=== PATIENT | male | born 1955 | race Caucasian/White ===

== ENCOUNTER → 2023-12-02 11:39 | Outpatient (BNVA) | payer SELFPAY | PROVIDERS: PCP Internal Medicine ==

== ENCOUNTER 2024-06-18 05:01 | Inpatient (IN) | payer OTHER, SELFPAY ==
--- NOTE | ~2024-06-18 | CT_ITS ---
EXAMINATION: CT ABDOMEN AND PELVIS WITHOUT CONTRAST CLINICAL INFORMATION: Left lower quadrant/flank pain. Nausea and vomiting. COMPARISON: CT abdomen and pelvis 05/18/2008.. TECHNIQUE: Multidetector volumetric imaging was performed from the superior aspect of the liver through the pubic symphysis. Sagittal and coronal reformatted images were obtained on the technologist's workstation. This CT examination was performed using dose optimization techniques as appropriate, variously including the following: *Automated exposure control *Adjustment of mA and/or kV according to patient size (this includes techniques or standardized protocols for targeted exams where dose is matched to indication/reason for exam; i.e. extremities or head) *Use of iterative reconstruction technique FINDINGS: LUNG BASES: There is bibasilar platelike atelectasis. The heart size is normal. LIVER, GALLBLADDER, AND BILIARY TREE: The liver is normal in size, shape, and attenuation. There is diffuse attenuation of liver without focal lesion. No intrahepatic ductal dilatation. The gallbladder is unremarkable with no evidence of radiopaque gallstones, gallbladder wall thickening, or obvious pericholecystic inflammatory changes. PANCREAS: Unremarkable. SPLEEN: Unremarkable. A small axis is 1.6 cm splenule is seen along the inferior tip of spleen. ADRENAL GLANDS: Unremarkable. KIDNEYS AND URETERS: The kidneys are normal in size, shape, and attenuation. The left kidney is slightly enlarged with perinephric stranding and mild hydroureteronephrosis secondary to an obstructive 4 mm radiopaque calculi right mid/distal ureter. There are nonobstructive 2 mm and 1 mm radiopaque calculi lower pole left kidney. There are no radiopaque calculus in right kidney. There are bilateral exophytic isodense lesions to kidney probable cyst. Largest mid pole right kidney is 1 cm BLADDER: Unremarkable. GASTROINTESTINAL TRACT: Diffuse scattered colonic diverticuli seen with mild constipation. The small bowel loops are normal caliber. Appendix is not visualized. ABDOMINAL WALL: Mild left inguinal hernia containing fat. LYMPH NODES: Normal. VASCULAR: Unremarkable. PELVIC VISCERA: Unremarkable. OSSEOUS STRUCTURES: No aggressive lytic or sclerotic process seen. CT/CT abdomen pelvis wo IV con IMPRESSION: Nonobstructive radiopaque calculi left mid/distal ureter with mild hydroureteronephrosis. Small radiopaque nonobstructing calculi in left kidney lower pole. Bilateral exophytic renal lesions most on the right probable cyst. Colonic diverticulosis most prominent in the sigmoid region. No diverticulitis. Hepatic steatosis. Bibasilar platelike atelectasis. Prominent left inguinal canal containing fat. Fleischner guidelines were followed. Electronically signed by: Gregory Villegas MD 06/18/2024 09:09 AM [facility]
--- NOTE | ~2024-06-18 | US_ITS ---
CLINICAL HISTORY: left ureteral stone [address] US Renal (limited). Comparison: CT of the abdomen from 06/18/2024. Findings: Right kidney is not evaluated. Left kidney measures 11.7 cm long axis. Mild left-sided hydroureteronephrosis persists without significant change from comparison. Cystic lesions measure 1.5 cm in 1 cm in the midportion and lower pole of the imaged left kidney. Neither ureteral jet is visualized by the technologist in the urinary bladder. No ultrasound correlate for the known stone in the distal portion of the left ureter noted on the comparison CT. Mild wall thickening of the imaged urinary bladder is likely due to underdistention at the time of the imaging. IMPRESSION: 1. No significant change in mild left-sided hydroureteronephrosis compared to 06/18/2024. 2. The right kidney is not imaged. This document has been electronically signed by: Franklin Obando MD on 06/20/2024 19:26:56
--- NOTE | ~2024-06-18 | FL_ITS ---
EXAMINATION: XR FLUOROSCOPY WITH IMAGES CLINICAL INFORMATION: Cystoscopy with left laser lithotripsy and stent placement. COMPARISON: CT abdomen and pelvis 06/18/2024. TECHNIQUE: Fluoroscopy provided to: Dr. Parish Fluoroscopy time: 0.3 minutes Dose: 12.26 mGy Images: 4 FINDINGS: 4 images during retrograde cystoscopy and left ureteroscopy, laser lithotripsy, and subsequent left ureteral stent placement. Please refer to the full operative report for details. FL/FL guidance in OR IMPRESSION: Fluoroscopic guidance. Electronically signed by: Jeffery Dasilva MD 06/23/2024 12:15 PM [facility]
[2024-06-18 05:04] VITALS: BP 166/67; PULSE 120; RESP 18; TEMP 36.7; O2SAT 95; BMI 39.9
[2024-06-18 05:20] LABS: MANUAL DIFF FLAG NO
[2024-06-18 05:21] LABS: Basophils Absolute Auto 0.1 X10*3/uL (0.0-0.2); Basophils Percent Auto 0.4 % (0-2); Eosinophils Percent Auto 0.2 % (0-4); Hematocrit 44.2 % (42.0-52.0); Hemoglobin 15.2 g/dl (14.0-18.0); Imm Gran Abs Auto 0.03 X10*3/uL (0.00-0.03); Imm Gran Pct Auto 0.2 % (0.0-0.4); Lymphocytes Absolute Auto 1.4 X10*3/uL (1.2-4.9); Lymphocytes Percent Auto 10.6 % (20-40); Mean Corpuscular HGB Conc 34.4 g/dl (31.0-36.0); Mean Corpuscular Hemoglobin 28.6 pg (27.0-33.0); Mean Corpuscular Volume 83.1 fL (80.0-98.0); Mean Platelet Volume 9.6 fL (9.4-12.4); Monocytes Absolute Auto 1.2 X10*3/uL (0.1-1.2); Monocytes Percent Auto 9.6 % (2-11); Neutrophils Absolute Auto 10.1 x10*3/uL (2.0-8.3); Platelet Count 233 X10*3/uL (160-400); Red Blood Count 5.32 X10*6/uL (4.60-5.80); Red Cell Distribution Width 13.2 % (11.0-16.0); White Blood Count 12.7 X10*3/uL (4.8-10.8)
[2024-06-18 05:31] VITALS: BP 156/103; PULSE 110; RESP 18; TEMP 37.3; O2SAT 94
[2024-06-18 05:40] LABS: Alanine Aminotransferase 28 U/L (0-40); Albumin Level 4.1 g/dL (3.5-5.0); Alkaline Phosphatase 78 U/L (39-117); Anion Gap 13 (12-20); Aspartate Amino Transferase 32 U/L (5-37); Bilirubin Total 1.5 mg/dL (0.0-1.0); Blood Urea Nitrogen 25 mg/dL (9-16); Calcium 9.2 mg/dL (8.4-10.2); Carbon Dioxide 22 mmol/L (22-29); Chloride 107 mmol/L (96-108); Creatinine Clr Calc Pharmacy 37.4; Estimated Glomerular Filt Rate 33; Glucose Random 167 mg/dL (60-115); Lipase 23 U/L (8-78); Sodium 138 mmol/L (135-145); Total Protein 7.7 g/dL (6.5-8.0)
[2024-06-18 05:49] LABS: Appearance Urine Clear; Color Urine Dark Yellow; Glucose Urine UA Negative (Negative); Leukocyte Esterase Urine Negative (Negative); Nitrite Urine Negative (Negative); PH 5.5 (5.0-9.0); Specific Gravity - Urine >= 1.030 (1.005-1.025); UMIC TRIGGER UACC YES; Urine Blood Small (1+) (Negative); Urine Ketones Negative (Negative); Urine Protein 100 (2+) mg/dL (Neg-Trace)
[2024-06-18 06:19] LABS: Bacteria Urine None Seen (None Seen); Hyaline Casts Urine 0-2 /LPF (0-2); RBC Urine 0-2 /HPF (0-2); Squamous Epithelial Cell Urine 0-2 /HPF (0-2); WBC Urine 0-5 /HPF (0-5)
--- NOTE | 2024-06-18 07:02 | ED_ITS ---
HPI - Back Pain/Injury General Chief Complaint: Back Pain/Injury Stated Complaint: lower back pain Time Seen by Provider: 06/18/24 06:35 Source: patient, RN notes reviewed and old records reviewed Mode of arrival: ambulatory History of Present Illness ED Provider: Alice Reed PA-C HPI Narrative: 68-year-old male with no significant past medical history presenting to the ED complaining of intermittent left lower quadrant abdominal pain x4 days with radiation to back. Reports associated nausea and vomiting. States urine noted to be dark. Denies fever, chills, diarrhea, dysuria, marya hematuria, history of stones, prior abdominal surgeries Related Data Allergies Allergy/AdvReac Type Severity Reaction Status Date / Time No Known Allergies Allergy Verified 06/18/24 05:08 Review of Systems 2 Review of Systems: Yes all other systems are reviewed and are negative Constitutional: Constitutional: Reports as per [facility] Past Medical History Attestation statement: The following information was validated with the patient. Source: old records reviewed Social History Social History Smoked in Last 30 Days: No Advance Directives: No Do you have a plan to hurt others: No Plan Physical Exam 2 Vital Signs: Vital Signs: Last Vital Signs Temp 99.9 F 06/18/24 08:31 Pulse 96 06/18/24 08:31 Resp 16 06/18/24 08:31 BP 160/84 H 06/18/24 08:31 Pulse Ox 94 06/18/24 08:31 O2 Del Method Room Air 06/18/24 08:31 BMI result Body Mass Index 39.9 Const: General: cooperative, healthy appearing and no acute distress O rientation/consciousness: patient oriented x3 Limitations: no limitations HEENT: Head: Yes normal to inspection and Yes atraumatic Ears: hearing grossly normal bilaterally General nose exam: Normal external nose present Face and sinus: Yes normal facial exam Eyes: General: appearance normal, both eyes and all related structures EOM: EOMs intact bilaterally Neck: Neck: Yes normal visual inspection and Yes no meningeal signs Resp: Effort & Inspection: normal respiratory effort and no respiratory distress Auscultation: clear to auscultation bilaterally Cardio: Rate: regular rate and tachycardic Heart sounds: S1 normal heart sound present and S2 normal heart sound present GI: Inspection: Yes normal to inspection Palpation (GI): Soft to palpation, Tenderness to palpation present (GI) in the LLQ; with no rebound tenderness, no guarding and not rigid : General: Yes CVA tenderness on the left Back/Spine/Pelvis: Back: CVA tenderness Skin: Rashes: no rashes Wounds: no wounds Neuro: General: patient oriented x3, tone normal and no meningeal signs C ranial nerves: Yes CN's II-XII intact bilaterally Gait exam (Neuro): Normal gait present Extrem: General: Yes normal to inspection Course Course Course Narrative: -711--leukocytosis of 12.7. BRIGIDA with BUN 25, creatinine 2.0. T bili 1.5 -UA not infected. Small blood > still low suspicion for severe sepsis. No evidence of infection. Vital sign abnormalities likely from pain. BRIGIDA suspected from obstructive pathology 929--patient is still in significant amount of pain CT abdomen pelvis wo IV con IMPRESSION: Nonobstructive radiopaque calculi left mid/distal ureter with mild hydroureteronephrosis. Small radiopaque nonobstructing calculi in left kidney lower pole. Bilateral exophytic renal lesions most on the right probable cyst. Colonic diverticulosis most prominent in the sigmoid region. No diverticulitis. Hepatic steatosis. Bibasilar platelike atelectasis. Prominent left inguinal canal containing fat. Fleischner guidelines were followed. ADDENDUM #1 The impression should correctly read as follows, Obstructive 4 mm radiopaque calculi left mid/distal ureter with mild hydronephrosis. > will consult Urology, Dr. Decker >> recommended medicine admission due to age and he will consult. Case discussed with hospitalist, MANUELA De La Cruz Medications Administered Discontinued Medications Generic Name Dose Route Start Last Admin Trade Name Freq PRN Reason Stop Dose Admin Sodium Chloride 1,000 mls @ 999 mls/hr 06/18/24 07:00 06/18/24 09:01 Ns IV 06/18/24 08:00 Infused .Q1H1M RERE Infusion Sodium Chloride 1,000 mls @ 999 mls/hr 06/18/24 07:15 06/18/24 10:03 Ns IV 06/18/24 08:15 Infused .Q1H1M RERE Infusion Ketorolac Tromethamine 15 mg 06/18/24 09:07 06/18/24 09:25 Ketorolac Tromethamine 15 Mg/Ml Vial IVPUSH 06/18/24 09:08 15 mg ONCE ONE Administration Morphine Sulfate 4 mg 06/18/24 06:57 06/18/24 07:10 Morphine Sulfate 4 Mg/Ml Cartridge IVPUSH 06/18/24 06:58 4 mg ONCE ONE Administration Protocol Morphine Sulfate 4 mg 06/18/24 09:07 06/18/24 09:25 Morphine Sulfate 4 Mg/Ml Cartridge IVPUSH 06/18/24 09:08 4 mg ONCE ONE Administration Protocol Ondansetron HCl 4 mg 06/18/24 06:57 06/18/24 07:10 Ondansetron Hcl 4 Mg/2 Ml Vial IVPUSH 06/18/24 06:58 4 mg ONCE ONE Administration Tamsulosin HCl 0.4 mg 06/18/24 09:33 06/18/24 10:30 Tamsulosin Hcl 0.4 Mg Capsule PO 06/18/24 09:34 0.4 mg ONCE ONE Administration Medical Decision Making Medical Decision Making MDM Narrative: 68-year-old male with no significant past medical history presenting to the ED complaining of intermittent left lower quadrant abdominal pain x4 days with radiation to back. On exam hypertensive, tachycardic likely from pain, appears uncomfortable, abdomen soft with LLQ & L CVAT. Concern for renal stone vs pyelo vs UTI. Rule out diverticulitis. Lower suspicion for appendicitis, cholecystitis/lithiasis, pancreatitis or testicular torsion at this time Low suspicion for severe sepsis at this time Plan: Labs, UA, CT AP, IVF, pain control Please refer to course for remaining clinical decision making, interpretation of labs/imaging results, and discussions with consultants and/or family members. Differential Diagnosis Differential Diagnoses: The differential diagnosis associated with the presentation includes As above Admission/Observation Consideration of admission/observation: Escalation of care including admission/observation considered Consult Healthcare Provider Management of the patient was discussed with: Hospitalist and [employer] Lab Data MDM Lab Attestation statement: I reviewed the patient's lab results. 06/18/24 05:11 06/18/24 05:11 Labs: Lab Results 06/18/24 06/18/24 Range/Units 05:11 05:42 WBC 12.7 H (4.8-10.8) X10*3/uL RBC 5.32 (4.60-5.80) X10*6/uL Hgb 15.2 (14.0-18.0) g/dl Hct 44.2 (42.0-52.0) % MCV 83.1 (80.0-98.0) fL MCH 28.6 (27.0-33.0) pg MCHC 34.4 (31.0-36.0) g/dl RDW 13.2 (11.0-16.0) % Plt Count 233 (160-400) X10*3/uL MPV 9.6 (9.4-12.4) fL Immature Gran % (Auto) 0.2 (0.0-0.4) % Neut % (Auto) 79.0 H (45-73) % Lymph % (Auto) 10.6 L (20-40) % [place] % (Auto) 9.6 (2-11) % Eos % (Auto) 0.2 (0-4) % Baso % (Auto) 0.4 (0-2) % Lymph # (Auto) 1.4 (1.2-4.9) X10*3/uL [place] # (Auto) 1.2 (0.1-1.2) X10*3/uL Eos # (Auto) 0.0 (0.0-0.4) X10*3/uL Baso # (Auto) 0.1 (0.0-0.2) X10*3/uL Abs Immat Gran (auto) 0.03 (0.00-0.03) X10*3/uL Absolute Neuts (auto) 10.1 H (2.0-8.3) x10*3/uL Absolute Nucleated RBC 0.000 (0.0-0.012) X10*3/uL Nucleated RBC % (auto) 0.0 (0.0-0.2) /100WBC Sodium 138 (135-145) mmol/L Potassium 4.0 (3.3-5.1) mmol/L Chloride 107 (96-108) mmol/L Carbon Dioxide 22 (22-29) mmol/L Anion Gap 13 (12-20) BUN 25 H (9-16) mg/dL Creatinine 2.00 H (0.5-1.4) mg/dL Estim Creat Clear Calc 37.4 Estimated GFR 33 Random Glucose 167 H (60-115) mg/dL Calcium 9.2 (8.4-10.2) mg/dL Magnesium 1.9 (1.6-2.6) mg/dL Total Bilirubin 1.5 H (0.0-1.0) mg/dL AST 32 (5-37) U/L ALT 28 (0-40) U/L Alkaline Phosphatase 78 (39-117) U/L Total Protein 7.7 (6.5-8.0) g/dL Albumin 4.1 (3.5-5.0) g/dL Lipase 23 (8-78) U/L Urine Color Dark Yellow Urine Appearance Clear Urine pH 5.5 (5.0-9.0) Ur Specific [place] >= 1.030 H (1.005-1.025) Urine Protein 100 (2+) H (Neg-Trace) mg/dL Urine Glucose (UA) Negative (Negative) mg/dL Urine Ketones Negative (Negative) mg/dL Urine Blood Small (1+) H (Negative) Urine Nitrite Negative (Negative) Ur Leukocyte Esterase Negative (Negative) Urine RBC 0-2 (0-2) /HPF Urine WBC 0-5 (0-5) /HPF Ur Squamous Epith Cells 0-2 (0-2) /HPF Urine Bacteria None Seen (None Seen) Hyaline Casts 0-2 (0-2) /LPF Independent Interpretation I performed an independent interpretation of an: CT Scan Radiology Impression Discussion of test interpretation with radiology: I have reviewed the radiologist's reading. External Record Review External record reviewed: Inpatient record, Office record, Outpatient record, Prior outpatient labs, Prior outpatient radiology, Primary care record and Outside ED record Tests considered The following testing was considered but not selected: As above Prescription Management I considered prescription management with: Pain Medication and Antibiotic Chronic Conditions Patient?s care impacted by: Other Social Determinants Patient?s care significantly limited by Social Determinants of Health including: Other Social Determinant of Health Critical Care Time Critical Care Time Critical Care Time: Yes Total Critical Care Time: 45 Attestation: I have personally provided critical care time exclusive of time spent on separately billable procedures. Time includes review of lab data, radiology results, discussion with consultants, and monitoring for potential decompensation. Intervention performed as documented. Discharge Plan Discharge Clinical Impression: Ureteral obstruction, left, Hydronephrosis Patient Disposition: Admitted As Inpatient Print Language: Malay
--- NOTE | 2024-06-18 07:02 | PC.NURSE ---
Pt medicated per mar.
[2024-06-18] MEDS: ondansetron HCL 4 MG/2 ML VIAL IVPUSH (07:10)
[2024-06-18] MEDS: Morphine Sulfate 4 MG/ML CARTRIDGE IVPUSH ×2 (07:10→09:25)
[2024-06-18] MEDS: 0.9 % Sodium Chloride 1,000 ML 999 ML IV ×2 (07:10→09:01)
[2024-06-18 07:12] LABS: Magnesium 1.9 mg/dL (1.6-2.6)
[2024-06-18 08:31] VITALS: BP 160/84; PULSE 96; RESP 16; TEMP 37.7; O2SAT 94
[2024-06-18] MEDS: Ketorolac Tromethamine 15 MG/ML VIAL IVPUSH (09:25)
[2024-06-18] MEDS: Tamsulosin HCL 0.4 MG CAPSULE PO (10:30)
--- NOTE | 2024-06-18 11:00 | PHA.MEDREC ---
Addendum entered by Laura Mehta RPh 06/18/24 11:02: Reviewed by [facility]. Original Note: Pharmacy Consult ? Medication Reconciliation Pharmacy has completed the medication reconciliation.
--- NOTE | 2024-06-18 11:36 | PM.IMHP ---
History of Present Illness Date of Service: 06/18/24 Attending physician on admission: Grisel Wheeler Chief Complaint: Abdominal pain Pt is a 68-year-old male without any significant PMH not on home medications who has not seen a PCP for 15+ years who presents to the ED for evaluation of LLQ abdominal pain radiating to back and associated N/V x4 days. Pt reports has also experienced reduced urine output in the does urine and also turned dark colored. Has not been eating or drinking much during this time due to pain and N/V. Has never experienced similar symptoms in the past. No fever, chills. Denies chest pain/pressure, palpitations. No shortness a breath or difficulty breathing. Pt has a remote smoking history though quit 40 years ago. Denies alcohol or illicit substance use. In the ED pt was tachycardic up to 120 and hypertensive to 166/67. Labs were significant for leukocytosis 12.7, BUN 25, creatinine 2.00 (baseline unknown), and T bili 1.5. Stable H&H. No significant electrolyte abnormalities. UA negative for UTI. CT?of abdomen and pelvis found nonobstructive 4 mm calculi in left ureter with mild hydroureteronephrosis. Pt was treated with IVF, ondansetron, morphine, ketorolac, and tamsulosin. Pt will be admitted to the hospital for BRIGIDA and intractable abd pain in the setting of nonobstructing ureterolithiasis with hydroureteronephrosis. Review of Systems Review of Systems: Negative except for that which is stated in the [facility] Social History Smoked in Last 30 Days: No Advance Directives: No Do you have a plan to hurt others: No Plan Meds Allergies Allergy/AdvReac Type Severity Reaction Status Date / Time No Known Allergies Allergy Verified 06/18/24 05:08 Home Medications ?Medication ?Instructions ?Recorded ?Confirmed ?Last Taken ?Type No Known Home Meds 06/18/24 06/18/24 Unknown History Physical Exam Vital Signs and Narrative: Vital Signs: Last Vital Signs Temp 99.9 F 06/18/24 08:31 Pulse 96 06/18/24 08:31 Resp 16 06/18/24 08:31 BP 160/84 H 06/18/24 08:31 Pulse Ox 94 06/18/24 08:31 O2 Del Method Room Air 06/18/24 08:31 BMI result Body Mass Index 39.9 General: AOx3, no acute distress Resp: CTA bilaterally CVS: S1, S2, RRR GI: +BS, no distention, LLQ tenderness Back: Left CVA tenderness Skin: Warm, dry Neuro: Cranial nerves II-XII grossly intact bilaterally. Motor grossly intact bilaterally Extremities: No edema Psych: Appropriate affect Results Labs 06/18/24 05:11 06/18/24 05:11 Labs: Laboratory Results - last 24 hr 06/18/24 06/18/24 05:11 05:42 MCV 83.1 MCH 28.6 MCHC 34.4 RDW 13.2 Plt Count 233 MPV 9.6 Immature Gran % (Auto) 0.2 Neut % (Auto) 79.0 H Lymph % (Auto) 10.6 L [place] % (Auto) 9.6 Eos % (Auto) 0.2 Baso % (Auto) 0.4 Lymph # (Auto) 1.4 [place] # (Auto) 1.2 Eos # (Auto) 0.0 Baso # (Auto) 0.1 Abs Immat Gran (auto) 0.03 Absolute Neuts (auto) 10.1 H Absolute Nucleated RBC 0.000 Nucleated RBC % (auto) 0.0 Anion Gap 13 Estim Creat Clear Calc 37.4 Estimated GFR 33 Random Glucose 167 H Calcium 9.2 Magnesium 1.9 Total Bilirubin 1.5 H AST 32 ALT 28 Alkaline Phosphatase 78 Total Protein 7.7 Albumin 4.1 Lipase 23 Urine Color Dark Yellow Urine Appearance Clear Urine pH 5.5 Ur Specific [place] >= 1.030 H Urine Protein 100 (2+) H Urine Glucose (UA) Negative Urine Ketones Negative Urine Blood Small (1+) H Urine Nitrite Negative Ur Leukocyte Esterase Negative Urine RBC 0-2 Urine WBC 0-5 Ur Squamous Epith Cells 0-2 Urine Bacteria None Seen Hyaline Casts 0-2 Imaging Radiologist's Impressions: Impressions Abdomen/Pelvis CT 06/18/24 08:22 IMPRESSION: Nonobstructive radiopaque calculi left mid/distal ureter with mild hydroureteronephrosis. Small radiopaque nonobstructing calculi in left kidney lower pole. Bilateral exophytic renal lesions most on the right probable cyst. Colonic diverticulosis most prominent in the sigmoid region. No diverticulitis. Hepatic steatosis. Bibasilar platelike atelectasis. Prominent left inguinal canal containing fat. Fleischner guidelines were followed. Electronically signed by: Gregory Villegas MD 06/18/2024 09:09 AM [facility] [place] and Plan (1) Hydronephrosis: Status: Acute (2) BRIGIDA (acute kidney injury): Status: Acute Plan Pt is a 68-year-old male without any significant PMH not on home medications who has not seen a PCP for 15+ years who presents to the ED for evaluation of LLQ abdominal pain radiating to back and associated N/V x4 days. Pt will be admitted to the hospital for BRIGIDA and intractable abd pain in the setting of nonobstructing ureterolithiasis with hydroureteronephrosis. BRIGIDA in the setting of ureterolithiasis with hydroureter nephrosis Patient's creatinine 2.00 at time of presentation CT of abdomen/pelvis found nonobstructive ureteral calculi with mild hydroureteronephrosis Pt with decreased urine output, reduced p.o. intake Will treat with IVF, tamsulosin, analgesics for pain management Screen urine x24 hours to see if passes on its own Urology consult Follow creatinine Leukocytosis Reactionary, not due to sepsis UA negative No indication for antibiotics at this time Elevated BP Pt denies any previous history of hypertension Has health checkups every other year for his job though does not follow with PCP Possibly secondary to pain Will monitor BP Full Code Attending:?Dr. Wheeler DVT Prophylaxis: Pneumatic compression due to possible urologic procedure. Pt will require a hospitalization of at least two nights for treatment of?BRIGIDA intractable abdominal pain in the setting of nonobstructing ureterolithiasis with hydroureteronephrosis. Pt will require hospital level care administration of IVF, IV analgesics, and specialist consultation with Urology with possible cystoscopy and stenting. Quality Stroke Does the patient have a stroke diagnosis?: No VTE Prior VTE?: No VTE Risk Level:: Medical - moderate - high VTE Device Contraindication: N/A - Device Ordered VTE Drug Contraindication: Treatment Not Indicated
[2024-06-18 13:43] VITALS: BP 139/70; PULSE 95; RESP 16; TEMP 37.2; O2SAT 95
[2024-06-18] MEDS: Lactated Ringers 1,000 ML 100 ML IVCONT ×2 (13:48→23:26)
[2024-06-18] MEDS: 0.9 % Sodium Chloride Flush 3 ML SYRINGE IVFLUSH (13:48)
--- NOTE | 2024-06-18 14:05 | PC.NURSE ---
complaining of left flank pain at this time but states that it is improved. no nausea/vomiting. skin pwd. moist mm. aware of plan for proceedure in am, NPO at midnight and to strain urine.
[2024-06-18 16:15] VITALS: BP 147/86; PULSE 93; RESP 20; TEMP 36.6; O2SAT 95
[2024-06-18 17:02] VITALS: BMI 40.5
[2024-06-18 19:03] VITALS: BP 145/93; PULSE 99; RESP 20; TEMP 37.2; O2SAT 96
[2024-06-18] MEDS: oxyCODONE HCl Immed Release 5 MG TABLET PO (23:36)
[2024-06-19] VITALS (8 sets, daily range): BP systolic 142–198; BP diastolic 82–110; PULSE 92–120; RESP 16–20; TEMP 36.3–36.9; O2SAT 92–97
[2024-06-19] MEDS: Morphine Sulfate 4 MG/ML CARTRIDGE IVPUSH (00:03)
--- NOTE | 2024-06-19 04:37 | PC.NURSE ---
Patient with elevated bp manual 178/90, hr 101, rechecked about 30 min later 165/88. Patient reporting 8/10 left flank pain but does not want to take any pain meds at this time, reporting pain comes and goes. Patient continues to strain urine. Dr. Frye notified of elevated bp.
[2024-06-19 06:16] LABS: Hematocrit 39.1 % (42.0-52.0); Hemoglobin 12.9 g/dl (14.0-18.0); Mean Corpuscular Hemoglobin 28.2 pg (27.0-33.0); Mean Corpuscular Volume 85.6 fL (80.0-98.0); Mean Platelet Volume 10.2 fL (9.4-12.4); Platelet Count 157 X10*3/uL (160-400); Red Blood Count 4.57 X10*6/uL (4.60-5.80); Red Cell Distribution Width 13.3 % (11.0-16.0); White Blood Count 8.1 X10*3/uL (4.8-10.8)
[2024-06-19 06:29] LABS: Anion Gap 9 (12-20); Blood Urea Nitrogen 27 mg/dL (9-16); Calcium 8.5 mg/dL (8.4-10.2); Carbon Dioxide 23 mmol/L (22-29); Chloride 110 mmol/L (96-108); Creatinine Clr Calc Pharmacy 38.6; Estimated Glomerular Filt Rate 34; Glucose Random 122 mg/dL (60-115); Potassium 4.2 mmol/L (3.3-5.1); Sodium 138 mmol/L (135-145)
--- NOTE | 2024-06-19 08:41 | PM.UROCN ---
History of Present Illness Consult details Consult date: 06/19/24 Narrative: Ermias is a 68 year old male admitted with left flank pain x several days, CTAP left renal calculi, non obstructive, and 4 mm left mid ureteral stone, minimal hydronephrosis, labs BRIGIDA. Plan to monitor with supportive management IV fluid hydration, pain management to see if he passes stone. Review of Systems Review of Systems: Yes all other systems are reviewed and are negative Constitutional: Constitutional: Reports no additional constitutional complaints Eyes: Eyes: Reports no additional eye complaints ENT: Reports system reviewed and no additional complaints, except as documented Cardiovascular: Cardiovascular: Reports no additional cardiovascular complaints Respiratory: Respiratory: Reports no additional respiratory complaints Gastrointestinal: Gastrointestinal: Reports no additional gastrointestinal complaints Genitourinary: Genitourinary: Reports as per HPI Musculoskeletal: Musculoskeletal: Reports no additional musculoskeletal complaints Integumentary/Breasts: Skin/Breast: Reports system reviewed and no additional complaints, except as docu Neurologic: Reports system reviewed and no additional complaints, except as documented Psychiatric: Psychiatric: Reports no additional psychiatric complaints Endocrine: Endocrine: Reports no additional endocrine complaints Hematologic/Lymphatic: Hematologic/Lymphatic: Reports no additional hematologic/lymphatic complaints Allergic/Immunologic: Allergic/Immunologic: Reports no additional allergic/immunologic complaints PMFSH Social History Social History Household Members: Family and Children Housing: House Do you presently have visiting nurse or other home services: No Patient Tobacco Use Status: Never used Tobacco Meds Allergies Allergy/AdvReac Type Severity Reaction Status Date / Time No Known Allergies Allergy Verified 06/18/24 05:08 Active Medications: Current Medications Acetaminophen (Acetaminophen 325 Mg Tablet) 650 mg PO Q6H PRN PRN Reason: Pain, Mild 1-3,fever,headache Calcium Carbonate (Calcium Carbonate 750 Mg Tab.Chew) 750 mg PO Q4H PRN PRN Reason: Heartburn Lactated Ringer's (Lr) 1,000 mls @ 100 mls/hr IVCONT .Q10H [facility] Last Admin: 06/18/24 23:26 Dose: 100 mls/hr Magnesium Hydroxide (Milk Of Magnesia 30 Ml Oral.Susp) 30 ml PO DAILY PRN PRN Reason: Constipation Melatonin (Melatonin 3 Mg Tablet) 6 mg PO BEDTIME PRN PRN Reason: Insomnia Morphine Sulfate (Morphine Sulfate 4 Mg/Ml Cartridge) 4 mg IVPUSH Q4H PRN; Protocol PRN Reason: Pain, Severe (Pain Scale 7-10) Last Admin: 06/19/24 00:03 Dose: 4 mg Ondansetron HCl (Ondansetron Hcl 4 Mg/2 Ml Vial) 4 mg IVPUSH Q8H PRN PRN Reason: Nausea and Vomiting Oxycodone HCl (Oxycodone Hcl Immed Release 5 Mg Tablet) 5 mg PO Q6H PRN PRN Reason: Pain, Moderate(Pain Scale 4-6) Last Admin: 06/18/24 23:36 Dose: 5 mg Sodium Chloride (0.9 % Sodium Chloride Flush 3 Ml Syringe) 3 ml IVFLUSH QSHIFT [facility] Last Admin: 06/19/24 08:40 Dose: Not Given Tamsulosin HCl (Tamsulosin Hcl 0.4 Mg Capsule) 0.4 mg PO DAILY [facility] Home Medications ?Medication ?Instructions ?Recorded ?Confirmed ?Last Taken ?Type No Known Home Meds 06/18/24 06/18/24 Unknown History Physical Exam Vital Signs: Vital Signs: Last Vital Signs Temp 97.8 F 06/19/24 07:38 Pulse 92 06/19/24 07:38 Resp 16 06/19/24 07:38 BP 150/90 H 06/19/24 07:38 Pulse Ox 95 06/19/24 07:38 O2 Del Method Room Air 06/19/24 07:38 BMI result Body Mass Index 40.5 Results Labs 06/19/24 05:24 06/19/24 05:24 Labs: Abnormal lab results 06/19/24 Range/Units 05:24 RBC 4.57 L (4.60-5.80) X10*6/uL Hgb 12.9 L (14.0-18.0) g/dl Hct 39.1 L (42.0-52.0) % Plt Count 157 L D (160-400) X10*3/uL Chloride 110 H (96-108) mmol/L Anion Gap 9 L (12-20) BUN 27 H (9-16) mg/dL Creatinine 1.96 H (0.5-1.4) mg/dL Random Glucose 122 H (60-115) mg/dL Short CBC 06/19/24 Range/Units 05:24 WBC 8.1 (4.8-10.8) X10*3/uL Hgb 12.9 L (14.0-18.0) g/dl Hct 39.1 L (42.0-52.0) % Plt Count 157 L D (160-400) X10*3/uL BMP 06/19/24 05:24 Sodium 138 Potassium 4.2 Chloride 110 H Carbon Dioxide 23 BUN 27 H Creatinine 1.96 H Calcium 8.5 D Urine 06/18/24 Range/Units 05:42 Urine Color Dark Yellow Urine Appearance Clear Urine pH 5.5 (5.0-9.0) Ur Specific [place] >= 1.030 H (1.005-1.025) Urine Protein 100 (2+) H (Neg-Trace) mg/dL Urine Glucose (UA) Negative (Negative) mg/dL Imaging Abdomen CT scan report/results: report reviewed and image reviewed CT scan - pelvis: report reviewed and image reviewed Additional studies: TD/TT: 06/18/24 EXAMINATION: CT ABDOMEN AND PELVIS WITHOUT CONTRAST CLINICAL INFORMATION: Left lower quadrant/flank pain. Nausea and vomiting. COMPARISON: CT abdomen and pelvis 05/18/2008.. TECHNIQUE: Multidetector volumetric imaging was performed from the superior aspect of the liver through the pubic symphysis. Sagittal and coronal reformatted images were obtained on the technologist's workstation. This CT examination was performed using dose optimization techniques as appropriate, variously including the following: *Automated exposure control *Adjustment of mA and/or kV according to patient size (this includes techniques or standardized protocols for targeted exams where dose is matched to indication/reason for exam; i.e. extremities or head) *Use of iterative reconstruction technique FINDINGS: LUNG BASES: There is bibasilar platelike atelectasis. The heart size is normal. LIVER, GALLBLADDER, AND BILIARY TREE: The liver is normal in size, shape, and attenuation. There is diffuse attenuation of liver without focal lesion. No intrahepatic ductal dilatation. The gallbladder is unremarkable with no evidence of radiopaque gallstones, gallbladder wall thickening, or obvious pericholecystic inflammatory changes. PANCREAS: Unremarkable. SPLEEN: Unremarkable. A small axis is 1.6 cm splenule is seen along the inferior tip of spleen. ADRENAL GLANDS: Unremarkable. KIDNEYS AND URETERS: The kidneys are normal in size, shape, and attenuation. The left kidney is slightly enlarged with perinephric stranding and mild hydroureteronephrosis secondary to an obstructive 4 mm radiopaque calculi right mid/distal ureter. There are nonobstructive 2 mm and 1 mm radiopaque calculi lower pole left kidney. There are no radiopaque calculus in right kidney. There are bilateral exophytic isodense lesions to kidney probable cyst. Largest mid pole right kidney is 1 cm BLADDER: Unremarkable. GASTROINTESTINAL TRACT: Diffuse scattered colonic diverticuli seen with mild constipation. The small bowel loops are normal caliber. Appendix is not visualized. ABDOMINAL WALL: Mild left inguinal hernia containing fat. LYMPH NODES: Normal. VASCULAR: Unremarkable. PELVIC VISCERA: Unremarkable. OSSEOUS STRUCTURES: No aggressive lytic or sclerotic process seen. IMPRESSION: Nonobstructive radiopaque calculi left mid/distal ureter with mild hydroureteronephrosis. Small radiopaque nonobstructing calculi in left kidney lower pole. Bilateral exophytic renal lesions most on the right probable cyst. Other findings as above. Assessment and Plan (1) BRIGIDA (acute kidney injury): Status: Acute (2) Left ureteral stone: Status: Acute Plan left mid ureteral stone, 4 mm, minimal hydronephrosis, labs BRIGIDA. Plan to monitor with supportive management IV fluid hydration, pain management to see if he passes stone. Procedures Date of Service Date of Service: 06/19/24
[2024-06-19] MEDS: Lactated Ringers 1,000 ML 125 ML IVCONT ×2 (08:54→17:03)
[2024-06-19] MEDS: ondansetron HCL 4 MG/2 ML VIAL IVPUSH (08:54)
[2024-06-19] MEDS: HYDROmorphone HCl 0.5 MG/0.5 ML SYRINGE IVPUSH (08:54)
[2024-06-19] MEDS: Tamsulosin HCL 0.4 MG CAPSULE PO ×2 (08:54→13:26)
[2024-06-19] MEDS: Milk of Magnesia 30 ML ORAL.SUSP PO (09:00)
--- NOTE | 2024-06-19 12:30 | P.PNIM_ITS ---
Subjective Subjective Date of Service: 06/19/24 Interval History: BRIGIDA in the setting of ureterolithiasis Review of Systems pain seems similar no nausea or vomiting or fevers Physical Exam 2 Vital Signs: Vital Signs: Last Vital Signs Temp 97.8 F 06/19/24 07:38 Pulse 92 06/19/24 07:38 Resp 16 06/19/24 07:38 BP 150/90 H 06/19/24 07:38 Pulse Ox 95 06/19/24 07:38 O2 Del Method Room Air 06/19/24 07:38 BMI result Body Mass Index 40.5 Appearance: Alert.? Oriented X3. cvs: [id number], [id number]. res: clear to auscultation ,no rhonchii or wheezing abd: no rebound or guarding ,nt, bs present. ext pulses present , no cyanosis . Gu -intermittent flank pain neuro: axo3 , nonfocal. Objective Data Active Medications Acetaminophen (Acetaminophen 325 Mg Tablet) 650 mg PO Q6H PRN PRN Reason: Pain, Mild 1-3,fever,headache Calcium Carbonate (Calcium Carbonate 750 Mg Tab.Chew) 750 mg PO Q4H PRN PRN Reason: Heartburn Hydromorphone HCl (Hydromorphone Hcl 0.5 Mg/0.5 Ml Syringe) 0.5 mg IVPUSH Q3H PRN; Protocol PRN Reason: Pain, Severe (Pain Scale 7-10) Last Admin: 06/19/24 08:54 Dose: 0.5 mg Documented By: CARLOS Lactated Ringer's (Lr) 1,000 mls @ 100 mls/hr IVCONT .Q10H [facility] Last Admin: 06/19/24 08:54 Dose: 100 mls/hr Documented By: CARLOS Magnesium Hydroxide (Milk Of Magnesia 30 Ml Oral.Susp) 30 ml PO DAILY PRN PRN Reason: Constipation Last Admin: 06/19/24 09:00 Dose: 30 ml Documented By: CARLOS Melatonin (Melatonin 3 Mg Tablet) 6 mg PO BEDTIME PRN PRN Reason: Insomnia Ondansetron HCl (Ondansetron Hcl 4 Mg/2 Ml Vial) 4 mg IVPUSH Q8H PRN PRN Reason: Nausea and Vomiting Last Admin: 06/19/24 08:54 Dose: 4 mg Documented By: CARLOS Oxycodone HCl (Oxycodone Hcl Immed Release 5 Mg Tablet) 5 mg PO Q6H PRN PRN Reason: Pain, Moderate(Pain Scale 4-6) Last Admin: 06/18/24 23:36 Dose: 5 mg Documented By: RICARDO Sodium Chloride (0.9 % Sodium Chloride Flush 3 Ml Syringe) 3 ml IVFLUSH QSHIFT [facility] Last Admin: 06/19/24 08:40 Dose: Not Given Documented By: CARLOS Non-Admin Reason: IV Running Tamsulosin HCl (Tamsulosin Hcl 0.4 Mg Capsule) 0.4 mg PO DAILY [facility] Last Admin: 06/19/24 08:54 Dose: 0.4 mg Documented By: CARLOS Labs 06/19/24 05:24 06/19/24 05:24 Labs: Laboratory Results - last 24 hr 06/19/24 05:24 MCV 85.6 MCH 28.2 MCHC 33.0 RDW 13.3 Plt Count 157 L D MPV 10.2 Absolute Nucleated RBC 0.000 Nucleated RBC % (auto) 0.0 Anion Gap 9 L Estim Creat Clear Calc 38.6 Estimated GFR 34 Random Glucose 122 H Calcium 8.5 D Assessment and Plan (1) Left ureteral stone: Status: Acute (2) BRIGIDA (acute kidney injury): Status: Acute Plan 68-year-old male without any significant PMH not on home medications who has not seen a PCP for 15+ years who presents to the ED for evaluation of LLQ abdominal pain radiating to back and associated N/V x4 days. Pt will be admitted to the hospital for BRIGIDA and intractable abd pain in the setting of nonobstructing ureterolithiasis with hydroureteronephrosis. BRIGIDA in the setting of ureterolithiasis with mild hydroureteronephrosis. cr simialr to yesterday CT of abdomen/pelvis found nonobstructive ureteral calculi with mild hydroureteronephrosis Pt with decreased urine output, reduced p.o. intake continue IVF, tamsulosin, analgesics for pain management Screen urine x24 hours to see if passes on its own Urology consult-continue above ,moniter renal function electrolytes. moniter bmp. Leukocytosis-resolved. Reactionary, not due to sepsis UA negative No indication for antibiotics at this time Elevated BP Pt denies any previous history of hypertension Has health checkups every other year for his job though does not follow with PCP Possibly secondary to pain adjusted pain meds. continue monitor BP Full Code DVT Prophylaxis: Pneumatic compression due to possible urologic procedure. onoging hospitalization for treatment of?BRIGIDA, intractable abdominal pain in the setting of nonobstructing ureterolithiasis with hydroureteronephrosis- IVF, IV analgesics, and specialist consultation with Urology with possible cystoscopy and stenting. Quality Stroke Does the patient have a stroke diagnosis?: No VTE Prior VTE?: No VTE Risk Level:: Medical - moderate - high VTE Device Contraindication: N/A - Device Ordered VTE Drug Contraindication: Treatment Not Indicated
--- NOTE | 2024-06-19 13:29 | MHC.CM.PN ---
pt lives with is working and independent he will drive hinself home as his car is in the parking lot
[2024-06-19 15:21] LABS: Creatinine Urine 86.51 mg/dL; Microalbum/Creatinine Ratio Ur 43.9 ug/mg cr (<30); Protein/Creatinine Ratio, Ur 0.16 (<0.2); Total Protein Urine Random 14 mg/dL (<12)
[2024-06-19] MEDS: bisacodyL 5 MG TABLET.DR 10 MG PO (17:22)
[2024-06-19] MEDS: Metoprolol Tartrate 50 MG TABLET PO (19:53)
[2024-06-19] MEDS: Docusate Sodium 100 MG CAPSULE PO (19:53)
--- NOTE | 2024-06-19 21:17 | PC.NURSE ---
Pt's BP at 1930 was 198/110 manually and HR was 120. [place] text to Dr. Frye and she ordered 50 mg of PO metoprolol given at 1952. Pt's BP at 2115 was 176/82 and HR was 101.
[2024-06-20] VITALS (9 sets, daily range): BP systolic 140–172; BP diastolic 70–92; PULSE 80–90; RESP 16–85; TEMP 36.7–37.2; O2SAT 92–96
[2024-06-20] MEDS: HYDROmorphone HCl 0.5 MG/0.5 ML SYRINGE IVPUSH (01:27)
[2024-06-20] MEDS: Lactated Ringers 1,000 ML 125 ML IVCONT ×4 (01:30→23:23)
[2024-06-20 07:10] LABS: Anion Gap 13 (12-20); Blood Urea Nitrogen 22 mg/dL (9-16); Calcium 8.8 mg/dL (8.4-10.2); Carbon Dioxide 23 mmol/L (22-29); Chloride 107 mmol/L (96-108); Creatinine Clr Calc Pharmacy 41.8; Estimated Glomerular Filt Rate 37; Glucose Random 108 mg/dL (60-115); Potassium 4.5 mmol/L (3.3-5.1); Sodium 138 mmol/L (135-145)
[2024-06-20] MEDS: Milk of Magnesia 30 ML ORAL.SUSP PO (08:08)
[2024-06-20] MEDS: Tamsulosin HCL 0.4 MG CAPSULE 0.8 MG PO (08:08)
[2024-06-20] MEDS: Docusate Sodium 100 MG CAPSULE PO ×2 (08:09→19:53)
[2024-06-20] MEDS: Metoprolol Tartrate 50 MG TABLET PO ×2 (08:09→19:53)
--- NOTE | 2024-06-20 10:53 | HO.PM.IMPN ---
Subjective Subjective Date of Service: 06/20/24 Interval History: renal colic ,brigida Review of Systems seems pain somewhat improving no fevers Physical Exam Vital Signs: Vital Signs: Last Vital Signs Temp 98.0 F 06/20/24 07:23 Pulse 86 06/20/24 07:23 Resp 18 06/20/24 07:23 BP 140/70 H 06/20/24 08:09 Pulse Ox 94 06/20/24 07:23 O2 Del Method Room Air 06/20/24 07:23 BMI result Body Mass Index 40.5 Appearance: Alert.? Oriented X3. cvs: rrr, [id number]. res: clear to auscultation ,no rhonchii or wheezing abd: no rebound or guarding ,nt, bs present. ext pulses present , no cyanosis . Gu -intermittent flank pain neuro: axo3 , nonfocal. Objective Data Active Medications Acetaminophen (Acetaminophen 325 Mg Tablet) 650 mg PO Q6H PRN PRN Reason: Pain, Mild 1-3,fever,headache Calcium Carbonate (Calcium Carbonate 750 Mg Tab.Chew) 750 mg PO Q4H PRN PRN Reason: Heartburn Docusate Sodium (Docusate Sodium 100 Mg Capsule) 100 mg PO BID [facility] Last Admin: 06/20/24 08:09 Dose: 100 mg Documented By: CARLOS Hydromorphone HCl (Hydromorphone Hcl 0.5 Mg/0.5 Ml Syringe) 0.5 mg IVPUSH Q3H PRN; Protocol PRN Reason: Pain, Severe (Pain Scale 7-10) Last Admin: 06/20/24 01:27 Dose: 0.5 mg Documented By: BONNIE Lactated Ringer's (Lr) 1,000 mls @ 125 mls/hr IVCONT .Q8H [facility] Last Admin: 06/20/24 09:43 Dose: 125 mls/hr Documented By: CARLOS Magnesium Hydroxide (Milk Of Magnesia 30 Ml Oral.Susp) 30 ml PO DAILY PRN PRN Reason: Constipation Last Admin: 06/20/24 08:08 Dose: 30 ml Documented By: CARLOS Melatonin (Melatonin 3 Mg Tablet) 6 mg PO BEDTIME PRN PRN Reason: Insomnia Metoprolol Tartrate (Metoprolol Tartrate 50 Mg Tablet) 50 mg PO BID [facility]; Protocol Last Admin: 06/20/24 08:09 Dose: 50 mg Documented By: CARLOS Ondansetron HCl (Ondansetron Hcl 4 Mg/2 Ml Vial) 4 mg IVPUSH Q8H PRN PRN Reason: Nausea and Vomiting Last Admin: 06/19/24 08:54 Dose: 4 mg Documented By: CARLOS Oxycodone HCl (Oxycodone Hcl Immed Release 5 Mg Tablet) 5 mg PO Q6H PRN PRN Reason: Pain, Moderate(Pain Scale 4-6) Last Admin: 06/18/24 23:36 Dose: 5 mg Documented By: RICARDO Sodium Biphosphate/Sodium Phosphate (Sodium Phosphate,[place]-Dibasic 133 Ml Enema) 133 ml [place] ONCE PRN PRN Reason: Constipation Sodium Chloride (0.9 % Sodium Chloride Flush 3 Ml Syringe) 3 ml IVFLUSH QSHIFT [facility] Last Admin: 06/20/24 07:22 Dose: Not Given Documented By: CARLOS Non-Admin Reason: IV Running Tamsulosin HCl (Tamsulosin Hcl 0.4 Mg Capsule) 0.8 mg PO DAILY [facility] Last Admin: 06/20/24 08:08 Dose: 0.8 mg Documented By: CARLOS Labs 06/19/24 05:24 06/20/24 05:23 Labs: Laboratory Results - last 24 hr 06/19/24 06/20/24 14:30 05:23 Hold Purple Top SEE NOTE Anion Gap 13 Estim Creat Clear Calc 41.8 Estimated GFR 37 Random Glucose 108 Calcium 8.8 U Random Total Protein 14 H Urine Creatinine 86.51 Urine Microalbumin 38.0 Microalb/Creat Ratio 43.9 H Protein/Creatinin Ratio 0.16 Assessment and Plan (1) Left ureteral stone: Status: Acute (2) BRIGIDA (acute kidney injury): Status: Acute Plan 68-year-old male without any significant PMH not on home medications who has not seen a PCP for 15+ years who presents to the ED for evaluation of LLQ abdominal pain radiating to back and associated N/V x4 days. Pt will be admitted to the hospital for BRIGIDA and intractable abd pain in the setting of nonobstructing ureterolithiasis with hydroureteronephrosis. BRIGIDA in the setting of ureterolithiasis with mild hydroureteronephrosis. cr simialr to yesterday CT of abdomen/pelvis found nonobstructive ureteral calculi with mild hydroureteronephrosis Pt with decreased urine output, reduced p.o. intake continue IVF, tamsulosin, analgesics for pain management Screen urine x24 hours to see if passes on its own Urology consult-continue above ,moniter renal function electrolytes. moniter bmp. Leukocytosis-resolved. Reactionary, not due to sepsis UA negative No indication for antibiotics at this time Elevated BP Pt denies any previous history of hypertension Has health checkups every other year for his job though does not follow with PCP Possibly secondary to pain adjusted pain meds. continue monitor BP Full Code DVT Prophylaxis: Pneumatic compression due to possible urologic procedure. onoging hospitalization for treatment of?BRIGIDA, intractable abdominal pain in the setting of nonobstructing ureterolithiasis with hydroureteronephrosis- IVF, IV analgesics, and specialist consultation with Urology with possible cystoscopy and stenting. Quality Stroke Does the patient have a stroke diagnosis?: No VTE Prior VTE?: No VTE Risk Level:: Medical - moderate - high VTE Device Contraindication: N/A - Device Ordered VTE Drug Contraindication: Treatment Not Indicated
--- NOTE | 2024-06-20 17:38 | P.PNUR_ITS ---
Subjective Subjective Date of Service: 06/20/24 Patient reports: pain is less and blood in stool Interval history: Ermias being evaluated BRIGIDA and left flank pain, with left ureteral stone 4 mm. Has been treated with IVF hydration, and pain management. Unclear if he may have passed stone. per Nursing has not asked for pain meds today, creat improving 1.81 Will evaluate with renal/bladder US Physical Exam 2 Vital Signs: Vital Signs: Last Vital Signs Temp 98.3 F 06/20/24 15:09 Pulse 85 06/20/24 15:09 Resp 85 H 06/20/24 15:09 BP 164/82 H 06/20/24 15:09 Pulse Ox 93 06/20/24 15:09 O2 Del Method Room Air 06/20/24 15:09 BMI result Body Mass Index 40.5 Urology Results Labs 06/19/24 05:24 06/20/24 05:23 Labs: Laboratory Results - last 24 hr 06/20/24 05:23 Hold Purple Top SEE NOTE Sodium 138 Potassium 4.5 Chloride 107 Carbon Dioxide 23 Anion Gap 13 BUN 22 H Creatinine 1.81 H Estim Creat Clear Calc 41.8 Estimated GFR 37 Random Glucose 108 Calcium 8.8 Progress Note: A&P Assessment and plan (1) Left ureteral stone: Status: Acute (2) BRIGIDA (acute kidney injury): Status: Acute (3) Hydronephrosis: Status: Acute Plan Has been treated with IVF hydration, and pain management. Unclear if he may have passed stone. per Nursing has not asked for pain meds today, creat improving 1.81 Will evaluate with renal/bladder US Time Spent With Patient Time: Total time managing care of this patient today ____ minutes. Progress Note: Quality Stroke Does the patient have a stroke diagnosis?: No
[2024-06-21] VITALS (10 sets, daily range): BP systolic 115–193; BP diastolic 62–105; PULSE 74–90; RESP 16–18; TEMP 36.1–37; O2SAT 91–96
[2024-06-21 06:26] LABS: Anion Gap 12 (12-20); Blood Urea Nitrogen 25 mg/dL (9-16); Calcium 8.7 mg/dL (8.4-10.2); Carbon Dioxide 20 mmol/L (22-29); Chloride 108 mmol/L (96-108); Estimated Glomerular Filt Rate 36; Glucose Random 110 mg/dL (60-115); Potassium 4.2 mmol/L (3.3-5.1); Sodium 136 mmol/L (135-145)
[2024-06-21] MEDS: Metoprolol Tartrate 50 MG TABLET PO ×2 (08:07→20:09)
[2024-06-21] MEDS: Tamsulosin HCL 0.4 MG CAPSULE 0.8 MG PO (08:08)
[2024-06-21] MEDS: amLODIPine Besylate 2.5 MG TABLET PO (09:42)
--- NOTE | 2024-06-21 09:42 | PM.CNNEP ---
History of Present Illness Reason for Consult Consult date: 06/21/24 Reason for consult: BRIGIDA Chief Complaint Chief complaint: Left ureternephrosis w/intractable pain History of Present Illness Narrative: 68-year-old male without any significant PMH not on home medications who has not seen a PCP for 15+ years who presents to the ED for evaluation of LLQ abdominal pain radiating to back and associated N/V x4 days. Pt reports has also experienced reduced urine output in the does urine and also turned dark colored. Has not been eating or drinking much during this time due to pain and N/V. Has never experienced similar symptoms in the past. No fever, chills. Denies chest pain/pressure, palpitations. No shortness a breath or difficulty breathing. Pt has a remote smoking history though quit 40 years ago. Denies alcohol or illicit substance use. Creatinine was 2.0 on admission currently at 1.8 PMFSH Past Medical History Medical History (Updated 06/21/24 @ 17:38 by Cal López MD) Hypertension Surgical History Surgical History (Updated 06/21/24 @ 17:08 by Annita Arteaga RN) No pertinent past surgical history Social History Social History Household Members: Family and Children Housing: House Are you a primary direct care counselor to a significant other at home: No Do you presently have visiting nurse or other home services: No Patient Tobacco Use Status: Never used Tobacco service: No Meds Allergies Allergy/AdvReac Type Severity Reaction Status Date / Time No Known Allergies Allergy Verified 06/21/24 17:08 Active Medications: Current Medications Acetaminophen (Acetaminophen 325 Mg Tablet) 650 mg PO Q6H PRN PRN Reason: Pain, Mild 1-3,fever,headache Amlodipine Besylate (Amlodipine Besylate 2.5 Mg Tablet) 2.5 mg PO DAILY [facility]; Protocol Calcium Carbonate (Calcium Carbonate 750 Mg Tab.Chew) 750 mg PO Q4H PRN PRN Reason: Heartburn Docusate Sodium (Docusate Sodium 100 Mg Capsule) 100 mg PO BID [facility] Last Admin: 06/21/24 08:10 Dose: Not Given Hydromorphone HCl (Hydromorphone Hcl 0.5 Mg/0.5 Ml Syringe) 0.5 mg IVPUSH Q3H PRN; Protocol PRN Reason: Pain, Severe (Pain Scale 7-10) Last Admin: 06/20/24 01:27 Dose: 0.5 mg Lactated Ringer's (Lr) 1,000 mls @ 125 mls/hr IVCONT .Q8H [facility] Last Infusion: 06/21/24 08:11 Dose: Infused Magnesium Hydroxide (Milk Of Magnesia 30 Ml Oral.Susp) 30 ml PO DAILY PRN PRN Reason: Constipation Last Admin: 06/20/24 08:08 Dose: 30 ml Melatonin (Melatonin 3 Mg Tablet) 6 mg PO BEDTIME PRN PRN Reason: Insomnia Metoprolol Tartrate (Metoprolol Tartrate 50 Mg Tablet) 50 mg PO BID [facility]; Protocol Last Admin: 06/21/24 08:07 Dose: 50 mg Ondansetron HCl (Ondansetron Hcl 4 Mg/2 Ml Vial) 4 mg IVPUSH Q8H PRN PRN Reason: Nausea and Vomiting Last Admin: 06/19/24 08:54 Dose: 4 mg Oxycodone HCl (Oxycodone Hcl Immed Release 5 Mg Tablet) 5 mg PO Q6H PRN PRN Reason: Pain, Moderate(Pain Scale 4-6) Last Admin: 06/18/24 23:36 Dose: 5 mg Sodium Biphosphate/Sodium Phosphate (Sodium Phosphate,[place]-Dibasic 133 Ml Enema) 133 ml [place] ONCE PRN PRN Reason: Constipation Sodium Chloride (0.9 % Sodium Chloride Flush 3 Ml Syringe) 3 ml IVFLUSH QSHIFT [facility] Last Admin: 06/21/24 07:11 Dose: Not Given Tamsulosin HCl (Tamsulosin Hcl 0.4 Mg Capsule) 0.8 mg PO DAILY [facility] Last Admin: 06/21/24 08:08 Dose: 0.8 mg Home Medications ?Medication ?Instructions ?Recorded ?Confirmed ?Last Taken ?Type No Known Home Meds 06/18/24 06/21/24 Unknown History Physical Exam Vital Signs: Last Vital Signs Temp 97.6 F 06/21/24 08:32 Pulse 90 06/21/24 08:32 Resp 18 06/21/24 08:32 BP 193/99 H 06/21/24 08:32 Pulse Ox 96 06/21/24 08:32 O2 Del Method Room Air 06/21/24 08:32 BMI result Body Mass Index 40.5 Comfortable Neck supple no JVD. Lungs entry equal no rales. Heart S1-S2 heard no gallop or rub. Abdomen soft nontender. Neuro alert awake oriented. No asterixis. Extremities no edema. Results Lab Results 06/19/24 05:24 06/22/24 09:13 Lab results: Chemistry 06/19/24 06/20/24 06/21/24 05:24 05:23 05:50 Sodium 138 138 136 Potassium 4.2 4.5 4.2 Carbon Dioxide 23 23 20 L BUN 27 H 22 H 25 H Creatinine 1.96 H 1.81 H 1.89 H Calcium 8.5 D 8.8 8.7 Hematology 06/19/24 05:24 WBC 8.1 Hgb 12.9 L Plt Count 157 L D Urine Studies 06/19/24 14:30 Urine Creatinine 86.51 Assessment and Plan (1) BRIGIDA (acute kidney injury): Status: Acute Plan 68-year-old man with acute kidney injury in a setting of obstructive uropathy. He also also had hypertension. He is not on any medications for hypertension. Do unclear if he has underlying chronic kidney disease. Further clinical course we will determine this. For now I have initiated a workup including urine studies. Optimize blood pressure Avoid hypotension. Agree with IV hydration Urological intervention for hydronephrosis. Further workup will be based on the outcome of the above baseline investigations Procedures Date of Service Date of Service: 06/22/24
--- NOTE | 2024-06-21 09:49 | P.PNUR_ITS ---
Subjective Subjective Date of Service: 06/21/24 Interval history: No pain Ultrasound with mild hydro Will DC home and follow-up in office in 6-8 weeks Is on new blood pressure medication Physical Exam 2 Vital Signs: Vital Signs: Last Vital Signs Temp 97.6 F 06/21/24 08:32 Pulse 90 06/21/24 08:32 Resp 18 06/21/24 08:32 BP 193/99 H 06/21/24 08:32 Pulse Ox 96 06/21/24 08:32 O2 Del Method Room Air 06/21/24 08:32 BMI result Body Mass Index 40.5 Const: General: cooperative, healthy appearing, comfortable and no acute distress Orientation/consciousness: patient oriented x3 HEENT: Face and sinus: Yes normal facial exam Mouth: moist mucous membranes Neck: Neck: Yes normal visual inspection, Yes full ROM and Yes trachea midline Chest: Chest palpation & inspection: normal inspection of the chest Resp: Effort & Inspection: normal respiratory effort, able to speak in complete sentences and no respiratory distress GI: Inspection: Yes normal to inspection Back/Spine/Pelvis: Cervical Spine: normal cervical lordosis Thoracic/Lumbar Spine: thoracic and lumbar spine normal to inspection Skin: General skin exam: no rashes or lesions noted Neuro: General: patient oriented x3, tone normal and moves all extremities Extrem: General: Yes normal to inspection and Yes capillary refill normal Urology Results Labs 06/19/24 05:24 06/21/24 05:50 Labs: Laboratory Results - last 24 hr 06/21/24 05:50 Sodium 136 Potassium 4.2 Chloride 108 Carbon Dioxide 20 L Anion Gap 12 BUN 25 H Creatinine 1.89 H Estim Creat Clear Calc 40.0 Estimated GFR 36 Random Glucose 110 Calcium 8.7 Progress Note: A&P Assessment and plan (1) Ureteral obstruction, left: Status: Acute (2) Hydronephrosis: Status: Acute Plan outpatient followup Time Spent With Patient Time: Total time managing care of this patient today ____ minutes. Progress Note: Quality Stroke Does the patient have a stroke diagnosis?: No
[2024-06-21] MEDS: Lactated Ringers 1,000 ML 125 ML IVCONT ×2 (11:34→22:15)
--- NOTE | 2024-06-21 12:16 | HO.PM.IMPN ---
Subjective Subjective Date of Service: 06/21/24 Interval History: brigida , renal colic elevated bp Review of Systems pain seems improving significantly brigida similar elevated bp Physical Exam Vital Signs: Vital Signs: Last Vital Signs Temp 97.6 F 06/21/24 08:32 Pulse 90 06/21/24 08:32 Resp 18 06/21/24 08:32 BP 193/99 H 06/21/24 08:32 Pulse Ox 96 06/21/24 08:32 O2 Del Method Room Air 06/21/24 08:32 BMI result Body Mass Index 40.5 Appearance: Alert.? Oriented X3. cvs: rrr, [id number]. res: clear to auscultation ,no rhonchii or wheezing abd: no rebound or guarding ,nt, bs present. ext pulses present , no cyanosis . Gu -intermittent flank pain neuro: axo3 , nonfocal. Objective Data Active Medications Acetaminophen (Acetaminophen 325 Mg Tablet) 650 mg PO Q6H PRN PRN Reason: Pain, Mild 1-3,fever,headache Amlodipine Besylate (Amlodipine Besylate 2.5 Mg Tablet) 2.5 mg PO DAILY [facility]; Protocol Last Admin: 06/21/24 09:42 Dose: 2.5 mg Documented By: ALAN Calcium Carbonate (Calcium Carbonate 750 Mg Tab.Chew) 750 mg PO Q4H PRN PRN Reason: Heartburn Docusate Sodium (Docusate Sodium 100 Mg Capsule) 100 mg PO BID RERE Last Admin: 06/21/24 08:10 Dose: Not Given Documented By: ALAN Non-Admin Reason: pt refused, having BMs Hydromorphone HCl (Hydromorphone Hcl 0.5 Mg/0.5 Ml Syringe) 0.5 mg IVPUSH Q3H PRN; Protocol PRN Reason: Pain, Severe (Pain Scale 7-10) Last Admin: 06/20/24 01:27 Dose: 0.5 mg Documented By: BONNIE Lactated Ringer's (Lr) 1,000 mls @ 125 mls/hr IVCONT .Q8H RERE Last Admin: 06/21/24 11:34 Dose: 125 mls/hr Documented By: ALAN Magnesium Hydroxide (Milk Of Magnesia 30 Ml Oral.Susp) 30 ml PO DAILY PRN PRN Reason: Constipation Last Admin: 06/20/24 08:08 Dose: 30 ml Documented By: CARLOS Melatonin (Melatonin 3 Mg Tablet) 6 mg PO BEDTIME PRN PRN Reason: Insomnia Metoprolol Tartrate (Metoprolol Tartrate 50 Mg Tablet) 50 mg PO BID [facility]; Protocol Last Admin: 06/21/24 08:07 Dose: 50 mg Documented By: ALAN Ondansetron HCl (Ondansetron Hcl 4 Mg/2 Ml Vial) 4 mg IVPUSH Q8H PRN PRN Reason: Nausea and Vomiting Last Admin: 06/19/24 08:54 Dose: 4 mg Documented By: CARLOS Oxycodone HCl (Oxycodone Hcl Immed Release 5 Mg Tablet) 5 mg PO Q6H PRN PRN Reason: Pain, Moderate(Pain Scale 4-6) Last Admin: 06/18/24 23:36 Dose: 5 mg Documented By: RICARDO Sodium Biphosphate/Sodium Phosphate (Sodium Phosphate,[place]-Dibasic 133 Ml Enema) 133 ml CA ONCE PRN PRN Reason: Constipation Sodium Chloride (0.9 % Sodium Chloride Flush 3 Ml Syringe) 3 ml IVFLUSH QSHIFT [facility] Last Admin: 06/21/24 07:11 Dose: Not Given Documented By: ALAN Non-Admin Reason: IV Running Tamsulosin HCl (Tamsulosin Hcl 0.4 Mg Capsule) 0.8 mg PO DAILY [facility] Last Admin: 06/21/24 08:08 Dose: 0.8 mg Documented By: ALAN Labs 06/19/24 05:24 06/21/24 05:50 Labs: Laboratory Results - last 24 hr 06/21/24 05:50 Anion Gap 12 Estim Creat Clear Calc 40.0 Estimated GFR 36 Random Glucose 110 Calcium 8.7 Assessment and Plan (1) Left ureteral stone: Status: Acute (2) BRIGIDA (acute kidney injury): Status: Acute Plan 68-year-old male without any significant PMH not on home medications who has not seen a PCP for 15+ years who presents to the ED for evaluation of LLQ abdominal pain radiating to back and associated N/V x4 days. Pt will be admitted to the hospital for BRIGIDA and intractable abd pain in the setting of nonobstructing ureterolithiasis with hydroureteronephrosis. BRIGIDA in the setting of ureterolithiasis with mild hydroureteronephrosis. cr simialr to yesterday CT of abdomen/pelvis found nonobstructive ureteral calculi with mild hydroureteronephrosis Pt with decreased urine output, reduced p.o. intake continue IVF, tamsulosin, analgesics for pain management Screen urine to see if passes on its own Urology consult-continue above ,moniter renal function electrolytes.npo ,urology will decide for procedure moniter bmp. Leukocytosis-resolved. Reactionary, not due to sepsis UA negative No indication for antibiotics at this time Elevated BP Pt denies any previous history of hypertension Has health checkups every other year for his job though does not follow with PCP pain improving still has elevated bp encouraged for lifestyle modifcations, if needed will add htn med. nephrology eval for brigida /persistently evalated bp. morbid obesity-encouraged to lose weight Full Code DVT Prophylaxis: Pneumatic compression due to possible urologic procedure. onoging hospitalization for treatment of?BRIGIDA, intractable abdominal pain in the setting of nonobstructing ureterolithiasis with hydroureteronephrosis- IVF, IV analgesics, and specialist consultation with Urology with possible cystoscopy and stenting. Quality Stroke Does the patient have a stroke diagnosis?: No VTE Prior VTE?: No VTE Risk Level:: Medical - moderate - high VTE Device Contraindication: N/A - Device Ordered VTE Drug Contraindication: Treatment Not Indicated
[2024-06-21 12:43] LABS: Creatinine Urine 73.64 mg/dL; Total Protein Urine Random 10 mg/dL (<12)
--- NOTE | 2024-06-21 13:28 | MHC.CM.PN ---
PER MD ROUNDS, PT NOT MEDICALLY CLEARED DCP REMAINS HOME NO SERVICES VIA PRIVATE TRANSPORT
--- NOTE | 2024-06-21 17:37 | HO.ANESPROP2 ---
HPI - Anesthesia Eval Consult details Narrative: Left ureter obstruction PMFSH Active Problems Active Problems: All Active Problems Left ureteral stone (Acute) BRIGIDA (acute kidney injury) (Acute) Hydronephrosis (Acute) Ureteral obstruction, left (Acute) Past Medical History Medical History (Updated 06/21/24 @ 17:38 by Cal López MD) Hypertension Family History Family history of problems with anesthesia: No Surgical History Surgical History (Updated 06/21/24 @ 17:08 by Annita Arteaga RN) No pertinent past surgical history History of Problems with Anesthesia: No Social History Social History Household Members: Family and Children Housing: House Are you a primary vision care associate to a significant other at home: No Do you presently have visiting nurse or other home services: No Patient Tobacco Use Status: Never used Tobacco service: No Meds Allergies Allergy/AdvReac Type Severity Reaction Status Date / Time No Known Allergies Allergy Verified 06/21/24 17:08 Active Medications: Current Medications Acetaminophen (Acetaminophen 325 Mg Tablet) 650 mg PO Q6H PRN PRN Reason: Pain, Mild 1-3,fever,headache Amlodipine Besylate (Amlodipine Besylate 2.5 Mg Tablet) 2.5 mg PO DAILY [facility]; Protocol Last Admin: 06/21/24 09:42 Dose: 2.5 mg Calcium Carbonate (Calcium Carbonate 750 Mg Tab.Chew) 750 mg PO Q4H PRN PRN Reason: Heartburn Docusate Sodium (Docusate Sodium 100 Mg Capsule) 100 mg PO BID [facility]ERE Last Admin: 06/21/24 08:10 Dose: Not Given Hydromorphone HCl (Hydromorphone Hcl 0.5 Mg/0.5 Ml Syringe) 0.5 mg IVPUSH Q3H PRN; Protocol PRN Reason: Pain, Severe (Pain Scale 7-10) Last Admin: 06/20/24 01:27 Dose: 0.5 mg Lactated Ringer's (Lr) 1,000 mls @ 125 mls/hr IVCONT .Q8H RERE Last Infusion: 06/21/24 16:51 Dose: 0 mls/hr Magnesium Hydroxide (Milk Of Magnesia 30 Ml Oral.Susp) 30 ml PO DAILY PRN PRN Reason: Constipation Last Admin: 06/20/24 08:08 Dose: 30 ml Melatonin (Melatonin 3 Mg Tablet) 6 mg PO BEDTIME PRN PRN Reason: Insomnia Metoprolol Tartrate (Metoprolol Tartrate 50 Mg Tablet) 50 mg PO BID [facility]; Protocol Last Admin: 06/21/24 08:07 Dose: 50 mg Ondansetron HCl (Ondansetron Hcl 4 Mg/2 Ml Vial) 4 mg IVPUSH Q8H PRN PRN Reason: Nausea and Vomiting Last Admin: 06/19/24 08:54 Dose: 4 mg Oxycodone HCl (Oxycodone Hcl Immed Release 5 Mg Tablet) 5 mg PO Q6H PRN PRN Reason: Pain, Moderate(Pain Scale 4-6) Last Admin: 06/18/24 23:36 Dose: 5 mg Sodium Biphosphate/Sodium Phosphate (Sodium Phosphate,[place]-Dibasic 133 Ml Enema) 133 ml SD ONCE PRN PRN Reason: Constipation Sodium Chloride (0.9 % Sodium Chloride Flush 3 Ml Syringe) 3 ml IVFLUSH QSHIFT [facility] Last Admin: 06/21/24 15:04 Dose: Not Given Tamsulosin HCl (Tamsulosin Hcl 0.4 Mg Capsule) 0.8 mg PO DAILY [facility] Last Admin: 06/21/24 08:08 Dose: 0.8 mg Home Medications ?Medication ?Instructions ?Recorded ?Confirmed ?Last Taken ?Type No Known Home Meds 06/18/24 06/21/24 Unknown History Exam Height,Weight and Vital Signs: Height 5 ft 3 in Weight 103.8 kg Last Vital Signs Temp 98.6 F 06/21/24 17:08 Pulse 84 06/21/24 17:08 Resp 16 06/21/24 17:08 BP 170/105 H 06/21/24 17:08 Pulse Ox 95 06/21/24 17:08 O2 Del Method Room Air 06/21/24 17:08 Pertinent Lab Results Pertinent Lab Results: Laboratory Tests 06/18/24 06/18/24 06/19/24 05:11 05:42 05:24 WBC 12.7 H 8.1 RBC 5.32 4.57 L Hgb 15.2 12.9 L Hct 44.2 39.1 L MCV 83.1 85.6 MCH 28.6 28.2 MCHC 34.4 33.0 RDW 13.2 13.3 Plt Count 233 157 L D MPV 9.6 10.2 Immature Gran % (Auto) 0.2 Neut % (Auto) 79.0 H Lymph % (Auto) 10.6 L Ralls % (Auto) 9.6 Eos % (Auto) 0.2 Baso % (Auto) 0.4 Lymph # (Auto) 1.4 Ralls # (Auto) 1.2 Eos # (Auto) 0.0 Baso # (Auto) 0.1 Abs Immat Gran (auto) 0.03 Absolute Neuts (auto) 10.1 H Absolute Nucleated RBC 0.000 0.000 Nucleated RBC % (auto) 0.0 0.0 Hold Purple Top Sodium 138 138 Potassium 4.0 4.2 Chloride 107 110 H Carbon Dioxide 22 23 Anion Gap 13 9 L BUN 25 H 27 H Creatinine 2.00 H 1.96 H Estim Creat Clear Calc 37.4 38.6 Estimated GFR 33 34 Random Glucose 167 H 122 H Calcium 9.2 8.5 D Magnesium 1.9 Total Bilirubin 1.5 H AST 32 ALT 28 Alkaline Phosphatase 78 Total Protein 7.7 Albumin 4.1 Lipase 23 Urine Color Dark Yellow Urine Appearance Clear Urine pH 5.5 Ur Specific [place] >= 1.030 H Urine Protein 100 (2+) H Urine Glucose (UA) Negative Urine Ketones Negative Urine Blood Small (1+) H Urine Nitrite Negative Ur Leukocyte Esterase Negative Urine RBC 0-2 Urine WBC 0-5 Ur Squamous Epith Cells 0-2 Urine Bacteria None Seen Hyaline Casts 0-2 U Random Total Protein Ur Random Sodium Urine Creatinine Urine Microalbumin Microalb/Creat Ratio Protein/Creatinin Ratio 06/19/24 06/20/24 06/21/24 14:30 05:23 05:50 WBC RBC Hgb Hct MCV MCH MCHC RDW Plt Count MPV Immature Gran % (Auto) Neut % (Auto) Lymph % (Auto) Ralls % (Auto) Eos % (Auto) Baso % (Auto) Lymph # (Auto) Ralls # (Auto) Eos # (Auto) Baso # (Auto) Abs Immat Gran (auto) Absolute Neuts (auto) Absolute Nucleated RBC Nucleated RBC % (auto) Hold Purple Top SEE NOTE Sodium 138 136 Potassium 4.5 4.2 Chloride 107 108 Carbon Dioxide 23 20 L Anion Gap 13 12 BUN 22 H 25 H Creatinine 1.81 H 1.89 H Estim Creat Clear Calc 41.8 40.0 Estimated GFR 37 36 Random Glucose 108 110 Calcium 8.8 8.7 Magnesium Total Bilirubin AST ALT Alkaline Phosphatase Total Protein Albumin Lipase Urine Color Urine Appearance Urine pH Ur Specific [place] Urine Protein Urine Glucose (UA) Urine Ketones Urine Blood Urine Nitrite Ur Leukocyte Esterase Urine RBC Urine WBC Ur Squamous Epith Cells Urine Bacteria Hyaline Casts U Random Total Protein 14 H Ur Random Sodium Urine Creatinine 86.51 Urine Microalbumin 38.0 Microalb/Creat Ratio 43.9 H Protein/Creatinin Ratio 0.16 06/21/24 11:50 WBC RBC Hgb Hct MCV MCH MCHC RDW Plt Count MPV Immature Gran % (Auto) Neut % (Auto) Lymph % (Auto) Ralls % (Auto) Eos % (Auto) Baso % (Auto) Lymph # (Auto) Ralls # (Auto) Eos # (Auto) Baso # (Auto) Abs Immat Gran (auto) Absolute Neuts (auto) Absolute Nucleated RBC Nucleated RBC % (auto) Hold Purple Top Sodium Potassium Chloride Carbon Dioxide Anion Gap BUN Creatinine Estim Creat Clear Calc Estimated GFR Random Glucose Calcium Magnesium Total Bilirubin AST ALT Alkaline Phosphatase Total Protein Albumin Lipase Urine Color Urine Appearance Urine pH Ur Specific [place] Urine Protein Urine Glucose (UA) Urine Ketones Urine Blood Urine Nitrite Ur Leukocyte Esterase Urine RBC Urine WBC Ur Squamous Epith Cells Urine Bacteria Hyaline Casts U Random Total Protein 10 Ur Random Sodium 143.0 Urine Creatinine 73.64 Urine Microalbumin Microalb/Creat Ratio Protein/Creatinin Ratio Airway Mallampati Class: II TM Dist: >3cm Neck ROM: Full Adult Head Mouth w/[place] Teeth: 1. loose Loose/Missing/Broken Teeth: Yes Heart: RRR Lungs: CTA Assessment and Plan Final Anesthetic Review Family History of Problems with Anesthesia: No History of Problems with Anesthesia: No NPO: Yes ASA Class: II and Emergency Final Preanesthetic Review: No Changes in Pt Med Stat, Meds/Allgs Chart Reviewed, Consent Obtained/Reviewed and Anes Risks/Benef Reviewed Patient Risk: Intermediate Procedure Risk: Low Anesthetic Plan Anesthetic Plan: GA Disposition: Standard PACU
--- NOTE | 2024-06-21 18:09 | MHC.SHP ---
Pre-Procedural Eval Section A - 24 Hr Update-Section A only Date of Service: 06/21/24 The patient is an INPATIENT: Yes The patient has been examined within 24 hours of the surgical procedure. The History & Physical has been completed within 30 days and I have reviewed it.: Yes Section B - Complete if H&P > 30 days Chief Complaint: Left ureternephrosis w/intractable pain Allergies: Allergies Allergy/AdvReac Type Severity Reaction Status Date / Time No Known Allergies Allergy Verified 06/21/24 17:08 Plan Diagnosis/Plan: Unchanged I have reviewed the history and physical and performed a pertinent physical examination on my patient. No changes have occurred unless specified. Left ureteroscopy, laser stent. Time Spent With Patient Time: Total time managing care of this patient today ____ minutes.
--- NOTE | 2024-06-21 19:20 | P.OP_ITS ---
Operative Note Operative Note Date of Service: 06/21/24 Narrative: PreOperative Diagnosis:?? left ureteral stone, left hydro, BRIGIDA Post Operative Diagnosis:?? Left ureteral stone, left hydronephrosis, BRIGIDA Procedure: - Cystoscopy, left retrograde, left ureteroscopy laser lithotripsy stone basket stent insertion, 6 [place] by 26 cm Surgeon:?Dr Michelle Parish Anesthesia:? General Indications for procedure: Obstructive uropathy with BRIGIDA Procedure: After informed consent was verified the patient was brought to the operating placed on the OR table in supine position.? General Anesthesia was administered per protocol.? The patient was placed in lithotomy position, prepped and draped in the usual sterile fashion.? Safety pause time-out and side of surgery confirmed.? Antibiotics confirmed. 2% lidocaine jelly 10 mL was passed transurethrally. A 22 [place] cystoscope was inserted transurethrally, the bulbous urethra was within normal limits. The prostatic urethra was nonobstructive. The bladder was visualized.? Both ureteric orifices were in normal position. An open-ended ureteral catheter was passed into the ureteral orifice and a retrograde examination was performed. There was a filling defect in the distal ureter and dilatation of the proximal ureter. A guidewire was passed through the ureteral catheter into the kidney. The balloon dilator size 12 fr x 4 cm was passed over the guide-wire the balloon was inflated to 8 mmHg and the intramural ureter was dilated for 60 seconds. The balloon was deflated and removed. After removing the balloon dilator the cystoscope was removed, leaving the guidewire in place. The guidewire was used as the safety and was attached to the draping. The semi rigid ureteroscope was passed transurethrally alongside the guidewire into the left distal ureter the stone was visualized initially laser lithotripsy of the stone was done using the 365 fiber with pulsating setting 0.8 joules by 8 hertz. The stone was fragmented and The 0 degree basket was passed through the ureteroscope, to remove the stone fragment for analysis. The ureteroscope was removed. The cystoscope was passed over the safety guidewire. A? 6 [place] by 26 cm stent was placed into the ureter and renal pelvis under a combination of fluoroscopy and direct visualization. The bladder was emptied.? The rigid cystoscope was removed. ?Belladonna suppository placed per rectum. The patient tolerated the procedure well and was brought to the recovery room in stable condition. Complications: None Drains: Ureteral stent as dictated above
[2024-06-21] MEDS: 0.9 % Sodium Chloride Flush 3 ML SYRINGE IVFLUSH (19:58)
[2024-06-21] MEDS: Docusate Sodium 100 MG CAPSULE PO (20:09)
[2024-06-22] VITALS (7 sets, daily range): BP systolic 158–174; BP diastolic 75–96; PULSE 78–108; RESP 18; TEMP 36.3–37; O2SAT 92–97
[2024-06-22] MEDS: Lactated Ringers 1,000 ML 125 ML IVCONT ×3 (05:47→22:39)
--- NOTE | 2024-06-22 08:20 | HO.POSTANES ---
Post Anesthesia Evaluation Post Anesthesia Evaluation Date of Service: 06/22/24 Vital Signs: Vital Signs Temp Pulse Resp BP Pulse Ox O2 Del Method 06/22/24 07:12 97.4 F 94 18 160/95 H 97 Room Air 06/22/24 03:06 98.2 F 81 18 158/82 H 95 Room Air 06/21/24 23:27 98.1 F 87 18 170/89 H 95 Room Air Anesthesia: General Mental Status: Awake Pain Control: Satisfactory Nausea/Vomiting: None Hydration: Adequate Anesthesia-Related Issues: No Anes. Related Issues
[2024-06-22] MEDS: Metoprolol Tartrate 50 MG TABLET PO ×2 (09:36→20:03)
[2024-06-22] MEDS: amLODIPine Besylate 2.5 MG TABLET PO (09:36)
[2024-06-22] MEDS: Tamsulosin HCL 0.4 MG CAPSULE 0.8 MG PO (09:37)
[2024-06-22 09:59] LABS: Anion Gap 14 (12-20); Blood Urea Nitrogen 27 mg/dL (9-16); Calcium 9.2 mg/dL (8.4-10.2); Carbon Dioxide 23 mmol/L (22-29); Chloride 105 mmol/L (96-108); Creatinine Clr Calc Pharmacy 35.6; Estimated Glomerular Filt Rate 31; Glucose Random 106 mg/dL (60-115); Potassium 4.8 mmol/L (3.3-5.1); Sodium 137 mmol/L (135-145)
--- NOTE | 2024-06-22 10:18 | P.PNNP_ITS ---
Subjective Subjective Date of Service: 06/22/24 Interval history: brigida , renal colic elevated bp Status post urologic procedure. He has increased urinary frequency. Mild bump up in the creatinine Physical Exam 2 Vital Signs: Vital Signs: Last Vital Signs Temp 97.4 F 06/22/24 07:12 Pulse 94 06/22/24 09:36 Resp 18 06/22/24 07:12 BP 160/95 H 06/22/24 09:36 Pulse Ox 97 06/22/24 07:12 O2 Del Method Room Air 06/22/24 07:12 O2 Flow Rate 6 06/21/24 19:28 BMI result Body Mass Index 40.5 Comfortable Neck supple no JVD. Lungs entry equal no rales. Heart S1-S2 heard no gallop or rub. Abdomen soft nontender. Neuro alert awake oriented. No asterixis. Extremities no edema. Objective Data Labs 06/19/24 05:24 06/22/24 09:13 Labs: Laboratory Results - last 24 hr 06/21/24 06/22/24 11:50 09:13 Sodium 137 Potassium 4.8 Chloride 105 Carbon Dioxide 23 Anion Gap 14 BUN 27 H Creatinine 2.12 H Estim Creat Clear Calc 35.6 Estimated GFR 31 Random Glucose 106 Calcium 9.2 U Random Total Protein 10 Ur Random Sodium 143.0 Urine Creatinine 73.64 Procedures Date of Service Date of Service: 06/22/24 Assessment & Plan Assessment and plan (1) BRIGIDA (acute kidney injury): Status: Acute Plan 68-year-old man with acute kidney injury in a setting of obstructive uropathy. He also also had hypertension. He is not on any medications for hypertension. unclear if he has underlying chronic kidney disease. Further clinical course we will determine this. Optimize blood pressure Avoid hypotension. Agree with IV hydration Status post Urological intervention for hydronephrosis. Recent bump in creatinine most likely due to additional tubular injury. Watch for ongoing obstruction. Time Spent With Patient Time: Total time managing care of this patient today ____ minutes. Progress Note: Quality Stroke Does the patient have a stroke diagnosis?: No
--- NOTE | 2024-06-22 14:11 | HO.PM.IMPN ---
Subjective Subjective Date of Service: 06/22/24 Interval History: brigida uretral stone Review of Systems pain seems improving significantly brigida similar elevated bp Physical Exam Vital Signs: Vital Signs: Last Vital Signs Temp 97.8 F 06/22/24 11:11 Pulse 94 06/22/24 11:11 Resp 18 06/22/24 11:11 BP 160/75 H 06/22/24 11:11 Pulse Ox 93 06/22/24 11:11 O2 Del Method Room Air 06/22/24 11:11 O2 Flow Rate 6 06/21/24 19:28 BMI result Body Mass Index 40.5 Appearance: Alert.? Oriented X3. cvs: rrr, [id number]. res: clear to auscultation ,no rhonchii or wheezing abd: no rebound or guarding ,nt, bs present. ext pulses present , no cyanosis . Gu -intermittent flank pain neuro: axo3 , nonfocal. Objective Data Active Medications Acetaminophen (Acetaminophen 325 Mg Tablet) 650 mg PO Q6H PRN PRN Reason: Pain, Mild 1-3,fever,headache Amlodipine Besylate (Amlodipine Besylate 2.5 Mg Tablet) 2.5 mg PO DAILY [facility]; Protocol Last Admin: 06/22/24 09:36 Dose: 2.5 mg Documented By: ALAN Calcium Carbonate (Calcium Carbonate 750 Mg Tab.Chew) 750 mg PO Q4H PRN PRN Reason: Heartburn Docusate Sodium (Docusate Sodium 100 Mg Capsule) 100 mg PO BID [facility] Last Admin: 06/22/24 09:37 Dose: Not Given Documented By: ALAN Non-Admin Reason: pt refused, last BM yesterday Hydromorphone HCl (Hydromorphone Hcl 0.5 Mg/0.5 Ml Syringe) 0.5 mg IVPUSH Q3H PRN; Protocol PRN Reason: Pain, Severe (Pain Scale 7-10) Last Admin: 06/20/24 01:27 Dose: 0.5 mg Documented By: BONNIE Lactated Ringer's (Lr) 1,000 mls @ 125 mls/hr IVCONT .Q8H [facility] Last Admin: 06/22/24 09:38 Dose: Not Given Documented By: ALAN Non-Admin Reason: previous bag running still Magnesium Hydroxide (Milk Of Magnesia 30 Ml Oral.Susp) 30 ml PO DAILY PRN PRN Reason: Constipation Last Admin: 06/20/24 08:08 Dose: 30 ml Documented By: CARLOS Melatonin (Melatonin 3 Mg Tablet) 6 mg PO BEDTIME PRN PRN Reason: Insomnia Metoprolol Tartrate (Metoprolol Tartrate 50 Mg Tablet) 50 mg PO BID [facility]; Protocol Last Admin: 06/22/24 09:36 Dose: 50 mg Documented By: ALAN Naloxone HCl (Naloxone Hcl 0.4 Mg/Ml Vial) 0.04 mg IVPUSH Q5M PRN PRN Reason: Excessive sedation or RR < 8 Ondansetron HCl (Ondansetron Hcl 4 Mg/2 Ml Vial) 4 mg IVPUSH Q8H PRN PRN Reason: Nausea and Vomiting Last Admin: 06/19/24 08:54 Dose: 4 mg Documented By: CARLOS Oxycodone HCl (Oxycodone Hcl Immed Release 5 Mg Tablet) 5 mg PO Q6H PRN PRN Reason: Pain, Moderate(Pain Scale 4-6) Last Admin: 06/18/24 23:36 Dose: 5 mg Documented By: RICARDO Sodium Biphosphate/Sodium Phosphate (Sodium Phosphate,[place]-Dibasic 133 Ml Enema) 133 ml DE ONCE PRN PRN Reason: Constipation Sodium Chloride (0.9 % Sodium Chloride Flush 3 Ml Syringe) 3 ml IVFLUSH QSHIFT [facility] Last Admin: 06/22/24 07:09 Dose: Not Given Documented By: ALAN Non-Admin Reason: IV Running Tamsulosin HCl (Tamsulosin Hcl 0.4 Mg Capsule) 0.8 mg PO DAILY [facility] Last Admin: 06/22/24 09:37 Dose: 0.8 mg Documented By: ALAN Labs 06/19/24 05:24 06/22/24 09:13 Labs: Laboratory Results - last 24 hr 06/22/24 09:13 Anion Gap 14 Estim Creat Clear Calc 35.6 Estimated GFR 31 Random Glucose 106 Calcium 9.2 Assessment and Plan (1) Left ureteral stone: Status: Acute (2) BRIGIDA (acute kidney injury): Status: Acute Plan 68-year-old male without any significant PMH not on home medications who has not seen a PCP for 15+ years who presents to the ED for evaluation of LLQ abdominal pain radiating to back and associated N/V x4 days. Pt will be admitted to the hospital for BRIGIDA and intractable abd pain in the setting of nonobstructing ureterolithiasis with hydroureteronephrosis. BRIGIDA in the setting of ureterolithiasis with mild hydroureteronephrosis. cr worsening CT of abdomen/pelvis found nonobstructive ureteral calculi with mild hydroureteronephrosis Pt with decreased urine output, reduced p.o. intake started on IVF, tamsulosin, analgesics for pain management,seen by Urology consult-s/p Cystoscopy, left retrograde, left ureteroscopy laser lithotripsy stone basket stent insertion, 6 Yoruba by 26 cm (on 06/21/23) moniter bmp. nephrology eval adedd d/w urology continue iv hydrationa nd moniter renal function and electrolytes Leukocytosis-resolved. Reactionary, not due to sepsis UA negative No indication for antibiotics at this time Elevated BP Pt denies any previous history of hypertension Has health checkups every other year for his job though does not follow with PCP pain improving still has elevated bp encouraged for lifestyle modifcations, if needed will add htn med. nephrology eval for brigida /persistently evalated bp added amlodipine. morbid obesity-encouraged to lose weight Full Code DVT Prophylaxis: Pneumatic compression due to possible urologic procedure. onoging hospitalization for treatment of?BRIGIDA, intractable abdominal pain in the setting of nonobstructing ureterolithiasis with hydroureteronephrosis- IVF, IV analgesics, and specialist consultation with Urology with possible cystoscopy and stenting. Quality Stroke Does the patient have a stroke diagnosis?: No VTE Prior VTE?: No VTE Risk Level:: Medical - moderate - high VTE Device Contraindication: N/A - Device Ordered VTE Drug Contraindication: Treatment Not Indicated
[2024-06-22] MEDS: Docusate Sodium 100 MG CAPSULE PO (20:03)
--- NOTE | 2024-06-22 21:05 | PM.EVENT ---
Event Note Date of Service: 06/22/24 Event Note: Nurse reported that patient is retaining urine with only frequent tripping throughout the day. Bladder scan for 524. Attempted straight cath which got blocked by a large blood clot. Will order Caraballo catheter and CBI. Appreciate Urology. Closely monitor H&H Time Spent With Patient Time: Total time managing care of this patient today ____ minutes.
--- NOTE | 2024-06-22 21:09 | PC.NURSE ---
Addendum entered by Sarah Spivey RN 06/22/24 23:06: CBI started, large blood clots rushed out the catheter tube immediately after insertion. Urine flow freely, patient states good relief. Original Note: Patient states was not able to fully void throughout the day , only dripping urine frequently. Bladder scanned for 524. Yesterday patient had cystoscopy, lithotripsy and left ureteral stent placement. Dr quinn notified and aware of situation. Ordered st cath. Attempted and immediately a large blood clot occluded tip of catheter. Was not able to drain the urine. Dr Quinn at bedside explaining to patient the need of CBI. Patient agrees, nursing supervisor extruding department made aware.
[2024-06-22] MEDS: HYDROmorphone HCl 0.5 MG/0.5 ML SYRINGE IVPUSH (22:36)
[2024-06-23 04:00] VITALS: BP 158/90; PULSE 76; RESP 16; TEMP 36.6; O2SAT 94
[2024-06-23] MEDS: Lactated Ringers 1,000 ML 125 ML IVCONT (06:47)
[2024-06-23 07:09] VITALS: BP 179/97; PULSE 82; RESP 18; TEMP 36.5; O2SAT 94
[2024-06-23] MEDS: Tamsulosin HCL 0.4 MG CAPSULE 0.8 MG PO (08:44)
[2024-06-23] MEDS: Metoprolol Tartrate 50 MG TABLET PO ×2 (08:44→20:17)
[2024-06-23] MEDS: Docusate Sodium 100 MG CAPSULE PO ×2 (08:45→20:17)
[2024-06-23] MEDS: amLODIPine Besylate 5 MG TABLET PO ×2 (08:45→12:27)
[2024-06-23 09:27] LABS: Hematocrit 39.3 % (42.0-52.0); Hemoglobin 13.1 g/dl (14.0-18.0); Mean Corpuscular HGB Conc 33.3 g/dl (31.0-36.0); Mean Corpuscular Hemoglobin 28.4 pg (27.0-33.0); Mean Corpuscular Volume 85.1 fL (80.0-98.0); Mean Platelet Volume 9.8 fL (9.4-12.4); Platelet Count 232 X10*3/uL (160-400); Red Blood Count 4.62 X10*6/uL (4.60-5.80); Red Cell Distribution Width 13.2 % (11.0-16.0); White Blood Count 6.4 X10*3/uL (4.8-10.8)
[2024-06-23 09:29] LABS: Estimated Average Glucose 131 mg/dL; Hemoglobin A1C 151.0827 umol/L; Hemoglobin A1c % 6.2 % (<6.0); Total Hemoglobin (HGBA1C) 3426.8553 umol/L
--- NOTE | 2024-06-23 09:47 | P.PNIM_ITS ---
Subjective Subjective Date of Service: 06/23/24 Interval History: This history was taken in Yoruba from the patient. No primary care x 15yr Retaining urine; straight cath blocked by large clot; Caraballo placed and started on CBI Abd pain resolved Review of Systems Review of Systems: Yes all other systems are reviewed and are negative Physical Exam 2 Vital Signs: Vital Signs: Last Vital Signs Temp 97.7 F 06/23/24 07:09 Pulse 82 06/23/24 07:09 Resp 18 06/23/24 07:09 BP 179/97 H 06/23/24 07:09 Pulse Ox 94 06/23/24 07:09 O2 Del Method Room Air 06/23/24 07:09 O2 Flow Rate 6 06/21/24 19:28 BMI result Body Mass Index 40.5 Gen: in no acute distress HEENT: sclera anicteric, moist mucus membranes Neck: supple Lungs: clear to auscultation bilaterally Heart: regular rate and rhythm, no murmurs Abd: soft, non-tender, non-distended, obese : Caraballo with CBI running, pink urine Ext: no edema Skin: warm/well-perfused Neuro: alert and oriented x3, no focal findings Psych: appropriate affect Objective Data Active Medications Acetaminophen (Acetaminophen 325 Mg Tablet) 650 mg PO Q6H PRN PRN Reason: Pain, Mild 1-3,fever,headache Amlodipine Besylate (Amlodipine Besylate 5 Mg Tablet) 5 mg PO DAILY [facility]; Protocol Last Admin: 06/23/24 08:45 Dose: 5 mg Documented By: KARIME Calcium Carbonate (Calcium Carbonate 750 Mg Tab.Chew) 750 mg PO Q4H PRN PRN Reason: Heartburn Docusate Sodium (Docusate Sodium 100 Mg Capsule) 100 mg PO BID [facility] Last Admin: 06/23/24 08:45 Dose: 100 mg Documented By: KARIME Hydromorphone HCl (Hydromorphone Hcl 0.5 Mg/0.5 Ml Syringe) 0.5 mg IVPUSH Q3H PRN; Protocol PRN Reason: Pain, Severe (Pain Scale 7-10) Last Admin: 06/22/24 22:36 Dose: 0.5 mg Documented By: LUIS Magnesium Hydroxide (Milk Of Magnesia 30 Ml Oral.Susp) 30 ml PO DAILY PRN PRN Reason: Constipation Last Admin: 06/20/24 08:08 Dose: 30 ml Documented By: CARLOS Melatonin (Melatonin 3 Mg Tablet) 6 mg PO BEDTIME PRN PRN Reason: Insomnia Metoprolol Tartrate (Metoprolol Tartrate 50 Mg Tablet) 50 mg PO BID [facility]; Protocol Last Admin: 06/23/24 08:44 Dose: 50 mg Documented By: KARIME Naloxone HCl (Naloxone Hcl 0.4 Mg/Ml Vial) 0.04 mg IVPUSH Q5M PRN PRN Reason: Excessive sedation or RR < 8 Ondansetron HCl (Ondansetron Hcl 4 Mg/2 Ml Vial) 4 mg IVPUSH Q8H PRN PRN Reason: Nausea and Vomiting Last Admin: 06/19/24 08:54 Dose: 4 mg Documented By: CARLOS Oxycodone HCl (Oxycodone Hcl Immed Release 5 Mg Tablet) 5 mg PO Q6H PRN PRN Reason: Pain, Moderate(Pain Scale 4-6) Last Admin: 06/18/24 23:36 Dose: 5 mg Documented By: RICARDO Sodium Biphosphate/Sodium Phosphate (Sodium Phosphate,[place]-Dibasic 133 Ml Enema) 133 ml CO ONCE PRN PRN Reason: Constipation Sodium Chloride (0.9 % Sodium Chloride Flush 3 Ml Syringe) 3 ml IVFLUSH QSHIFT [facility] Last Admin: 06/23/24 08:46 Dose: Not Given Documented By: KARIME Non-Admin Reason: IV Running Tamsulosin HCl (Tamsulosin Hcl 0.4 Mg Capsule) 0.8 mg PO DAILY [facility] Last Admin: 06/23/24 08:44 Dose: 0.8 mg Documented By: KARIME Labs 06/23/24 09:10 06/22/24 09:13 Labs: Laboratory Results - last 24 hr 06/22/24 06/23/24 09:13 09:10 MCV 85.1 MCH 28.4 MCHC 33.3 RDW 13.2 Plt Count 232 D MPV 9.8 Absolute Nucleated RBC 0.000 Nucleated RBC % (auto) 0.0 Anion Gap 14 Estim Creat Clear Calc 35.6 Estimated GFR 31 Random Glucose 106 Estimat Average Glucose 131 Hemoglobin A1c % 6.2 H Calcium 9.2 Assessment and Plan (1) Left ureteral stone: Status: Acute (2) BRIGIDA (acute kidney injury): Status: Acute Plan d6 for 68yo M with no primary care x15yr and no known chronic conditions presenting with N/V/abd pain, found to have BRIGIDA, ureterolithiasis with hydroureteronephrosis. BRIGIDA, FENa 2.7% - Postrenal obstruction vs underlying chronic kidney disease. Nephrology following. SCr not much improved. Continue to monitor. ureterolithiasis with hydroureteronephrosis hematuria - s/p cystoscopy/L retrograde, L ureteroscopy, laser lithotripsy, stone basketing, stent placement 06/21 [Dr Parish] - continue tamsulosin - continue CBI HTN, new dx - started amlodipine [increase dose today] and metoprolol tartrate morbid obesity - diet/exercise counseling VTE ppx - SCDs dispo - eventually home In my clinical judgment, the patient requires continued inpatient hospitalization for the following reasons: CBI, BRIGIDA Total time managing care of this patient today: 40 minutes. Quality Stroke Does the patient have a stroke diagnosis?: No VTE Prior VTE?: No VTE Risk Level:: Medical - moderate - high VTE Device Contraindication: N/A - Device Ordered VTE Drug Contraindication: Treatment Not Indicated
[2024-06-23 12:00] VITALS: BP 149/86; PULSE 78; RESP 16; TEMP 36.4; O2SAT 95
--- NOTE | 2024-06-23 15:32 | MHC.CM.PN ---
per rounds possible dc thurs plan is for home
[2024-06-23 16:00] VITALS: PULSE 76; RESP 14; TEMP 36.9; O2SAT 95
[2024-06-23 19:49] VITALS: BP 170/82; PULSE 90; RESP 18; TEMP 36.6; O2SAT 98
[2024-06-23] MEDS: 0.9 % Sodium Chloride Flush 3 ML SYRINGE IVFLUSH (20:18)
[2024-06-24] VITALS: BP 170/90; PULSE 70; RESP 18; TEMP 36.5; O2SAT 96
[2024-06-24 03:58] VITALS: BP 165/85; PULSE 75; RESP 18; TEMP 36.7; O2SAT 92
[2024-06-24 06:03] LABS: Hematocrit 41.3 % (42.0-52.0); Hemoglobin 13.9 g/dl (14.0-18.0); Mean Corpuscular HGB Conc 33.7 g/dl (31.0-36.0); Mean Corpuscular Hemoglobin 28.7 pg (27.0-33.0); Mean Corpuscular Volume 85.2 fL (80.0-98.0); Mean Platelet Volume 9.8 fL (9.4-12.4); Platelet Count 245 X10*3/uL (160-400); Red Blood Count 4.85 X10*6/uL (4.60-5.80); Red Cell Distribution Width 12.8 % (11.0-16.0); White Blood Count 5.8 X10*3/uL (4.8-10.8)
[2024-06-24 06:21] LABS: Anion Gap 13 (12-20); Blood Urea Nitrogen 19 mg/dL (9-16); Calcium 9.3 mg/dL (8.4-10.2); Carbon Dioxide 21 mmol/L (22-29); Chloride 109 mmol/L (96-108); Creatinine Clr Calc Pharmacy 65.7; Estimated Glomerular Filt Rate > 60; Glucose Random 112 mg/dL (60-115); Potassium 4.2 mmol/L (3.3-5.1); Sodium 139 mmol/L (135-145)
[2024-06-24 07:05] VITALS: BP 175/80; PULSE 83; RESP 16; TEMP 36.9; O2SAT 96
[2024-06-24] MEDS: Tamsulosin HCL 0.4 MG CAPSULE 0.8 MG PO (08:32)
[2024-06-24] MEDS: Docusate Sodium 100 MG CAPSULE PO (08:32)
[2024-06-24] MEDS: amLODIPine Besylate 10 MG TABLET PO (08:32)
[2024-06-24] MEDS: Metoprolol Tartrate 100 MG TABLET PO (08:32)
[2024-06-24] MEDS: 0.9 % Sodium Chloride Flush 3 ML SYRINGE IVFLUSH (08:35)
--- NOTE | 2024-06-24 10:43 | P.DS_ITS ---
DS: Providers Provider Date of Service: 06/24/24 Date of admission: 06/18/24 12:19 Date of discharge: 06/24/24 Primary care physician: None Physician Consults: 06/18/24 12:24 Consult to Urology Routine Consulting Provider: [facility] Reason for consultation: Left ureteral stone 06/21/24 08:48 Consult to Nephrology Routine Consulting Provider: [facility] Reason for consultation: Brigida , renal colic improved, htn not on meds Has provider been notified: No 06/22/24 21:04 Consult to Urology Routine Consulting Provider: [facility] Reason for consultation: hematuria DS: Diagnosis Discharge Diagnosis (1) Left ureteral stone: Status: Acute (2) BRIGIDA (acute kidney injury): Status: Acute (3) Ureteral obstruction, left: Status: Acute (4) Hydronephrosis: Status: Acute (5) Hypertension: Status: Acute (6) Morbid obesity: Status: Acute DS: Summary Hospital Course Hospital Course: From the history and physical by the admitting hospitalist, MANUELA Bliss, 06/18/24: Pt is a 68-year-old male without any significant PMH not on home medications who has not seen a PCP for 15+ years who presents to the ED for evaluation of LLQ abdominal pain radiating to back and associated N/V x4 days. Pt reports has also experienced reduced urine output in the does urine and also turned dark colored. Has not been eating or drinking much during this time due to pain and N/V. Has never experienced similar symptoms in the past. No fever, chills. Denies chest pain/pressure, palpitations. No shortness a breath or difficulty breathing. Pt has a remote smoking history though quit 40 years ago. Denies alcohol or illicit substance use. In the ED pt was tachycardic up to 120 and hypertensive to 166/67. Labs were significant for leukocytosis 12.7, BUN 25, creatinine 2.00 (baseline unknown), and T bili 1.5. Stable H&H. No significant electrolyte abnormalities. UA negative for UTI. CT?of abdomen and pelvis found nonobstructive 4 mm calculi in left ureter with mild hydroureteronephrosis. Pt was treated with IVF, ondansetron, morphine, ketorolac, and tamsulosin. Pt will be admitted to the hospital for BRIGIDA and intractable abd pain in the setting of nonobstructing ureterolithiasis with hydroureteronephrosis. 68yo M with no primary care x15yr and no known chronic conditions presenting with N/V/abd pain, found to have BRIGIDA, ureterolithiasis with hydroureteronephrosis. He was admitted to the medical-surgical unit. Hospital course by problem: ureterolithiasis with hydroureteronephrosis hematuria - Placed on tamsulosin. Urology consulted. Underwent cystoscopy/L retrograde, L ureteroscopy, laser lithotripsy, stone basketing, stent placement 06/21 [Dr Parish]. Due to urinary retention from clots postoperatively, underwent 24 hours of CBI with Caraballo. Voided successfully on own afterwards. Will follow up with Urology as outpatient. BRIGIDA - Nephrology consulted. BRIGIDA resolved after definitive relief of the urinary obstruction. HTN, new dx - Started amlodipine and metoprolol tartrate; will need to establish primary care as soon as possible. Time Attestation Discharge Coordination Time (in mins): 40 Quality: Safe Use of Opioids Does Pt have an Active Cancer Diagnosis on the Problem List?: No Quality: Stroke Does the patient have a stroke diagnosis?: No Physical Exam Vital Signs: Vital Signs: Last Vital Signs Temp 98.5 F 06/24/24 07:05 Pulse 83 06/24/24 07:05 Resp 16 06/24/24 07:05 BP 175/80 H 06/24/24 07:05 Pulse Ox 96 06/24/24 07:05 O2 Del Method Room Air 06/24/24 07:05 O2 Flow Rate 6 06/21/24 19:28 BMI result Body Mass Index 40.5 Gen: in no acute distress HEENT: sclera anicteric, moist mucus membranes Neck: supple Lungs: clear to auscultation bilaterally Heart: regular rate and rhythm, no murmurs Abd: soft, non-tender, non-distended, obese Ext: no edema Skin: warm/well-perfused Neuro: alert and oriented x3, no focal findings Psych: appropriate affect DS: Data Data Completed and Pending Completed studies during hospitalization [Text1]: Pending at discharge 06/21/24 19:16 Surgical [PTH] Routine Labs on day of discharge: Laboratory Results - last 24 hr 06/24/24 05:42 WBC 5.8 RBC 4.85 Hgb 13.9 L Hct 41.3 L MCV 85.2 MCH 28.7 MCHC 33.7 RDW 12.8 Plt Count 245 MPV 9.8 Absolute Nucleated RBC 0.000 Nucleated RBC % (auto) 0.0 Sodium 139 Potassium 4.2 Chloride 109 H Carbon Dioxide 21 L Anion Gap 13 BUN 19 H Creatinine 1.15 Estim Creat Clear Calc 65.7 Estimated GFR > 60 Random Glucose 112 Calcium 9.3 Discharge Plan Discharge Anticipated Discharge Date/Time: 06/22/24 09:38 Patient Disposition: Home, Self-Care Discharge Diagnosis: renal uteral stone ,brigida , leucocytosis ,elevated bp. Referrals: [facility] [Provider Group] - 1 Week Michelle Parish MD [Physician] - 2 Weeks [facility] [Primary Care Provider] - 1 Week Discharge Medications: New tamsulosin 0.4 mg capsule 0.4 mg PO BEDTIME 30 Days Qty: 30 1RF metoprolol tartrate 100 mg Tablet 100 mg PO BID Qty: 60 0RF Protocol: Hold for SBP/HR < HOLD for SBP < : 90 HOLD for HR < : 60 amlodipine 10 mg Tablet 10 mg PO DAILY Qty: 30 0RF Protocol: Hold for SBP< HOLD for SBP < : 90 Discharge Orders: Discharge Order (Routine); Ordered 06/24/24 Ordered By: Desiree Eisenberg Diet: Low salt diet Activity on Discharge: As tolerated Stand Alone Forms: Patient Portal Discharge page Print Language: Persian Care Plan Goals: establish primary care as soon as possible low-sodium Mediterranean diet take amlodipine 10 mg daily plus metoprolol tartrate 100 mg twice daily follow up with Urology at [facility] within 2 weeks take tamsulosin 0.4 mg daily avoid aspirin and NSAIDs drink plenty of water return to the hospital if any worsening pain or blood in urine, or unable to urinate Health Concerns: as above Plan of Treatment: encouraged for hydration , weight loss moniter bp and bmp outpatient Assessment: as above.
[2024-06-24 11:34] VITALS: BP 135/75; PULSE 75; RESP 17; TEMP 36.4; O2SAT 95
--- NOTE | 2024-06-24 12:42 | P.PNNP_ITS ---
Subjective Subjective Date of Service: 06/24/24 Interval history: Events noted. Urine output has not Physical Exam 2 Vital Signs: Vital Signs: Last Vital Signs Temp 97.5 F 06/24/24 11:34 Pulse 75 06/24/24 11:34 Resp 17 06/24/24 11:34 BP 135/75 06/24/24 11:34 Pulse Ox 95 06/24/24 11:34 O2 Del Method Room Air 06/24/24 11:34 O2 Flow Rate 6 06/21/24 19:28 BMI result Body Mass Index 40.5 Objective Data Labs 06/24/24 05:42 06/24/24 05:42 Labs: Laboratory Results - last 24 hr 06/24/24 05:42 WBC 5.8 RBC 4.85 Hgb 13.9 L Hct 41.3 L MCV 85.2 MCH 28.7 MCHC 33.7 RDW 12.8 Plt Count 245 MPV 9.8 Absolute Nucleated RBC 0.000 Nucleated RBC % (auto) 0.0 Sodium 139 Potassium 4.2 Chloride 109 H Carbon Dioxide 21 L Anion Gap 13 BUN 19 H Creatinine 1.15 Estim Creat Clear Calc 65.7 Estimated GFR > 60 Random Glucose 112 Calcium 9.3 Procedures Date of Service Date of Service: 06/24/24 Assessment & Plan Assessment and plan (1) BRIGIDA (acute kidney injury): Status: Acute Plan 68-year-old man with acute kidney injury in a setting of obstructive uropathy. He also also had hypertension. He is not on any medications for hypertension. unclear if he has underlying chronic kidney disease. Further clinical course we will determine this. Optimize blood pressure Avoid hypotension. Keep intake more than output Status post Urological intervention for hydronephrosis. Recent bump in creatinine most likely due to additional tubular injury. Renal function is improving Time Spent With Patient Time: Total time managing care of this patient today ____ minutes. Progress Note: Quality Stroke Does the patient have a stroke diagnosis?: No
--- NOTE | 2024-06-24 14:33 | MHC.CM.PN ---
DP: PT HAS BEEN MEDICALLY CLEARED FOR DC HOME, NO SERVICES. PT HAS OWN RIDE HOME.
[2024-06-24 21:53] LABS: Myeloperoxidase Antibody <1.0 AI; Proteinase 3 PR3 Antibodies <1.0 AI
[2024-06-26 18:29] LABS: Stone Source LEFT URETERAL STONE
== END 2024-06-24 14:45 | disposition home or self-care (01) | DRG 446 ==
LOC: HO.ED 10:35 → HO.EDOVER 12:43 → HO.S3 14:33
PROVIDERS: Internal Medicine; Internal Medicine Hypertension Specialist; Physician Assistant; Urology; Admitting Provider Student in an Organized Health Care Education/Training Program; Emergency Provider Emergency Medicine; Visit Provider Family Medicine
DX: N13.2 Hydronephrosis with renal and ureteral calculous obstruction (principal); N17.9 Acute kidney failure, unspecified; I10 Essential (primary) hypertension; E66.01 Morbid (severe) obesity due to excess calories; Z68.41 Body mass index [BMI] 40.0-44.9, adult; Z71.3 Dietary counseling and surveillance
CPT/HCPCS: 36415; 74176; 76770; 76775; 80048; 80053; 81001; 81003; 82043; 82365; 82570; 83036; 83690; 83735; 84156; 84300; 85025; 85027; 86021; 88300; 99285; C1726; C1758; C1769; C2617; J0690; J1171; J1885; J2270; J2405; J2704; J3010; J7120; Q9967

== ENCOUNTER → 2024-06-18 08:22 | Outpatient (BNV) | payer OTHER, SELFPAY | PROVIDERS: Emergency Provider Emergency Medicine; Visit Provider Radiology Diagnostic Radiology | DX: N20.1 Calculus of ureter (principal); K57.30 Diverticulosis of large intestine without perforation or abscess without bleeding | CPT/HCPCS: 74176 ==

== ENCOUNTER 2024-06-18 12:19 | Outpatient (BNV) | payer OTHER, SELFPAY | END 2024-06-20 18:42 | PROVIDERS: Admitting Provider Student in an Organized Health Care Education/Training Program; Emergency Provider Emergency Medicine; Visit Provider Radiology Neuroradiology | DX: N20.1 Calculus of ureter (principal) | CPT/HCPCS: 76775 ==

== ENCOUNTER → 2024-06-18 12:19 | Outpatient (BNV) | payer OTHER, SELFPAY | PROVIDERS: Admitting Provider Student in an Organized Health Care Education/Training Program; Emergency Provider Emergency Medicine; Visit Provider Internal Medicine Hypertension Specialist | DX: N17.9 Acute kidney failure, unspecified (principal) | CPT/HCPCS: 99223; 99232 ==

== ENCOUNTER → 2024-06-18 12:19 | Outpatient (BNV) | payer OTHER, SELFPAY | PROVIDERS: Admitting Provider Student in an Organized Health Care Education/Training Program; Emergency Provider Emergency Medicine; Visit Provider Student in an Organized Health Care Education/Training Program | DX: N20.1 Calculus of ureter (principal); N17.9 Acute kidney failure, unspecified | CPT/HCPCS: 99223; 99231 ==

== ENCOUNTER → 2024-06-18 12:19 | Outpatient (BNV) | payer OTHER, SELFPAY | PROVIDERS: Admitting Provider Student in an Organized Health Care Education/Training Program; Emergency Provider Emergency Medicine; Visit Provider Urology | DX: N20.1 Calculus of ureter (principal); N17.9 Acute kidney failure, unspecified; N13.30 Unspecified hydronephrosis | CPT/HCPCS: 99222; 99232 ==

== ENCOUNTER 2024-06-30 14:51 | Outpatient (AMB) | payer OTHER, SELFPAY ==
[2024-06-30 14:53] VITALS: BP 122/64; PULSE 85; TEMP 36.6; O2SAT 98; BMI 39.0
--- NOTE | 2024-06-30 14:53 | A.OFFPC_ITS ---
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 Accompanied by: Self / Same As Patient Allergies No Known Allergies Allergy (Verified 07/01/24 02:22) Medication List - Last Reconciled 07/01/24 by PAULA Mcdermott amlodipine 10 mg See Protocol PO DAILY metoprolol tartrate 100 mg See Protocol PO BID tamsulosin 0.4 mg PO BEDTIME 30 days Tobacco use date assessed: 06/30/24 Fall risk assessment: No Falls in past year Last assessed Fall Risk: 06/30/24 Dental Screening Dental Screen Date: 06/30/24 Did you have a dental visit in the last 12 months?: No Did you have a dental problem in the last 6 months where you did not have access to dental care?: No Was dental information given to patient?: No HPI establish care HPI Details Previous PCP: long time ago Last visit: 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 months for 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 Last PE: not in a while Specialist: urology OBGYN:n/a Past medical history: kidney stones s/p stent placement Medications:amlodipine 10 mg and metoprolol 100mg bid Family HX: not sure The patient is a 68-year-old male presenting to establish care No annual physical in a while-only 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 Past medical history of hypertension we will controlled on 2 blood pressure medications Recent left urethral stone with status post lithotripsy and stent placement, acute kidney injury and hydronephrosis Patient is denying chest pain, shortness of breath, dizziness, heart palpitation, He is denying abdominal pain or change in bowel habits Problem: htn: currently on amlodipine and metoprolol 100mg reports that he thinks that his blood pressure was elevated due to kidney stones he does not think that he needs medications discussed with patient to continue medication will monitor Labs ordered left kidney stone: s/p stone basket stent insertion the patient has f/u appt with urology on 07/01/24 denies pain, denies hematuria The patient wants a letter to return back to work he is having his stent removed tomorrow. I will wait until procedure before clearing him to go back work. 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[facility], [facility] Medical History (Updated 07/01/24 @ 02:49 by PAULA Mcdermott) Hypertension Surgical History No pertinent past surgical history Social History Household Members: Family and Children Housing: House Are you a primary child care sitter to a significant other at home: No Do you presently have visiting nurse or other home services: No Patient Tobacco Use Status: Never used Tobacco e-Cigarette/Vaping Use: Never Used service: No Cognitive needs: No Hearing needs: No Vision needs: No Questionnaire PHQ-9 Over the last 2 weeks, how often have you been bothered by any of the following problems? 1. Little interest or pleasure in doing things: nearly every day 2. Feeling down, depressed, or hopeless: not at all 3. Trouble falling or staying asleep, or sleeping too much: not at all 4. Feeling tired or having little energy: not at all 5. Poor appetite or overeating: not at all 6. Feeling bad about yourself - or that you are a failure or have let yourself or your family down: not at all 7. Trouble concentrating on things, such as reading the newspaper or watching television: not at all 8. Moving or speaking so slowly that other people could have noticed. Or the opposite - being so fidgety or restless that you have been moving around a lot more than usual: not at all 9. Thoughts that you would be better off or of hurting yourself in some way: not at all Total score: 3 Depression Screening Interpretation: Positive Depression Screening Done: Yes 14780 - PHQ-9 Billing: Yes Source: Developed by Drs. Santiago Baker, Rema Shah, Nigel Love and colleagues, with an educational marija from [employer]. Thrive Questionnaire Date Thrive assessed: 06/30/24 I am a: Patient What is your living situation today?: I have a steady place to live Within the past 12 months, did the food you bought not last and you didn't have the money to get more?: Never true Within the past 12 months, did you worry whether your food would run out before you got money to buy more?: Never true Do you have trouble paying for medicines?: No Do you have trouble getting transportation to medical appointments?: No Do you have trouble paying your heating and electricity bill?: No Do you have trouble taking care of your child, family member or friend?: No Do you have trouble with day-to-day activities such as bathing, preparing meals, shopping, managing finances, etc.?: No Are you currently unemployed and looking for a job?: No Are you interested in more education?: No Please select the resources that you would like help with: None Currently or been in a relationship where the following occur: I choose not to answer THRIVE Score: 0 AUDIT C Alcohol Use Questionnaire (AUDIT-C) 1. How often do you have a drink containing alcohol?: Never 3. How often do you have six or more drinks on one occasion?: Never Total Score: 0 Score Reviewed/Action Taken: Yes SUSAN-7 AMB Questionnaire SUSAN-7 Date SUSAN - 7 assessed: 06/30/24 Feeling nervous, anxious, or on edge: 0 = Not at all Not being able to stop or control worryin = Several days Worrying too much about different things: 0 = Not at all Trouble relaxin = Not at all Being so restless that it is hard to sit still: 0 = Not at all Becoming easily annoyed or irritable: 0 = Not at all Feeling afraid as if something awful might happen: 0 = Not at all Total SUSAN-7 score (0-4 normal; 5-9 mild; 10-14 moderate; 15-21 severe): 1 Source: Developed by Drs. Santiago Baker, Rema Shah, Niegl Love and colleagues, with an educational marija from [employer]. SUSAN-7 Assessment Billing SUSAN-7 Assessment Tool: SUSAN-7 Assessment 24992 Review of Systems Const Details: Denies chills, Denies fatigue, Denies fever(s), Denies headache(s) and Denies weakness HEENT Denies change in vision, Denies dizziness, Denies headache(s), Denies hearing loss, Denies nasal congestion, Denies sinus pain, Denies sinus pressure and Denies sore throat Card Denies chest pain, Denies lightheadedness, Denies dyspnea and Denies other (palpitations) Resp Denies cough, Denies dyspnea and Denies wheezing GI Denies abdominal pain, Denies melena, Denies hematochezia, Denies change in bowel habits, Denies dyspepsia and Denies nausea Denies hematuria and Denies dysuria Musc Denies abnormal gait, Denies myalgias, Denies arthralgias, Denies numbness and Denies tingling Skin/Breast Denies rash, Denies unusual bruising and Denies wounds Neuro Denies abnormal gait, Denies dizziness, Denies headache(s), Denies memory loss, Denies numbness, Denies Sensory deficit (Neuro), Denies tingling and Denies weakness Psych Denies anxiety, Denies depression and Denies memory loss Endo Denies cold intolerance, Denies fatigue, Denies heat intolerance, Denies polydipsia and Denies polyuria Mike/Lymph Denies easy bleeding and Denies easy bruising Aller/Immun Denies wheezing Physical exam (Primary Care) Vital Signs: Last Vital Signs Temp 98 F 06/30/24 14:53 Pulse 85 06/30/24 14:53 BP 122/64 06/30/24 14:53 Pulse Ox 98 06/30/24 14:53 Oxygen Delivery Method Room Air 06/30/24 14:53 BMI result Body Mass Index 39.0 Tobacco/Smoking Status: Tobacco use Status Tobacco use date assessed 06/30/24 06/30/24 15:01 Patient Tobacco Use Status Never used Tobacco 06/30/24 15:01 e-Cigarette/Vaping Use Never Used 06/30/24 15:01 PHQ-9: PHQ-9 Score PHQ-9: Total score 3 07/01/24 02:26 Depression Screening Interpretation: Positive Thrive Assessment: Date of Thrive Assessment Date Thrive assessed 06/30/24 06/30/24 15:01 Currently or been in a relationship where the following occur: I choose not to answer Const Other: General: no acute distress, well developed, alert and awake Nutritional Appearance: well nourished Orientation/consciousness: patient oriented x3 HENMT Head: Yes normocephalic and Yes atraumatic Ears: hearing grossly normal bilaterally and TM's normal bilaterally General nose exam: Normal external nose present and Normal nares present Mouth: Normal oral and palatal mucosa present and moist mucous membranes Eyes Pupils: Equal, round and reactive pupils present and Pupil accommodation reflex normal EOM: EOMs intact bilaterally Neck Neck: Yes normal visual inspection, Yes no lymphadenopathy and Yes trachea midline Thyroid: Thyroid normal Carotids: no bruits Lymphatic: no lymphadenopathy noted Chest Chest palpation & inspection: normal inspection of the chest Resp Effort & Inspection: normal respiratory effort Auscultation: clear to auscultation bilaterally Cardio Rate: regular rate Rhythm: regular rhythm Heart sounds: S1 normal heart sound present, S2 normal heart sound present, no gallops, no murmurs and no rubs GI Palpation (GI): Abdomen large, rounded, protuberant, soft and nontender to palpation Auscultation: normal bowel sounds General: Yes no CVA tenderness Back/Spine/Pelvis Back: no CVA tenderness Cervical Spine: cervical ROM normal and No Cervical spine tenderness Thoracic/Lumbar Spine: thoraco-lumbar ROM normal, No pain with thoraco-lumbar ROM, No thoracic spinal tenderness and No lumbar spinal tenderness Skin General: warm and dry. Normal skin color. Normal skin turgor Lesions: no lesions Nails: normal Neuro General: patient oriented x3, gait normal Cranial nerves: Yes Equal, round and reactive pupils present Cognition (Neuro): normal cognition Gait exam (Neuro): Normal gait present Extrem General: Yes normal to inspection, No edema and No calf tenderness Psych Appearance: grossly normal Affect: normal affect Attitude: cooperative Thought process: Normal thought process present Coding Level of Care Code New Pt Level 4 (10235) Diagnoses Hypertension, unspecified type I10 Hypertension type: unspecified Left ureteral stone N20.1 BRIGIDA (acute kidney injury) N17.9 Hydronephrosis, unspecified hydronephrosis type N13.30 Hydronephrosis type: unspecified Additional Codes SUSAN-7 Assessment Billing - SUSAN-7 Assessment Tool: SUSAN-7 Assessment 09527 ([id number]) PHQ-9 - 67499 - PHQ-9 Billing: Yes ([id number]) Time Spent (min) 35 Assessment & Plan Assessment & Plan (1) Hypertension: Code(s): I10 - Essential (primary) hypertension Category: Medical Qualifiers: Hypertension type: unspecified Qualified Code(s): I10 - Essential (primary) hypertension Plan: reinforced low salt diet/activity as tolerated continue amlodipine 10 mg daily and metoprolol 100mg BID (2) Left ureteral stone: Code(s): N20.1 - Calculus of ureter Category: Medical Plan: s/p stone basket stent insertion follow up with urology as scheduled - is scheduled to have stent removal tomorrow (3) BRIGIDA (acute kidney injury): Code(s): N17.9 - Acute kidney failure, unspecified Category: Medical Plan: acute kidney injury in the setting of obstructive uropathy s/p stent placement and lithotripsy follow up with nephrology as scheduled (4) Hydronephrosis: Code(s): N13.30 - Unspecified hydronephrosis Category: Medical Qualifiers: Hydronephrosis type: unspecified Qualified Code(s): N13.30 - Unspecified hydronephrosis Plan: s/p stent placement follow with urology as scheduled Plan labs ordered and the patient to return for an annual physical Orders: Orders UA CC w/rflx Micro + Cult 06/30/24 E66. - Morbid (severe) obesity due to excess calories, I10 - Essential (primary) hypertension, Z00.00 - Encounter for general adult medical examination without abnormal findings PSA,Total (Free>4and<10) 06/30/24 E66. - Morbid (severe) obesity due to excess calories, I10 - Essential (primary) hypertension, Z00.00 - Encounter for general adult medical examination without abnormal findings Complete Blood Count Auto Diff 06/30/246. - Morbid (severe) obesity due to excess calories, I10 - Essential (primary) hypertension, Z00.00 - Encounter for general adult medical examination without abnormal findings Comprehensive [place]. Panel Fast 06/30/24 E66. - Morbid (severe) obesity due to excess calories, I10 - Essential (primary) hypertension, Z00.00 - Encounter for general adult medical examination without abnormal findings Lipid Panel 06/30/24 E66. - Morbid (severe) obesity due to excess calories, I10 - Essential (primary) hypertension, Z00.00 - Encounter for general adult medical examination without abnormal findings Glucose Fasting 06/30/24 E66. - Morbid (severe) obesity due to excess calories, I10 - Essential (primary) hypertension, Z00.00 - Encounter for general adult medical examination without abnormal findings TSH reflex Free T4 06/30/24 E66.01 - Morbid (severe) obesity due to excess calories, I10 - Essential (primary) hypertension, Z00.00 - Encounter for general adult medical examination without abnormal findings Vitamin D 25-OH Total 06/30/24 E66.01 - Morbid (severe) obesity due to excess calories, I10 - Essential (primary) hypertension, Z00.00 - Encounter for general adult medical examination without abnormal findings
== END 2024-06-30 15:36 | disposition home or self-care (01) ==
DX: I10 Essential (primary) hypertension (principal); N20.1 Calculus of ureter; N17.9 Acute kidney failure, unspecified; N13.30 Unspecified hydronephrosis

== ENCOUNTER → 2024-06-30 14:51 | Outpatient (BNVA) | payer OTHER, SELFPAY | DX: I10 Essential (primary) hypertension (principal); N17.9 Acute kidney failure, unspecified; Z79.899 Other long term (current) drug therapy; Z87.442 Personal history of urinary calculi; Z96.0 Presence of urogenital implants | CPT/HCPCS: 96127 ==

== ENCOUNTER 2024-07-01 13:28 | Outpatient (AMB) | payer OTHER, SELFPAY ==
--- NOTE | 2024-07-01 13:38 | A.OFFVIS_ITS ---
Intake Visit Reasons: Stent Removal Intake Note: Patient is Present for Cystoscopy/Stent Removal Urology Med: Tamsulosin Antibiotic Allergy: None Blood Thinner: None URO- G Disposable Cystoscope lot: exp: Allergies No Known Allergies Allergy (Verified 07/28/24 09:55) Medication List - Last Reconciled 07/01/24 by Michelle Parish MD amlodipine 10 mg See Protocol PO DAILY metoprolol tartrate 100 mg See Protocol PO BID tamsulosin 0.4 mg PO BEDTIME 30 days HPI Comments Details: s/p Cystoscopy, left retrograde, left ureteroscopy laser lithotripsy stone basket stent insertion, 6 Salv[place] by 26 cm on 06/21/24. Here for stent removal. Left ureteral stent removed today. [facility] Medical History (Updated 07/28/24 @ 12:56 by PAULA Mcdermott) Hypertension Surgical History No pertinent past surgical history Social History Household Members: Family and Children Housing: House Are you a primary long term care pharmacist to a significant other at home: No Do you presently have visiting nurse or other home services: No Patient Tobacco Use Status: Never used Tobacco e-Cigarette/Vaping Use: Never Used service: No Cognitive needs: No Hearing needs: No Vision needs: No Office Procedures Cystoscopy Consent Discussed risk and benefit or proposed procedure with the patient. Information consent for procedure given to the patient. Discussed technical aspects, risks, benefits and alternatives in full. Addressed all of the patient's questions and concerns regarding the procedure. The patient demonstrated knowledge and understanding. They wish to proceed with this procedure. Preparation The patient was prepped in the usual manner. A clin asst was present and in the room. Genitalia was prepped with betadine solution in a sterile manner. Lidocaine Jelly 2% was placed into the urethra and 16Fr flexible Olympus cystoscope was inserted into the meatus after adequate lubrication. Procedure Time out per protocol performed. Bladder Inspection Cystoscopy findings: mild edema ureteral orifice which is expected, distal end of ureteral stent visualized. The grasping forceps were used and the stent was removed without difficulty. 43558-[id number] with stent removal DISPOSABLE SCOPE URO-G FLEXIBLE SCOPE Procedure code (CPT) selection complete Office Meds lidocaine HCl 2 % mucosal jelly in applicator Performing Provider: Michelle Parish MD [facility] Documented (not given) by: Michelle Parish MD on 07/01/24 15:19 Dose Route Admin Location Dispensed Lot Number Expiration Date [facility] Land Development Manager 10 mL intra-urethral mL ciprofloxacin HCl 500 mg tablet Performing Provider: Michelle Parish MD [facility] Administered by: Michelle Parish MD on 07/01/24 15:19 Dose Route Admin Location Dispensed Lot Number Expiration Date [place] [employer] Development [employer] 500 mg PO 500 tab Results AMB Urinalysis, Automated UA Leukoctes 15 Ryder/uL Last Edit by Angeli Beebe [facility] on 07/01/24 14:20 UA Nitrite Negative Last Edit by Angeli Beebe [facility] on 07/01/24 14:20 UA Urobilinogen 0.2 mg/dL Last Edit by Angeli Beeeb [facility] on 07/01/24 14:2 0 UA Protein 30 mg/dL Last Edit by Angeli Beebe A on 07/01/24 14:20 UA pH 5.5 Last Edit by Angeli Beebe [facility] on 07/01/24 14:20 UA Blood 200 Med/uL Last Edit by Angeli Beebe [facility] on 07/01/24 14:20 UA Specific [place] 1.020 Last Edit by Angeli Beebe [facility] on 07/01/24 14: 20 UA Ketone Negative Last Edit by Angeli Beebe [facility] on 07/01/24 14:20 UA Bilirubin 0 mg/dL Last Edit by Angeli Beebe A on 07/01/24 14:20 UA Glucose 0 mg/dL Last Edit by Angeli Beebe [facility] on 07/01/24 14:20 Results Reviewed Results Reviewed: Laboratory Last Values Urine pH (Auto) 5.5 07/01/24 14:19 Specific [place] (Auto) 1.020 07/01/24 14:19 Urine Protein (Auto) 30 mg/dL 07/01/24 14:19 Glucose (UA)(Auto) 0 mg/dL 07/01/24 14:19 Urine Ketones (Auto) Negative 07/01/24 14:19 Urine Blood (Auto) 200 Med/uL 07/01/24 14:19 Urine Nitrite (Auto) Negative 07/01/24 14:19 Urine Bilirubin (Auto) 0 mg/dL 07/01/24 14:19 Urine Urobilinogen (Auto) 0.2 mg/dL 07/01/24 14:19 Leukocyte Esterase (Auto) 15 Ryder/uL 07/01/24 14:19 Assessment & Plan Assessment & Plan (1) Hydronephrosis: Code(s): N13.30 - Unspecified hydronephrosis Category: Medical Qualifiers: Hydronephrosis type: unspecified Qualified Code(s): N13.30 - Unspecified hydronephrosis (2) Left ureteral stone: Code(s): N20.1 - Calculus of ureter Category: Medical Plan left stent removal. cont to monitor, renal US Orders: Orders AMB Urinalysis Automated 07/01/24 Z13.9 - Encounter for screening, unspecified, N13.30 - Unspecified hydronephrosis AMB Cystoscopy 07/01/24 N20.1 - Calculus of ureter, N13.30 - Unspecified hydronephrosis Medications: New lidocaine HCl 2% 10 mL intra-urethral ONCE 10 mL 0RF N20.1 - Calculus of ureter, N13.30 - Unspecified hydronephrosis ciprofloxacin HCl 500 mg PO ONCE 1 tab 0RF N20.1 - Calculus of ureter, N13.30 - Unspecified hydronephrosis Refilled tamsulosin 0.4 mg PO BEDTIME 90 caps 3RF 30 days Patient Instructions: The patient had an opportunity to ask questions regarding treatment plan. The patient expressed understanding and agreement with the above treatment plan. The patient is aware they should contact our office by phone for worsening of their current condition or the appearance of new symptoms. Compliance is encouraged with any medications and followup testing that is ordered. It is a privilege to be allowed the opportunity to participate in the urologic care of your patient. If you have any questions or concerns regarding treatment for the above conditions please do not hesitate to contact me. The office telephone contact is [phone]. This note is constructed in part using voice recognition software. While every effort has been made to ensure accuracy hand stemmer errors may have been included. Yours sincerely, Corlis Guerra-Zelalem, MD Coding Level of Care Code Procedure Only Diagnoses Hydronephrosis, unspecified hydronephrosis type N13.30 Hydronephrosis type: unspecified Left ureteral stone N20.1 CPT Codes Cystoscopy - CPT: 90044-Ynarfczslx with stent removal ([id number])
== END 2024-07-01 15:30 | disposition home or self-care (01) ==
LOC: HO.HUSH 13:28
PROVIDERS: Visit Provider Urology
DX: N20.1 Calculus of ureter (principal); N13.30 Unspecified hydronephrosis
CPT/HCPCS: 52310

== ENCOUNTER → 2024-07-01 13:28 | Outpatient (BNVA) | payer OTHER, SELFPAY | PROVIDERS: Visit Provider Urology | DX: Z48.816 Encounter for surgical aftercare following surgery on the genitourinary system (principal) | CPT/HCPCS: 52310; 81003 ==

== ENCOUNTER 2024-07-21 07:05 | Outpatient (REF) | payer OTHER, SELFPAY ==
[2024-07-21 07:22] LABS: MANUAL DIFF FLAG NO
[2024-07-21 07:36] LABS: Basophils Absolute Auto 0.1 X10*3/uL (0.0-0.2); Basophils Percent Auto 1.1 % (0-2); Eosinophils Absolute Auto 0.2 X10*3/uL (0.0-0.4); Eosinophils Percent Auto 3.3 % (0-4); Hematocrit 39.6 % (42.0-52.0); Hemoglobin 13.4 g/dl (14.0-18.0); Imm Gran Abs Auto 0.02 X10*3/uL (0.00-0.03); Imm Gran Pct Auto 0.4 % (0.0-0.4); Lymphocytes Absolute Auto 1.6 X10*3/uL (1.2-4.9); Lymphocytes Percent Auto 29.7 % (20-40); Mean Corpuscular HGB Conc 33.8 g/dl (31.0-36.0); Mean Corpuscular Hemoglobin 28.3 pg (27.0-33.0); Mean Corpuscular Volume 83.7 fL (80.0-98.0); Mean Platelet Volume 10.5 fL (9.4-12.4); Monocytes Absolute Auto 0.5 X10*3/uL (0.1-1.2); Neutrophils Absolute Auto 3.1 x10*3/uL (2.0-8.3); Neutrophils Percent Auto 56.5 % (45-73); Platelet Count 208 X10*3/uL (160-400); Red Blood Count 4.73 X10*6/uL (4.60-5.80); Red Cell Distribution Width 13.2 % (11.0-16.0); White Blood Count 5.5 X10*3/uL (4.8-10.8)
[2024-07-21 07:41] LABS: Color Urine Yellow; Glucose Urine UA Negative (Negative); Leukocyte Esterase Urine Negative (Negative); Nitrite Urine Negative (Negative); PH 5.5 (5.0-9.0); UMIC TRIGGER UACC YES; Urine Blood Negative (Negative); Urine Ketones Negative (Negative); Urine Protein 100 (2+) mg/dL (Neg-Trace)
[2024-07-21 07:42] LABS: Appearance Urine Clear
[2024-07-21 07:49] LABS: Bacteria Urine None Seen (None Seen); RBC Urine 0-2 /HPF (0-2); Squamous Epithelial Cell Urine 0-2 /HPF (0-2); WBC Urine 0-5 /HPF (0-5)
[2024-07-21 08:16] LABS: Alanine Aminotransferase 42 U/L (0-40); Albumin Level 4.1 g/dL (3.5-5.0); Alkaline Phosphatase 77 U/L (39-117); Anion Gap 13 (12-20); Aspartate Amino Transferase 32 U/L (5-37); Bilirubin Total 0.4 mg/dL (0.0-1.0); Blood Urea Nitrogen 17 mg/dL (9-16); Calcium 9.1 mg/dL (8.4-10.2); Carbon Dioxide 21 mmol/L (22-29); Chloride 109 mmol/L (96-108); Cholesterol 158 mg/dL (<200); Estimated Glomerular Filt Rate > 60; Glucose Fasting 124 mg/dL (60-99); HDL Cholesterol 39 mg/dL (>40); LDL Cholesterol Calculated 92 mg/dL (<100); Potassium 4.4 mmol/L (3.3-5.1); Sodium 139 mmol/L (135-145); Total Protein 7.9 g/dL (6.5-8.0); Triglycerides 139 mg/dL (<150)
[2024-07-21 08:29] LABS: PSA,Total (Free>4and<10) 6.29 ng/mL (0.00-4.00)
[2024-07-21 08:39] LABS: TSH reflex Free T4 3.73 uIU/mL (0.32-4.0); Vitamin D 25-OH Total 11.8 ng/mL (>30)
[2024-07-23 13:18] LABS: Free Prostate Spec Ag 1.2 ng/mL; Percent Free Prostate Spec Ag 21 % (calc) (>25); Prostate Specific Ag Total 5.8 ng/mL (< OR = 4.0)
== END 2024-07-21 07:06 | disposition home or self-care (01) ==
LOC: HO.LAB 07:05
DX: Z00.00 Encounter for general adult medical examination without abnormal findings (principal); E66.01 Morbid (severe) obesity due to excess calories; I10 Essential (primary) hypertension; Z12.5 Encounter for screening for malignant neoplasm of prostate
CPT/HCPCS: 36415; 80053; 80061; 81001; 82306; 84153; 84154; 84443; 85025

== ENCOUNTER 2024-07-28 09:06 | Outpatient (AMB) | payer OTHER, SELFPAY ==
[2024-07-28 09:33] VITALS: BP 154/88; PULSE 82; RESP 16; TEMP 36.2; O2SAT 99; BMI 39.4
--- NOTE | 2024-07-28 09:33 | A.OFFPC_ITS ---
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 Accompanied by: Self / Same As Patient Allergies No Known Allergies Allergy (Verified 07/28/24 09:55) Medication List - Last Reconciled 07/28/24 by PAULA Mcdermott amlodipine 10 mg See Protocol PO DAILY metoprolol tartrate 100 mg See Protocol PO BID tamsulosin 0.4 mg PO BEDTIME 30 days Tobacco use date assessed: 06/30/24 Fall risk assessment: No Falls in past year Last assessed Fall Risk: 07/28/24 Dental Screening Dental Screen Date: 06/30/24 HPI Annual Exam HPI Details Dentist: multiple years-recommend Eye: 2 years ago before Kelvinjen lynn told her to see an ophthmalogiist Snellen: Right: Left: Corrected vision: glasses STI screening: Colonoscopy: wait for vacation-will refer Pap Smer:n/a PHQ-9: Flu: up to date COVID: up t date Tdap: due-reports next time Diet: regualar diet Exercise: walking The patient is a 69-year-old male was presenting for annual physical His blood pressure is noted to be elevated today Reports that he ran out of his medication and has been waiting for the pharmacy to get back to him Discussed with the patient that if he has referral issues with this medication it should contact the office next time He denies shortness of breath, chest pain, heart palpitation, Reports that when his blood pressure is high he at times going to headache He denies abdominal pain or change in bowel habits Reports that his urinary symptoms has been much better. He continues on tamsulosin [facility] Medical History (Updated 07/28/24 @ 12:56 by PAULA Mcdermott) Hypertension Surgical History No pertinent past surgical history Social History Household Members: Family and Children Housing: House Are you a primary animal care supervisor to a significant other at home: No Do you presently have visiting nurse or other home services: No Patient Tobacco Use Status: Never used Tobacco e-Cigarette/Vaping Use: Never Used service: No Cognitive needs: No Hearing needs: No Vision needs: No Questionnaire Thrive Questionnaire Date Thrive assessed: 06/30/24 I am a: Patient What is your living situation today?: I have a steady place to live Within the past 12 months, did the food you bought not last and you didn't have the money to get more?: Never true Within the past 12 months, did you worry whether your food would run out before you got money to buy more?: Never true Do you have trouble paying for medicines?: No Do you have trouble getting transportation to medical appointments?: No Do you have trouble paying your heating and electricity bill?: No Do you have trouble taking care of your child, family member or friend?: No Do you have trouble with day-to-day activities such as bathing, preparing meals, shopping, managing finances, etc.?: No Are you currently unemployed and looking for a job?: No Are you interested in more education?: No Please select the resources that you would like help with: None Currently or been in a relationship where the following occur: I choose not to answer THRIVE Score: 0 AUDIT C Alcohol Use Questionnaire (AUDIT-C) 1. How often do you have a drink containing alcohol?: Never 3. How often do you have six or more drinks on one occasion?: Never Total Score: 0 Score Reviewed/Action Taken: Yes SUSAN-7 AMB Questionnaire SUSAN-7 Date SUSAN - 7 assessed: 06/30/24 Source: Developed by Drs. Santiago Baker, Rema Shah, Nigel Love and colleagues, with an educational marija from [employer]. Physical exam (Primary Care) Vital Signs: Last Vital Signs Temp 97.1 F 07/28/24 09:33 Pulse 82 07/28/24 09:33 Resp 16 07/28/24 09:33 BP 154/88 H 07/28/24 09:33 Pulse Ox 99 07/28/24 09:33 Oxygen Delivery Method Room Air 07/28/24 09:33 BMI result Body Mass Index 39.4 Tobacco/Smoking Status: Tobacco use Status Tobacco use date assessed 06/30/24 07/28/24 09:35 Patient Tobacco Use Status Never used Tobacco 07/28/24 09:35 e-Cigarette/Vaping Use Never Used 07/28/24 09:35 Thrive Assessment: Date of Thrive Assessment Date Thrive assessed 06/30/24 07/28/24 09:35 Currently or been in a relationship where the following occur: I choose not to answer Coding Level of Care Code Est Pt Prev Care >65y(99302) Diagnoses Annual physical exam Z00.00 Hypertension, unspecified type I10 Hypertension type: unspecified BRIGIDA (acute kidney injury) N17.9 Elevated PSA R97.20 Decreased hearing of left ear H91.92 Morbid obesity E66.01 Left ureteral stone N20.1 Hydronephrosis, unspecified hydronephrosis type N13.30 Hydronephrosis type: unspecified Prediabetes R73.03 Assessment & Plan Assessment & Plan (1) Annual physical exam: Code(s): Z00.00 - Encounter for general adult medical examination without abnormal findings Category: Medical Plan: The patient is update on most immunization. He declines getting the tetanus shot today. The patient has not have a colonoscopy done. Discussed with patient if he would like an referral and the patient reports that he is already 69 y/o and he his not sure if he has 10 more years, so he does not think that it is needed at this time. Reviewed blood work with the patient. (2) Hypertension: Code(s): I10 - Essential (primary) hypertension Category: Medical Qualifiers: Hypertension type: unspecified Qualified Code(s): I10 - Essential (primary) hypertension Plan: The patient bp was elevated in office. The reports that he ran out of his medication and been for the pharmacy to call him back because the pharmacy told him that there weren't any more refills Discussed with the patient to contact the office if he is having trouble getting his medications. The patient medications were refilled reinforced low salt diet/activity as tolerated continue amlodipine 10 mg daily and metoprolol 100mg BID (3) BRIGIDA (acute kidney injury): Code(s): N17.9 - Acute kidney failure, unspecified Category: Medical Plan: acute kidney injury in the setting of obstructive uropathy s/p stent placement and lithotripsy The stent to was removed on 07/01/[address] Lozano (urology) (4) Elevated PSA: Code(s): R97.20 - Elevated prostate specific antigen [PSA] Category: Medical Plan: The patient PSA was elevated. Discussed with patient in detail about the restrictions before getting PSA levels checked. 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 Encouraged to eat fruits/vegetables, protein- fish/baked chicken, and to avoid salty/fried foods, sweets, caffeine and carbohydrates. Encouraged to increase water intake 6-8 glasses a day (7) Left ureteral stone: Code(s): N20.1 - Calculus of ureter Category: Medical Plan: s/p stone basket stent insertion follow up with urology as scheduled - is scheduled to have stent removal tomorrow (8) Hydronephrosis: Code(s): N13.30 - Unspecified hydronephrosis Category: Medical Qualifiers: Hydronephrosis type: unspecified Qualified Code(s): N13.30 - Unspecified hydronephrosis Plan: s/p stent placement The the patient's stent was removed on 07/01/2024 Follow up with Urology as scheduled (9) Prediabetes: Code(s): R73.03 - Prediabetes Category: Medical Plan: AIC 6.2% and fasting glucose 124. Reinforced low sugar/carbohydrate and activity as tolerated We will recheck labs in 3 months Plan Patient to return in 3 months follow up evaluation for hypertension/prediabetes Orders: Orders Complete Blood Count Auto Diff 3 Months E66.01 - Morbid (severe) obesity due to excess calories, I10 - Essential (primary) hypertension, N13.30 - Unspecified hydronephrosis, N13.5 - Crossing vessel and stricture of ureter without hydronephrosis, N17.9 - Acute kidney failure, unspecified Vitamin D 25-OH Total 3 Months E66.01 - Morbid (severe) obesity due to excess calories, I10 - Essential (primary) hypertension, N13.30 - Unspecified hydronephrosis, N13.5 - Crossing vessel and stricture of ureter without hydronephrosis, N17.9 - Acute kidney failure, unspecified Lipid Panel 3 Months E66.01 - Morbid (severe) obesity due to excess calories, I10 - Essential (primary) hypertension, N13.30 - Unspecified hydronephrosis, N13.5 - Crossing vessel and stricture of ureter without hydronephrosis, N17.9 - Acute kidney failure, unspecified Hemoglobin A1c 3 Months R73.03 - Prediabetes Comprehensive Ariel. Panel Fast 3 Months E66.01 - Morbid (severe) obesity due to excess calories, I10 - Essential (primary) hypertension, N13.30 - Unspecified hydronephrosis, N13.5 - Crossing vessel and stricture of ureter without hydronephrosis, N17.9 - Acute kidney failure, unspecified TSH reflex Free T4 3 Months E66.01 - Morbid (severe) obesity due to excess calories, I10 - Essential (primary) hypertension, N13.30 - Unspecified hydronephrosis, N13.5 - Crossing vessel and stricture of ureter without hydronephrosis, N17.9 - Acute kidney failure, unspecified PSA,Total (Free>4and<10) Today R97.20 - Elevated prostate specific antigen [PSA] Referrals Speech and Hearing Referral H91.92 - Unspecified hearing loss, left ear Medications: Refilled amlodipine 10 mg See Protocol PO DAILY 30 tabs 0RF metoprolol tartrate 100 mg See Protocol PO BID 60 tabs 0RF tamsulosin 0.4 mg PO BEDTIME 30 days 90 caps 3RF
== END 2024-07-28 10:31 | disposition home or self-care (01) ==
DX: Z00.00 Encounter for general adult medical examination without abnormal findings (principal); N17.9 Acute kidney failure, unspecified; E66.01 Morbid (severe) obesity due to excess calories; Z68.39 Body mass index [BMI] 39.0-39.9, adult; I10 Essential (primary) hypertension; R97.20 Elevated prostate specific antigen [PSA]; H91.92 Unspecified hearing loss, left ear; N20.1 Calculus of ureter; N13.30 Unspecified hydronephrosis; R73.03 Prediabetes

== ENCOUNTER 2024-08-07 07:20 | Outpatient (REF) | payer OTHER, SELFPAY ==
[2024-08-07 07:38] LABS: MANUAL DIFF FLAG NO
[2024-08-07 08:32] LABS: Basophils Percent Auto 0.7 % (0-2); Eosinophils Absolute Auto 0.1 X10*3/uL (0.0-0.4); Eosinophils Percent Auto 2.5 % (0-4); Hematocrit 40.6 % (42.0-52.0); Hemoglobin 13.6 g/dl (14.0-18.0); Imm Gran Abs Auto 0.02 X10*3/uL (0.00-0.03); Imm Gran Pct Auto 0.4 % (0.0-0.4); Lymphocytes Absolute Auto 1.4 X10*3/uL (1.2-4.9); Lymphocytes Percent Auto 25.4 % (20-40); Mean Corpuscular HGB Conc 33.5 g/dl (31.0-36.0); Mean Corpuscular Hemoglobin 27.9 pg (27.0-33.0); Mean Corpuscular Volume 83.4 fL (80.0-98.0); Mean Platelet Volume 10.8 fL (9.4-12.4); Monocytes Absolute Auto 0.5 X10*3/uL (0.1-1.2); Monocytes Percent Auto 7.9 % (2-11); Neutrophils Absolute Auto 3.6 x10*3/uL (2.0-8.3); Neutrophils Percent Auto 63.1 % (45-73); Platelet Count 226 X10*3/uL (160-400); Red Blood Count 4.87 X10*6/uL (4.60-5.80); Red Cell Distribution Width 13.6 % (11.0-16.0); White Blood Count 5.7 X10*3/uL (4.8-10.8)
[2024-08-07 08:34] LABS: Appearance Urine Clear; Color Urine Yellow; Glucose Urine UA Negative (Negative); Leukocyte Esterase Urine Negative (Negative); Nitrite Urine Negative (Negative); PH 6.5 (5.0-9.0); Specific Gravity - Urine 1.015 (1.005-1.025); Urine Blood Negative (Negative); Urine Ketones Negative (Negative); Urine Protein Trace mg/dL (Neg-Trace)
[2024-08-07 08:53] LABS: Estimated Average Glucose 128 mg/dL; Hemoglobin A1C 154.0312 umol/L; Hemoglobin A1c % 6.1 % (<6.0); Total Hemoglobin (HGBA1C) 3557.5339 umol/L
[2024-08-07 09:08] LABS: Alanine Aminotransferase 29 U/L (0-40); Alkaline Phosphatase 81 U/L (39-117); Anion Gap 14 (12-20); Aspartate Amino Transferase 26 U/L (5-37); Bilirubin Total 0.6 mg/dL (0.0-1.0); Blood Urea Nitrogen 17 mg/dL (9-16); Calcium 8.8 mg/dL (8.4-10.2); Carbon Dioxide 22 mmol/L (22-29); Chloride 107 mmol/L (96-108); Cholesterol 171 mg/dL (<200); Estimated Glomerular Filt Rate > 60; Glucose Fasting 133 mg/dL (60-99); HDL Cholesterol 38 mg/dL (>40); LDL Cholesterol Calculated 108 mg/dL (<100); Potassium 4.5 mmol/L (3.3-5.1); Sodium 138 mmol/L (135-145); Total Protein 7.7 g/dL (6.5-8.0); Triglycerides 129 mg/dL (<150)
[2024-08-07 09:25] LABS: TSH reflex Free T4 2.18 uIU/mL (0.32-4.0); Vitamin D 25-OH Total 9.8 ng/mL (>30)
[2024-08-07 09:28] LABS: PSA,Total (Free>4and<10) 4.43 ng/mL (0.00-4.00)
[2024-08-10 12:32] LABS: Free Prostate Spec Ag 0.7 ng/mL; Percent Free Prostate Spec Ag 15 % (calc) (>25); Prostate Specific Ag Total 4.6 ng/mL (< OR = 4.0)
== END 2024-08-07 07:21 | disposition home or self-care (01) ==
LOC: HO.LAB 07:20
DX: Z00.00 Encounter for general adult medical examination without abnormal findings (principal); E66.01 Morbid (severe) obesity due to excess calories; I10 Essential (primary) hypertension; N17.9 Acute kidney failure, unspecified; N13.30 Unspecified hydronephrosis; N13.5 Crossing vessel and stricture of ureter without hydronephrosis; R73.03 Prediabetes; R97.20 Elevated prostate specific antigen [PSA]; Z12.5 Encounter for screening for malignant neoplasm of prostate
CPT/HCPCS: 36415; 80053; 80061; 81003; 82306; 83036; 84153; 84154; 84443; 85025

== ENCOUNTER 2024-08-13 08:13 | Outpatient (REF) | payer OTHER, SELFPAY ==
--- NOTE | ~2024-08-13 | US_ITS ---
EXAMINATION: US KIDNEY BILATERAL HISTORY: N20.1 - Calculus of ureter TECHNIQUE: Real-time grayscale ultrasound imaging of the kidneys was performed and images were reviewed. COMPARISON: Comparison is made with the prior examination dated 06/20/2024. FINDINGS: Right kidney: The right kidney measures 12.4 x 5.0 x 5.4 cm. Renal parenchymal echotexture and thickness are normal. There is an upper pole cyst measuring 1.2 x 1.3 x 1.5 cm. There is no hydronephrosis or renal calculi. Left Kidney: The left kidney measures 11.0 x 5.8 x 4.5 cm. Renal parenchymal echotexture and thickness are normal. There is a 1.5 x 1.1 x 1.3 cm cyst in the interpolar region and a 1.0 by 0.9 x 0.9 cm cyst at the lower pole. There is no hydronephrosis or renal calculi. US/US renal BI IMPRESSION: Bilateral renal cysts as described. Otherwise unremarkable renal ultrasound. No calculi are identified. Electronically signed by: Santiago Machado MD 08/16/2024 07:40 AM EDT
== END 2024-08-13 08:14 | disposition home or self-care (01) ==
LOC: HO.US 08:13
PROVIDERS: Visit Provider Urology
DX: N20.1 Calculus of ureter (principal); N17.9 Acute kidney failure, unspecified; N13.30 Unspecified hydronephrosis; N13.5 Crossing vessel and stricture of ureter without hydronephrosis
CPT/HCPCS: 76775

== ENCOUNTER → 2024-08-13 08:14 | Outpatient (BNV) | payer OTHER, SELFPAY | PROVIDERS: Visit Provider Radiology Diagnostic Radiology | DX: N20.1 Calculus of ureter (principal) | CPT/HCPCS: 76775 ==

== ENCOUNTER 2024-09-06 07:44 | Outpatient (AMB) | payer OTHER, SELFPAY ==
--- NOTE | 2024-09-06 07:46 | A.OFFVIS_ITS ---
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 He is being followed for kidney stones. He was last seen in June at which time office cystoscopy and stent removal was performed. He had a renal ultrasound done 08/13/24--bilateral renal cysts no renal calculi visualized. The patient is on tamsulosin for BPH symptoms. Review of labs he had PSA 08/08/2023--4.43 ng/mL, PSA result is actually decreased from to 1225--PSA was 6.29 ng/mL. Plan will be to monitor PSA and monitor kidneys. Diet modification to reduce risk of kidney stones. Stone analysis 06/22/2024--calcium oxalate. I have discussed diet modification to decrease risk of forming more kidney stones. I have discussed low oxalate diet and specific foods to avoid including certain green leafy vegetables, chocalate, nuts, tea, beets, rubarb; low sodium, decreased use of animal protein and the importance of hydration drinking up to 2-2.5 liters of fluids and use of adding lemon to water to increase citrate in the diet. A pamphlet is also provided today. Results - Tests: Renal ultrasound on 08/13/24 showing bilateral renal cysts, no renal calculi. - Labs: PSA 07/21/24 at 6.29 ng/mL; PSA 08/08/23 at 4.43 ng/mL. 07/01/24--s/p Cystoscopy, left retrograde, left ureteroscopy laser lithotripsy stone basket stent insertion, 6 Bengali by 26 cm on 06/21/24. Here for stent removal. Left ureteral stent removed today. [facility] Medical History Hypertension Surgical History No pertinent past surgical history Social History Household Members: Family and Children Housing: House Are you a primary career technology teacher to a significant other at home: No Do you presently have visiting nurse or other home services: No Patient Tobacco Use Status: Never used Tobacco e-Cigarette/Vaping Use: Never Used service: No Cognitive needs: No Hearing needs: No Vision needs: No Review of Systems Const All systems reviewed & are unremarkable except as noted in HPI and below Reports no additional complaints Eyes Reports no additional complaints ENT Reports no additional complaints Card Reports no additional complaints Resp Reports no additional complaints GI Reports no additional complaints Reports as per HPI Musc Reports no additional complaints Skin/Breast Reports system reviewed and no additional complaints, except as documented Neuro Reports no additional complaints Psych Reports no additional complaints Endo Reports no additional complaints Mike/Lymph Reports no additional complaints Aller/Immun Reports no additional complaints Results AMB Urinalysis, Automated UA Leukoctes 0 Ryder/uL Last Edit by [employer] on 09/06/24 07:57 UA Nitrite Last Edit by [employer] on 09/06/24 07:57 UA Urobilinogen 0.2 mg/dL Last Edit by Brandyce Bress on 09/06/24 07:57 UA Protein 15 mg/dL Last Edit by [employer] on 09/06/24 07:57 UA pH 6.0 Last Edit by Brandyce Bress on 09/06/24 07:57 UA Blood 0 Med/uL Last Edit by Brandyce Bress on 09/06/24 07:57 UA Specific [place] 1.015 Last Edit by [email or web address] on 09/06/24 07:57 UA Ketone Last Edit by Sagoone [employer] on 09/06/24 07:57 UA Bilirubin 0 mg/dL Last Edit by Kwesi Morales on 09/06/24 07:57 UA Glucose 0 mg/dL Last Edit by Kwesi Morales on 09/06/24 07:57 Results Reviewed Results Reviewed: Laboratory Last Values Urine pH (Auto) 6.0 09/06/24 07:49 Specific [place] (Auto) 1.015 09/06/24 07:49 Urine Protein (Auto) 15 mg/dL 09/06/24 07:49 Glucose (UA)(Auto) 0 mg/dL 09/06/24 07:49 Urine Blood (Auto) 0 Med/uL 09/06/24 07:49 Urine Bilirubin (Auto) 0 mg/dL 09/06/24 07:49 Urine Urobilinogen (Auto) 0.2 mg/dL 09/06/24 07:49 Leukocyte Esterase (Auto) 0 Ryder/uL 09/06/24 07:49 Date of Service: 08/13/24 EXAMINATION: US KIDNEY BILATERAL HISTORY: N20.1 - Calculus of ureter TECHNIQUE: Real-time grayscale ultrasound imaging of the kidneys was performed and images were reviewed. COMPARISON: Comparison is made with the prior examination dated 06/20/2024. FINDINGS: Right kidney: The right kidney measures 12.4 x 5.0 x 5.4 cm. Renal parenchymal echotexture and thickness are normal. There is an upper pole cyst measuring 1.2 x 1.3 x 1.5 cm. There is no hydronephrosis or renal calculi. Left Kidney: The left kidney measures 11.0 x 5.8 x 4.5 cm. Renal parenchymal echotexture and thickness are normal. There is a 1.5 x 1.1 x 1.3 cm cyst in the interpolar region and a 1.0 by 0.9 x 0.9 cm cyst at the lower pole. There is no hydronephrosis or renal calculi. IMPRESSION: Bilateral renal cysts as described. Otherwise unremarkable renal ultrasound. No calculi are identified. DEIN: 06/21/24 STATUS: COMP REQ : [id number] RECD: 06/22/[address]: Michelle Parish MD COMP: 06/26/24 ENTERED: 06/22/[address] [facility] [address]: ORDERED: Kidney Stone QUERIES: Kidney Stone Source: LTURETERALSTONE Test Result Flag Reference Component 1 SEE NOTE Calcium Oxalate Dihydrate (Wedd[place]) 10% Calcium Oxalate Monohydrate ([place]) 90% Stone Weight 0.014 g This test was developed and its analytical performance characteristics have been determined by [employer]. It has not been cleared or approved by FDA. This assay has been validated pursuant to the CLIA regulations and is used for clinical purposes. THIS TEST WAS PERFORMED AT: [facility] [address] [place] [address] GERONIMO CHAMPAGNE MD,PHD,LAURITA Stone Source LEFT URETERAL STONE Assessment & Plan Assessment & Plan (1) Left ureteral stone: Code(s): N20.1 - Calculus of ureter Category: Medical (2) BPH loc w urin obs/LUTS: Code(s): N40.1 - Benign prostatic hyperplasia with lower urinary tract symptoms Category: Medical (3) Elevated PSA: Code(s): R97.20 - Elevated prostate specific antigen [PSA] Category: Medical Plan Plan - Follow the diet sheet instructions, focusing on hydration and reducing oxalate-rich food intake. - Use the 24-hour urine collection kit at your convenience; follow instructions provided for accurate collection. - Continue taking Tamsulosin for BPH symptoms as prescribed. - Plan for a follow-up PSA test in four months, two weeks before the next appointment. - Avoid sexual activity for 48 hours before the PSA test. - Contact the office with any concerns or symptoms such as increased urinary frequency or discomfort occuring before the next visit. Orders: Orders AMB Urinalysis Automated Today Z13.9 - Encounter for screening, unspecified Medications: Refilled tamsulosin 0.4 mg PO BEDTIME 30 days 90 caps 3RF Patient Instructions: The patient had an opportunity to ask questions regarding treatment plan. The patient expressed understanding and agreement with the above treatment plan. The patient is aware they should contact our office by phone for worsening of their current condition or the appearance of new symptoms. Compliance is encouraged with any medications and followup testing that is ordered. It is a privilege to be allowed the opportunity to participate in the urologic care of your patient. If you have any questions or concerns regarding treatment for the above conditions please do not hesitate to contact me. The office telephone contact is [phone]. This note is constructed in part using voice recognition software. While every effort has been made to ensure accuracy filler leaf cutter long errors may have been included. Yours sincerely, Michelle Parish MD Scribe Plan - Not visible on output: Patient was informed and verbally consented to the use of an ambient scribe for clinic note documentation during this visit. Coding Level of Care Code Est Pt Level 4 (30313) Diagnoses Left ureteral stone N20.1 BPH loc w urin obs/LUTS N40.1 Elevated PSA R97.20
== END 2024-09-06 08:24 | disposition home or self-care (01) ==
LOC: HO.HUSH 07:44
PROVIDERS: Visit Provider Urology
DX: N20.1 Calculus of ureter (principal); N40.1 Benign prostatic hyperplasia with lower urinary tract symptoms; R97.20 Elevated prostate specific antigen [PSA]; Z13.9 Encounter for screening, unspecified
CPT/HCPCS: 99214

== ENCOUNTER → 2024-09-06 07:44 | Outpatient (BNVA) | payer OTHER, SELFPAY | PROVIDERS: Visit Provider Urology | DX: N40.1 Benign prostatic hyperplasia with lower urinary tract symptoms (principal); N20.1 Calculus of ureter; R97.20 Elevated prostate specific antigen [PSA] | CPT/HCPCS: 81003 ==

== ENCOUNTER 2024-09-06 12:46 | Outpatient (REF) | payer OTHER, SELFPAY | END 2024-09-06 12:47 | disposition home or self-care (01) | LOC: HO.SH 12:46 | DX: Z01.118 Encounter for examination of ears and hearing with other abnormal findings (principal); H91.92 Unspecified hearing loss, left ear | CPT/HCPCS: 92557; 92567 ==

== ENCOUNTER 2024-10-25 10:26 | Outpatient (AMB) | payer OTHER, SELFPAY ==
--- NOTE | 2024-10-25 10:34 | A.OFFPC_ITS ---
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: No Accompanied by: Self / Same As Patient Allergies No Known Allergies Allergy (Verified 10/25/24 11:31) Medication List - Last Reconciled 10/25/24 by PAULA Mcdermott amlodipine 10 mg See Protocol PO DAILY metoprolol tartrate 100 mg See Protocol PO BID tamsulosin 0.4 mg PO BEDTIME 30 days Tobacco use date assessed: 06/30/24 Fall risk assessment: No Falls in past year Last assessed Fall Risk: 10/25/24 Dental Screening Dental Screen Date: 06/30/24 HPI htn/prediabetes HPI Details The patient is a 69-year-old male presenting for follow-up management of his chronic conditions including hypertension, nephrolithiasis, hypercholesterolemia, prediabetes, and vitamin D deficiency. His hypertension lacy s been variably controlled with past readings at 154/88, now better controlled at 124/70. He was previously treated for nephrolithiasis, with current resolution of symptoms and normal urinary function. The patient is currently managing prediabetes with dietary modifications. His blood glucose levels show improvement, with a decrease in A1c but still within prediabetic levels. Recent lab results indicate hypercholesterolemia, with cholesterol levels rising to 108, thus dietary counseling focusing on cholesterol reduction has been reiterated. Previous vitamin D level assessments showed deficiency, and he has been recommended vitamin D supplementation with partial compliance communicated. Medication management for prostatic hypertrophy continues, with successful resolution of urinary symptoms reported. [facility] Medical History Hypertension Surgical History No pertinent past surgical history Social History Household Members: Family and Children Housing: House Are you a primary home care coordinator to a significant other at home: No Do you presently have visiting nurse or other home services: No Patient Tobacco Use Status: Never used Tobacco e-Cigarette/Vaping Use: Never Used service: No Cognitive needs: No Hearing needs: No Vision needs: No Questionnaire Thrive Questionnaire Date Thrive assessed: 06/30/24 I am a: Patient What is your living situation today?: I have a steady place to live Within the past 12 months, did the food you bought not last and you didn't have the money to get more?: Never true Within the past 12 months, did you worry whether your food would run out before you got money to buy more?: Never true Do you have trouble paying for medicines?: No Do you have trouble getting transportation to medical appointments?: No Do you have trouble paying your heating and electricity bill?: No Do you have trouble taking care of your child, family member or friend?: No Do you have trouble with day-to-day activities such as bathing, preparing meals, shopping, managing finances, etc.?: No Are you currently unemployed and looking for a job?: No Are you interested in more education?: No Please select the resources that you would like help with: None Currently or been in a relationship where the following occur: I choose not to answer THRIVE Score: 0 SUSAN-7 AMB Questionnaire SUSAN-7 Date SUSAN - 7 assessed: 06/30/24 Source: Developed by Drs. Santiago Baker, Rema Shah, Nigel Love and colleagues, with an educational marija from [employer]. Review of Systems Const Denies headache(s) Eyes Denies loss of vision ENT Denies vertigo, Denies dizziness, Denies headache(s) and Denies sore throat Card Denies chest pain, Denies leg edema and Denies lightheadedness Resp Denies cough, Denies hemoptysis and Denies wheezing GI Denies abdominal pain, Denies melena, Denies constipation, Denies diarrhea and Denies vomiting Denies dysuria, Denies urinary frequency and Denies urinary urgency Musc Denies arthralgias, Denies joint swelling, Denies numbness and Denies tingling Neuro Denies Abnormal speech present, Denies behavioral changes, Denies vertigo, Denies dizziness, Denies headache(s), Denies loss of vision, Denies memory loss, Denies numbness and Denies tingling Psych Denies anxiety, Denies behavioral changes, Denies depression, Denies memory loss and Denies panic attacks Mike/Lymph Denies easy bleeding and Denies easy bruising Aller/Immun Denies wheezing Physical exam (Primary Care) Vital Signs: Last Vital Signs Temp 97.1 F 10/25/24 10:35 Pulse 68 10/25/24 10:35 BP 124/70 10/25/24 11:22 Pulse Ox 97 10/25/24 10:35 Oxygen Delivery Method Room Air 10/25/24 10:35 BMI result Body Mass Index 40.2 Tobacco/Smoking Status: Tobacco use Status Tobacco use date assessed 06/30/24 10/25/24 10:34 Patient Tobacco Use Status Never used Tobacco 10/25/24 10:34 e-Cigarette/Vaping Use Never Used 10/25/24 10:34 Thrive Assessment: Date of Thrive Assessment Date Thrive assessed 06/30/24 10/25/24 10:34 Currently or been in a relationship where the following occur: I choose not to answer Const General: healthy appearing, no acute distress, alert and awake Nutritional Appearance: well nourished Orientation/consciousness: oriented to person, oriented to place and oriented to time HENMT Ears: TM's normal bilaterally General nose exam: Normal nasal mucous membranes and turbinates present Eyes Conjunctivae: conjunctivae normal Sclerae: sclerae normal Pupils: Equal, round and reactive pupils present Neck Neck: Yes no lymphadenopathy and Yes no JVD Thyroid: Thyroid normal Carotids: no bruits Resp Effort & Inspection: normal respiratory effort and not tachypneic Auscultation: no crackles, no rales, no rhonchi and no wheezes Cardio Rate: regular rate Rhythm: regular rhythm Heart sounds: no murmurs and normal S1 and S2 GI Palpation (GI): Soft to palpation, nontender, no hepatomegaly and no splenomegaly Auscultation: normal bowel sounds General: Yes no CVA tenderness Back/Spine/Pelvis Back: no CVA tenderness Skin General skin exam: no rashes or lesions noted and dry skin Neuro General: oriented to person, oriented to place and oriented to time Cranial nerves: Yes Equal, round and reactive pupils present Speech: No Abnormal speech present Gait exam (Neuro): Normal gait present Motor exam (neuro): no tremor noted Extrem Right upper extremity: full ROM Left upper extremity: full ROM Right lower extremity: full ROM; no edema Left lower extremity: full ROM; no edema Psych Mental Status: mental status grossly normal Speech and movement: Normal speech and movement present Affect: normal affect Attitude: cooperative Thought process: Normal thought process present Results Reviewed Results Reviewed: Laboratory Tests 08/07/24 08/07/24 08/07/24 07:24 07:37 09:28 WBC 5.7 RBC 4.87 Hgb 13.6 L Hct 40.6 L MCV 83.4 MCH 27.9 MCHC 33.5 RDW 13.6 Plt Count 226 Sodium 138 Potassium 4.5 Chloride 107 Carbon Dioxide 22 Anion Gap 14 BUN 17 H Creatinine 1.10 Estimated GFR > 60 Fasting Glucose 133 H Estimat Average Glucose 128 Hemoglobin A1c % 6.1 H Calcium 8.8 Total Bilirubin 0.6 AST 26 ALT 29 Alkaline Phosphatase 81 Total Protein 7.7 Albumin 4.0 Triglycerides 129 Cholesterol 171 LDL Cholesterol, Calc 108 H HDL Cholesterol 38 L Free PSA 0.7 % Free PSA 15 L Total PSA 4.43 H Total PSA (off-site) 4.6 H 25-OH Vitamin D Total 9.8 L TSH 2.18 Urine Color Yellow Urine Appearance Clear Urine pH 6.5 Ur Specific [place] 1.015 Specific [place] (Auto) Urine Protein Trace Urine Protein (Auto) Urine Glucose (UA) Negative Urine Ketones Negative Urine Blood Negative Urine Nitrite Negative Urine Bilirubin (Auto) Urine Urobilinogen (Auto) Ur Leukocyte Esterase Negative Leukocyte Esterase (Auto) 09/06/24 07:49 WBC RBC Hgb Hct MCV MCH MCHC RDW Plt Count Sodium Potassium Chloride Carbon Dioxide Anion Gap BUN Creatinine Estimated GFR Fasting Glucose Estimat Average Glucose Hemoglobin A1c % Calcium Total Bilirubin AST ALT Alkaline Phosphatase Total Protein Albumin Triglycerides Cholesterol LDL Cholesterol, Calc HDL Cholesterol Free PSA % Free PSA Total PSA Total PSA (off-site) 25-OH Vitamin D Total TSH Urine Color Urine Appearance Urine pH Ur Specific [place] Specific [place] (Auto) 1.015 Urine Protein Urine Protein (Auto) 15 Urine Glucose (UA) Urine Ketones Urine Blood Urine Nitrite Urine Bilirubin (Auto) 0 Urine Urobilinogen (Auto) 0.2 Ur Leukocyte Esterase Leukocyte Esterase (Auto) 0 Coding Level of Care Code Est Pt Level 4 (45930) Diagnoses Hypertension, unspecified type I10 Hypertension type: unspecified Morbid obesity E66.01 Elevated PSA R97.20 Prediabetes R73.03 BPH loc w urin obs/LUTS N40.1 Time Spent (min) 36 Assessment & Plan Assessment & Plan (1) Hypertension: Code(s): I10 - Essential (primary) hypertension Category: Medical Qualifiers: Hypertension type: unspecified Qualified Code(s): I10 - Essential (primary) hypertension (2) Morbid obesity: Code(s): E66.01 - Morbid (severe) obesity due to excess calories Category: Medical (3) Elevated PSA: Code(s): R97.20 - Elevated prostate specific antigen [PSA] Category: Medical (4) Prediabetes: Code(s): R73.03 - Prediabetes Category: Medical (5) BPH loc w urin obs/LUTS: Code(s): N40.1 - Benign prostatic hyperplasia with lower urinary tract symptoms Category: Medical Plan For this visit, I discussed the management of the patient's hypertension, noting an improvement in blood pressure readings, and recommended continued medication adherence. Resolving nephrolithiasis suggests no current intervention except adequate hydration maintenance. Concerning hypercholesterolemia, I provided dietary advice on reducing cholesterol intake. The management of prediabetes involves continued monitoring of carbohydrate intake, with an emphasis on reducing rice consumption. Ongoing vitamin D deficiency merits regular supplementation. Prostatic hypertrophy medications remain necessary for maintaining symptom relief. Lifestyle modifications characterized by increased physical activity are advised for weight management and cardiovascular health. Scheduled follow-up visits will be essential for monitoring progress and any necessary adjustments. Patient was informed and verbally consented to the use of an ambient scribe for clinic note documentation during this visit. Orders: Orders Vitamin D 25-OH Total 3 Months E66.01 - Morbid (severe) obesity due to excess calories, I10 - Essential (primary) hypertension, N17.9 - Acute kidney failure, unspecified, N40.1 - Benign prostatic hyperplasia with lower urinary tract symptoms, R97.20 - Elevated prostate specific antigen [PSA] Complete Blood Count Auto Diff 3 Months E66.01 - Morbid (severe) obesity due to excess calories, I10 - Essential (primary) hypertension, N17.9 - Acute kidney failure, unspecified, N40.1 - Benign prostatic hyperplasia with lower urinary tract symptoms, R97.20 - Elevated prostate specific antigen [PSA] Comprehensive [place]. Panel Fast 3 Months E66.01 - Morbid (severe) obesity due to excess calories, I10 - Essential (primary) hypertension, N17.9 - Acute kidney failure, unspecified, N40.1 - Benign prostatic hyperplasia with lower urinary tract symptoms, R97.20 - Elevated prostate specific antigen [PSA] Lipid Panel 3 Months E66.01 - Morbid (severe) obesity due to excess calories, I10 - Essential (primary) hypertension, N17.9 - Acute kidney failure, unspecified, N40.1 - Benign prostatic hyperplasia with lower urinary tract symptoms, R97.20 - Elevated prostate specific antigen [PSA] TSH reflex Free T4 3 Months E66.01 - Morbid (severe) obesity due to excess calories, I10 - Essential (primary) hypertension, N17.9 - Acute kidney failure, unspecified, N40.1 - Benign prostatic hyperplasia with lower urinary tract symptoms, R97.20 - Elevated prostate specific antigen [PSA] UA CC w/rflx Micro + Cult 3 Months E66.01 - Morbid (severe) obesity due to excess calories, I10 - Essential (primary) hypertension, N17.9 - Acute kidney failure, unspecified, N40.1 - Benign prostatic hyperplasia with lower urinary tract symptoms, R97.20 - Elevated prostate specific antigen [PSA] Patient Instructions: - Monitor blood pressure regularly and adhere to prescribed medications - Maintain hydration and follow dietary recommendations to manage cholesterol and prediabetes - Reduce intake of foods high in cholesterol, such as eggs and cheese - Take vitamin D supplements consistently daily - Engage in regular physical activity; consider purchasing a treadmill for at- home exercise - Continue taking your medications for prostatic health - Follow up with scheduled appointments and monitor your health indicators - Contact the pharmacy or our office before medications run out to ensure timely refills
[2024-10-25 10:35] VITALS: BP 116/74; PULSE 68; TEMP 36.2; O2SAT 97; BMI 40.2
[2024-10-25 11:22] VITALS: BP 124/70
== END 2024-10-25 11:38 | disposition home or self-care (01) ==
LOC: HO.HMCH 10:27
DX: I10 Essential (primary) hypertension (principal); E66.01 Morbid (severe) obesity due to excess calories; Z68.41 Body mass index [BMI] 40.0-44.9, adult; R97.20 Elevated prostate specific antigen [PSA]; R73.03 Prediabetes; N40.1 Benign prostatic hyperplasia with lower urinary tract symptoms

== ENCOUNTER → 2024-10-25 10:26 | Outpatient (BNVA) | payer OTHER, SELFPAY | DX: Z13.89 Encounter for screening for other disorder (principal) ==

== ENCOUNTER 2024-12-25 07:54 | Outpatient (REF) | payer OTHER, SELFPAY ==
[2024-12-25 08:04] LABS: MANUAL DIFF FLAG NO
[2024-12-25 09:10] LABS: Hematocrit 42.2 % (42.0-52.0); Hemoglobin 14.2 g/dl (14.0-18.0); Imm Gran Abs Auto 0.03 X10*3/uL (0.00-0.03); Imm Gran Pct Auto 0.5 % (0.0-0.4); Lymphocytes Absolute Auto 1.8 X10*3/uL (1.2-4.9); Mean Corpuscular HGB Conc 33.6 g/dl (31.0-36.0); Mean Corpuscular Hemoglobin 28.5 pg (27.0-33.0); Mean Corpuscular Volume 84.7 fL (80.0-98.0); NRBC Abs Auto 0.000 X10*3/uL (0.0-0.012); NRBC Pct Auto 0.0 /100WBC (0.0-0.2); Platelet Count 226 X10*3/uL (160-400); Red Blood Count 4.98 X10*6/uL (4.60-5.80); White Blood Count 6.3 X10*3/uL (4.8-10.8)
[2024-12-25 09:18] LABS: Appearance Urine Clear; Glucose Urine UA Negative (Negative); PH 7.0 (5.0-9.0); Specific Gravity - Urine 1.015 (1.005-1.025); UMIC TRIGGER UACC YES
[2024-12-25 10:02] LABS: Alanine Aminotransferase 24 U/L (0-40); Albumin Level 4.3 g/dL (3.5-5.0); Alkaline Phosphatase 81 U/L (39-117); Anion Gap 11 (12-20); Aspartate Amino Transferase 23 U/L (5-37); Blood Urea Nitrogen 14 mg/dL (9-16); Calcium 8.9 mg/dL (8.4-10.2); Carbon Dioxide 25 mmol/L (22-29); Chloride 105 mmol/L (96-108); Cholesterol 170 mg/dL (<200); Estimated Glomerular Filt Rate > 60; HDL Cholesterol 36 mg/dL (>40); Potassium 4.2 mmol/L (3.3-5.1); Sodium 137 mmol/L (135-145); Total Protein 7.5 g/dL (6.5-8.0); Triglycerides 192 mg/dL (<150)
== END 2024-12-25 07:55 | disposition home or self-care (01) ==
LOC: HO.LAB 07:54
DX: N40.1 Benign prostatic hyperplasia with lower urinary tract symptoms (principal); R97.20 Elevated prostate specific antigen [PSA]; E66.01 Morbid (severe) obesity due to excess calories; I10 Essential (primary) hypertension; N17.9 Acute kidney failure, unspecified
CPT/HCPCS: 36415; 80053; 80061; 81001; 82306; 84443; 85025

== ENCOUNTER 2025-01-25 11:04 | Outpatient (AMB) | payer OTHER, SELFPAY ==
--- NOTE | 2025-01-25 11:08 | MHC.PC.OV ---
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 Accompanied by: Self / Same As Patient Allergies No Known Allergies Allergy (Verified 01/25/25 11:44) Medication List - Last Reconciled 01/25/25 by PAULA Mcdermott amlodipine 10 mg See Protocol PO DAILY metoprolol tartrate 100 mg See Protocol PO BID tamsulosin 0.4 mg PO BEDTIME 30 days Tobacco use date assessed: 01/25/25 Fall risk assessment: No Falls in past year Last assessed Fall Risk: 01/25/25 Dental Screening Dental Screen Date: 01/25/25 Did you have a dental visit in the last 12 months?: No Did you have a dental problem in the last 6 months where you did not have access to dental care?: No Was dental information given to patient?: No HPI hld/htn/vitamin D def - see comments HPI Details The patient is a 69-year-old male presenting with obesity management. The patient has experienced fluctuations in weight, with recent measurements indicating an increase to 230 pounds from a previous 226 pounds. Despite initial weight loss efforts, the patient reports difficulty maintaining a downward trend in weight. The patient has a history of hypertension, previously recorded at 168 mmHg, which has improved to 124 mmHg with medication. The patient is currently on antihypertensive medication, which has contributed to better blood pressure control. The patient has a history of kidney injury, which has resulted in proteinuria. This condition is being monitored, with plans to repeat urine tests in three months to assess for improvement. The patient is being treated for benign prostatic hyperplasia with tamsulosin, which has improved urinary symptoms. The patient reports waking up three times a night to urinate, which is an improvement from previous symptoms. [facility] Medical History Hypertension Surgical History No pertinent past surgical history Social History Household Members: Family and Children Housing: House Are you a primary director of health care marketing to a significant other at home: No Do you presently have visiting nurse or other home services: No Patient Tobacco Use Status: Never used Tobacco e-Cigarette/Vaping Use: Never Used service: No Cognitive needs: No Hearing needs: No Vision needs: No Questionnaire PHQ-9 Over the last 2 weeks, how often have you been bothered by any of the following problems? 1. Little interest or pleasure in doing things: nearly every day 2. Feeling down, depressed, or hopeless: not at all 3. Trouble falling or staying asleep, or sleeping too much: not at all 4. Feeling tired or having little energy: not at all 5. Poor appetite or overeating: not at all 6. Feeling bad about yourself - or that you are a failure or have let yourself or your family down: not at all 7. Trouble concentrating on things, such as reading the newspaper or watching television: not at all 8. Moving or speaking so slowly that other people could have noticed. Or the opposite - being so fidgety or restless that you have been moving around a lot more than usual: not at all 9. Thoughts that you would be better off or of hurting yourself in some way: not at all Total score: 3 Depression Screening Interpretation: Positive Depression Screening Done: Yes Source: Developed by Drs. Santiago Baker, Rema Shah, Nigel Love and colleagues, with an educational marija from [employer]. Thrive Questionnaire Date Thrive assessed: 01/25/25 I am a: Patient What is your living situation today?: I have a steady place to live Within the past 12 months, did the food you bought not last and you didn't have the money to get more?: Never true Within the past 12 months, did you worry whether your food would run out before you got money to buy more?: Never true Do you have trouble paying for medicines?: No Do you have trouble getting transportation to medical appointments?: No Do you have trouble paying your heating and electricity bill?: No Do you have trouble taking care of your child, family member or friend?: No Do you have trouble with day-to-day activities such as bathing, preparing meals, shopping, managing finances, etc.?: No Are you currently unemployed and looking for a job?: No Are you interested in more education?: No Please select the resources that you would like help with: None Currently or been in a relationship where the following occur: I choose not to answer THRIVE Score: 0 AUDIT C Alcohol Use Questionnaire (AUDIT-C) 1. How often do you have a drink containing alcohol?: Never 3. How often do you have six or more drinks on one occasion?: Never Total Score: 0 Score Reviewed/Action Taken: Yes SUSAN-7 AMB Questionnaire SUSAN-7 Date SUSAN - 7 assessed: 01/25/25 Feeling nervous, anxious, or on edge: 0 = Not at all Not being able to stop or control worryin = Several days Worrying too much about different things: 0 = Not at all Trouble relaxin = Not at all Being so restless that it is hard to sit still: 0 = Not at all Becoming easily annoyed or irritable: 0 = Not at all Feeling afraid as if something awful might happen: 0 = Not at all Total SUSAN-7 score (0-4 normal; 5-9 mild; 10-14 moderate; 15-21 severe): 1 Source: Developed by Drs. Santiago Baker, Rema Shah, Nigel Love and colleagues, with an educational marija from [employer]. Review of Systems Const Denies headache(s) Eyes Denies loss of vision ENT Denies vertigo, Denies dizziness, Denies headache(s) and Denies sore throat Card Denies chest pain, Denies leg edema and Denies lightheadedness Resp Denies cough, Denies hemoptysis and Denies wheezing GI Denies abdominal pain, Denies melena, Denies constipation, Denies diarrhea and Denies vomiting Denies dysuria, Reports nocturia and Denies urinary urgency Musc Denies arthralgias, Denies joint swelling, Denies numbness and Denies tingling Neuro Denies Abnormal speech present, Denies behavioral changes, Denies vertigo, Denies dizziness, Denies headache(s), Denies loss of vision, Denies memory loss, Denies numbness and Denies tingling Psych Denies anxiety, Denies behavioral changes, Denies depression, Denies memory loss and Denies panic attacks Mike/Lymph Denies easy bleeding and Denies easy bruising Aller/Immun Denies wheezing Physical exam (Primary Care) Vital Signs: Last Vital Signs Temp 97.1 F 01/25/25 11:09 Pulse 59 01/25/25 11:09 Resp 18 01/25/25 11:09 BP 130/78 01/25/25 11:09 Pulse Ox 97 01/25/25 11:09 Oxygen Delivery Method Room Air 01/25/25 11:09 BMI result Body Mass Index 41.0 Tobacco/Smoking Status: Tobacco use Status Tobacco use date assessed 01/25/25 01/25/25 11:13 Patient Tobacco Use Status Never used Tobacco 01/25/25 11:13 e-Cigarette/Vaping Use Never Used 01/25/25 11:13 PHQ-9: PHQ-9 Score PHQ-9: Total score 3 01/25/25 12:06 Depression Screening Interpretation: Positive Thrive Assessment: Date of Thrive Assessment Date Thrive assessed 01/25/25 01/25/25 11:13 Currently or been in a relationship where the following occur: I choose not to answer Const General: healthy appearing, no acute distress, alert and awake Nutritional Appearance: well nourished Orientation/consciousness: oriented to person, oriented to place and oriented to time HENMT Ears: hearing grossly normal bilaterally General nose exam: Normal external nose present Eyes Conjunctivae: conjunctivae normal Sclerae: sclerae normal Pupils: Equal, round and reactive pupils present Neck Neck: Yes no lymphadenopathy and Yes no JVD Thyroid: Thyroid normal Carotids: no bruits Resp Effort & Inspection: normal respiratory effort and not tachypneic Auscultation: no crackles, no rales, no rhonchi and no wheezes Cardio Rate: regular rate Rhythm: regular rhythm Heart sounds: no murmurs and normal S1 and S2 GI Palpation (GI): Soft to palpation, nontender, no hepatomegaly and no splenomegaly Auscultation: normal bowel sounds Skin General skin exam: no rashes or lesions noted and dry skin Neuro General: oriented to person, oriented to place and oriented to time Cranial nerves: Yes Equal, round and reactive pupils present Speech: No Abnormal speech present Gait exam (Neuro): Normal gait present Motor exam (neuro): no tremor noted Extrem Right upper extremity: full ROM Left upper extremity: full ROM Right lower extremity: full ROM; no edema Left lower extremity: full ROM; no edema Psych Mental Status: mental status grossly normal Speech and movement: Normal speech and movement present Affect: normal affect Attitude: cooperative Thought process: Normal thought process present Results Reviewed Results Reviewed: Laboratory Tests 12/25/24 12/25/24 08:01 08:03 WBC 6.3 RBC 4.98 Hgb 14.2 Hct 42.2 MCV 84.7 MCH 28.5 MCHC 33.6 RDW 13.2 Plt Count 226 MPV 10.9 Immature Gran % (Auto) 0.5 H Neut % (Auto) 59.2 Sodium 137 Potassium 4.2 Chloride 105 Carbon Dioxide 25 Anion Gap 11 L BUN 14 Creatinine 1.16 Estimated GFR > 60 Fasting Glucose 123 H Calcium 8.9 Total Bilirubin 0.8 AST 23 ALT 24 Alkaline Phosphatase 81 Total Protein 7.5 Albumin 4.3 Triglycerides 192 H Cholesterol 170 LDL Cholesterol, Calc 96 HDL Cholesterol 36 L 25-OH Vitamin D Total 25.7 L TSH 2.21 Urine Color Yellow Urine Appearance Clear Urine pH 7.0 Ur Specific [place] 1.015 Urine Protein 30 (1+) H Urine Glucose (UA) Negative Urine Ketones Negative Urine Blood Negative Urine Nitrite Negative Ur Leukocyte Esterase Negative Urine RBC 0-2 Urine WBC 0-5 Ur Squamous Epith Cells 0-2 Urine Bacteria None Seen Hyaline Casts 0-2 Coding Level of Care Code Est Pt Level 4 (05225) Diagnoses Hypertension, unspecified type I10 Hypertension type: unspecified Prediabetes R73.03 Morbid obesity E66.01 Proteinuria, unspecified type R80.9 Proteinuria type: unspecified Elevated PSA R97.20 BPH loc w urin obs/LUTS N40.1 Vitamin D deficiency E55.9 Pure hypertriglyceridemia E78.1 Hyperlipidemia type: pure hypertriglyceridemia Time Spent (min) 39 Assessment & Plan Assessment & Plan (1) Hypertension: Code(s): I10 - Essential (primary) hypertension Category: Medical Qualifiers: Hypertension type: unspecified Qualified Code(s): I10 - Essential (primary) hypertension Plan: Blood pressure 130/78 within goal Reinforced low-salt diet Continue metoprolol tartrate 100 mg b.i.d., amlodipine 100 mg daily (2) Prediabetes: Code(s): R73.03 - Prediabetes Category: Medical Plan: The patient fasting glucose was 123 which is a decreased from 133. A1c done in August was 6.1%. Educated the patient that this puts him in the prediabetic range. Discussed lifestyle modification. We will continue to monitor fasting glucose and A1c (3) Morbid obesity: Code(s): E66.01 - Morbid (severe) obesity due to excess calories Category: Medical Plan: Encouraged to exercise for at least 30 minutes a day/5 days a week Healthy eating discussed. Encouraged to eat fruits/vegetables, protein-fish/baked chicken, and to avoid salty/fried foods, sweets, caffeine and carbohydrates. Encouraged to increase water intake 6-8 glasses a day (4) Proteinuria: Code(s): R80.9 - Proteinuria, unspecified Category: Medical Qualifiers: Proteinuria type: unspecified Qualified Code(s): R80.9 - Proteinuria, unspecified Plan: Encouraged adequate hydration and blood pressure management (5) Elevated PSA: Code(s): R97.20 - Elevated prostate specific antigen [PSA] Category: Medical Plan: Continue tamsulosin 0.4 mg at bedtime Follow up with Urology as scheduled (6) BPH loc w urin obs/LUTS: Code(s): N40.1 - Benign prostatic hyperplasia with lower urinary tract symptoms Category: Medical Plan: Same as above (7) Vitamin D deficiency: Code(s): E55.9 - Vitamin D deficiency, unspecified Category: Medical Plan: Vitamin D is 25.7 Encouraged vitamin D3 OTC (8) HLD (hyperlipidemia): Code(s): E78.5 - Hyperlipidemia, unspecified Category: Medical Qualifiers: Hyperlipidemia type: pure hypertriglyceridemia Qualified Code(s): E78.1 - Pure hyperglyceridemia Plan: Patient triglycerides was 192, total cholesterol 170, LDL 96, HDL 36. Discussed lifestyle modification Encouraged fish oil We will recheck lipid panel in 3 months Plan The patient is advised to continue participating in the exercise program at work to aid in weight management and improve overall health. The patient should maintain adherence to antihypertensive medication to ensure blood pressure remains controlled. Monitoring of kidney function will continue, with a repeat urinalysis scheduled in three months to assess for resolution of proteinuria. The patient is advised to continue taking tamsulosin for benign prostatic hyperplasia to manage urinary symptoms effectively. Patient was informed and verbally consented to the use of an ambient scribe for clinic note documentation during this visit. Orders: Orders Complete Blood Count Auto Diff 3 Months E66.01 - Morbid (severe) obesity due to excess calories, I10 - Essential (primary) hypertension, N17.9 - Acute kidney failure, unspecified, R73.03 - Prediabetes, R80.9 - Proteinuria, unspecified Lipid Panel 3 Months E66.01 - Morbid (severe) obesity due to excess calories, I10 - Essential (primary) hypertension, N17.9 - Acute kidney failure, unspecified, R73.03 - Prediabetes, R80.9 - Proteinuria, unspecified UA CC w/rflx Micro + Cult 3 Months E66.01 - Morbid (severe) obesity due to excess calories, I10 - Essential (primary) hypertension, N17.9 - Acute kidney failure, unspecified, R73.03 - Prediabetes, R80.9 - Proteinuria, unspecified Vitamin D 25-OH Total 3 Months E66.01 - Morbid (severe) obesity due to excess calories, I10 - Essential (primary) hypertension, N17.9 - Acute kidney failure, unspecified, R73.03 - Prediabetes, R80.9 - Proteinuria, unspecified Hemoglobin A1c 3 Months E66.01 - Morbid (severe) obesity due to excess calories, I10 - Essential (primary) hypertension, N17.9 - Acute kidney failure, unspecified, R73.03 - Prediabetes, R80.9 - Proteinuria, unspecified Comprehensive [place]. Panel Fast 3 Months E66.01 - Morbid (severe) obesity due to excess calories, I10 - Essential (primary) hypertension, N17.9 - Acute kidney failure, unspecified, R73.03 - Prediabetes, R80.9 - Proteinuria, unspecified TSH reflex Free T4 3 Months E66.01 - Morbid (severe) obesity due to excess calories, I10 - Essential (primary) hypertension, N17.9 - Acute kidney failure, unspecified, R73.03 - Prediabetes, R80.9 - Proteinuria, unspecified Microalbumin, Random (w Creat) 3 Months E66.01 - Morbid (severe) obesity due to excess calories, I10 - Essential (primary) hypertension, N17.9 - Acute kidney failure, unspecified, R73.03 - Prediabetes, R80.9 - Proteinuria, unspecified
[2025-01-25 11:09] VITALS: BP 130/78; PULSE 59; RESP 18; TEMP 36.2; O2SAT 97; BMI 41.0
== END 2025-01-25 12:14 | disposition home or self-care (01) ==
LOC: HO.HMCH 11:04
DX: I10 Essential (primary) hypertension (principal); R73.03 Prediabetes; E66.01 Morbid (severe) obesity due to excess calories; Z68.41 Body mass index [BMI] 40.0-44.9, adult; R80.9 Proteinuria, unspecified; R97.20 Elevated prostate specific antigen [PSA]; N40.1 Benign prostatic hyperplasia with lower urinary tract symptoms; E55.9 Vitamin D deficiency, unspecified; E78.1 Pure hyperglyceridemia

== ENCOUNTER 2025-02-24 07:21 | Outpatient (AMB) | payer OTHER, SELFPAY ==
--- NOTE | 2025-02-24 07:42 | A.OFFVIS_ITS ---
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 Discussed 24 hour urine results collected:10/06/24-- Total volume 1.91 L, Calcium 238 mg; Oxalate 34 mg, Citrate 370 mg, Sodium 243. Instructed on importance of fluid intake. The patient has an elevated PSA--08/07/2024 PSA 4.43 ng/mL. 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 History of Present Illness The patient is a 69-year-old male presenting for follow-up on nephrolithiasis. He has a history of kidney stones and underwent a 24-hour urine collection to assess risk factors for stone formation. The urine analysis revealed hypercalciuria with a calcium level of 238 mg/day, which is higher than desired. Additionally, the urine citrate level was low at 370 mg/day, indicating hypocitraturia, and the urine sodium was elevated at 243 mmol/day, indicating hypernatriuria. The patient also has proteinuria, which was noted during the current evaluation. He was previously seen by nephrology for a kidney injury and will be referred back for further evaluation of these findings. The patient's PSA was previously noted to be elevated, and a repeat test is planned to monitor this finding. He reports no current issues with urination, although he previously experienced pain during urination. Results - Urine calcium: 238 mg/day (elevated) - Urine citrate: 370 mg/day (low) - Urine sodium: 243 mmol/day (elevated) - Proteinuria: present - PSA: previously elevated, repeat test planned Plan 1. Nephrolithiasis - Continue monitoring fluid intake to achieve 2 to 2.5 liters per day. - Referral to nephrology for further evaluation and management of hypercalciuria and proteinuria. - Dietary modifications to reduce sodium intake. - Consideration of lemon juice as a natural inhibitor of stone formation. 2. Elevated Prostate-Specific Antigen (Psa) - Repeat PSA test planned to monitor levels. - Continue current medication regimen including tamsulosin. [facility] Medical History Hypertension Surgical History No pertinent past surgical history Social History Household Members: Family and Children Housing: House Are you a primary patient care provider to a significant other at home: No Do you presently have visiting nurse or other home services: No Patient Tobacco Use Status: Never used Tobacco e-Cigarette/Vaping Use: Never Used service: No Cognitive needs: No Hearing needs: No Vision needs: No Review of Systems Const All systems reviewed & are unremarkable except as noted in HPI and below Reports no additional complaints Eyes Reports no additional complaints ENT Reports no additional complaints Card Reports no additional complaints Resp Reports no additional complaints GI Reports no additional complaints Reports as per HPI Musc Reports no additional complaints Skin/Breast Reports system reviewed and no additional complaints, except as documented Neuro Reports no additional complaints Psych Reports no additional complaints Endo Reports no additional complaints Mike/Lymph Reports no additional complaints Aller/Immun Reports no additional complaints Results Reviewed Results Reviewed: Date of Service: 08/13/24 EXAMINATION: US KIDNEY BILATERAL HISTORY: N20.1 - Calculus of ureter TECHNIQUE: Real-time grayscale ultrasound imaging of the kidneys was performed and images were reviewed. COMPARISON: Comparison is made with the prior examination dated 06/20/2024. FINDINGS: Right kidney: The right kidney measures 12.4 x 5.0 x 5.4 cm. Renal parenchymal echotexture and thickness are normal. There is an upper pole cyst measuring 1.2 x 1.3 x 1.5 cm. There is no hydronephrosis or renal calculi. Left Kidney: The left kidney measures 11.0 x 5.8 x 4.5 cm. Renal parenchymal echotexture and thickness are normal. There is a 1.5 x 1.1 x 1.3 cm cyst in the interpolar region and a 1.0 by 0.9 x 0.9 cm cyst at the lower pole. There is no hydronephrosis or renal calculi. IMPRESSION: Bilateral renal cysts as described. Otherwise unremarkable renal ultrasound. No calculi are identified. EDIN: 06/21/24 STATUS: COMP REQ : [id number] RECD: 06/22/[address]: Michelle Parish MD COMP: 06/26/24 ENTERED: 06/22/[address]: ORDERED: Kidney Stone QUERIES: Kidney Stone Source: LTURETERALSTONE Test Result Flag Reference Component 1 SEE NOTE Calcium Oxalate Dihydrate ([place]) 10% Calcium Oxalate Monohydrate ([place]) 90% Stone Weight 0.014 g This test was developed and its analytical performance characteristics have been determined by [employer]. It has not been cleared or approved by FDA. This assay has been validated pursuant to the CLIA regulations and is used for clinical purposes. THIS TEST WAS PERFORMED AT: [employer] [address] [place] [address] GERONIMO CHAMPAGNE MD,PHD,LAURITA Stone Source LEFT URETERAL STONE Assessment & Plan Assessment & Plan (1) Proteinuria: Code(s): R80.9 - Proteinuria, unspecified Category: Medical Qualifiers: Proteinuria type: unspecified Qualified Code(s): R80.9 - Proteinuria, unspecified (2) Hypercalciuria: Code(s): R82.994 - Hypercalciuria Category: Medical (3) History of kidney stones: Code(s): Z87.442 - Personal history of urinary calculi Category: Medical (4) Bilateral renal cysts: Code(s): N28.1 - Cyst of kidney, acquired Category: Medical (5) Elevated PSA: Code(s): R97.20 - Elevated prostate specific antigen [PSA] Category: Medical Plan Referred to Nephrology Repeat PSA We will continue to monitor kidneys Orders: Referrals Nephrology Referral N28.1 - Cyst of kidney, acquired, R80.9 - Proteinuria, unspecified, R82.994 - Hypercalciuria, Z87.442 - Personal history of urinary calculi Patient Instructions: The patient had an opportunity to ask questions regarding treatment plan. The patient expressed understanding and agreement with the above treatment plan. The patient is aware they should contact our office by phone for worsening of their current condition or the appearance of new symptoms. Compliance is encouraged with any medications and followup testing that is ordered. It is a privilege to be allowed the opportunity to participate in the urologic care of your patient. If you have any questions or concerns regarding treatment for the above conditions please do not hesitate to contact me. The office telephone contact is [phone]. This note is constructed in part using voice recognition software. While every effort has been made to ensure accuracy job tracer errors may have been included. Yours sincerely, Michelle Parish MD Scribe Plan - Not visible on output: Patient was informed and verbally consented to the use of an ambient scribe for clinic note documentation during this visit. Coding Level of Care Code Tele Est Pt Level 4 (08700) Complex EM visit Add On G2211 Diagnoses Proteinuria, unspecified type R80.9 Proteinuria type: unspecified Hypercalciuria R82.994 History of kidney stones Z87.442 Bilateral renal cysts N28.1 Elevated PSA R97.20
== END 2025-02-24 08:42 | disposition home or self-care (01) ==
LOC: HO.HUSH 07:22
PROVIDERS: Visit Provider Urology
DX: R80.9 Proteinuria, unspecified (principal); R82.994 Hypercalciuria; Z87.442 Personal history of urinary calculi; N28.1 Cyst of kidney, acquired; R97.20 Elevated prostate specific antigen [PSA]; N13.30 Unspecified hydronephrosis; N40.1 Benign prostatic hyperplasia with lower urinary tract symptoms
CPT/HCPCS: 99214; G2211

== ENCOUNTER → 2025-02-24 07:21 | Outpatient (BNVA) | payer OTHER, SELFPAY | PROVIDERS: Visit Provider Urology | DX: N40.1 Benign prostatic hyperplasia with lower urinary tract symptoms (principal); N13.8 Other obstructive and reflux uropathy; N13.30 Unspecified hydronephrosis; N28.1 Cyst of kidney, acquired; R80.9 Proteinuria, unspecified; R97.20 Elevated prostate specific antigen [PSA]; R82.994 Hypercalciuria; Z87.442 Personal history of urinary calculi | CPT/HCPCS: 81003 ==

== ENCOUNTER 2025-03-07 14:56 | Outpatient (AMB) | payer OTHER, SELFPAY ==
--- NOTE | 2025-03-07 15:02 | HO.NEPHOV_ITS ---
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 - History of nephrolithiasis with one stone episode a year ago. - 24-hour urine collection showed hypercalciuria and proteinuria. - Denies current kidney or back pain. - Hypertension managed with amlodipine and metoprolol. - Drinks four to five bottles of water daily with lemon. - Frequent restaurant meals, high in salt. - Renal cyst monitored via ultrasound and CT scan. [facility] Medical History Hypertension Surgical History No pertinent past surgical history Social History Household Members: Family and Children Housing: House Are you a primary urgent care technician to a significant other at home: No Do you presently have visiting nurse or other home services: No Patient Tobacco Use Status: Never used Tobacco e-Cigarette/Vaping Use: Never Used service: No Cognitive needs: No Hearing needs: No Vision needs: No Physical Exam Vital Signs: Last Vital Signs Pulse 69 03/07/25 15:03 BP 114/62 03/07/25 15:03 Pulse Ox 97 03/07/25 15:03 Oxygen Delivery Method Room Air 03/07/25 15:03 BMI result Body Mass Index 40.9 Results Reviewed Nephrology Results: Hgb, (14.0-18.0) 14.2 g/dl 12/25/24 WBC, (4.8-10.8) 6.3 X10*3/uL 12/25/24 Plt Count, (160-400) 226 X10*3/uL 12/25/24 Sodium, (135-145) 137 mmol/L 12/25/24 Potassium, (3.3-5.1) 4.2 mmol/L 12/25/24 Chloride, (96-108) 105 mmol/L 12/25/24 Carbon Dioxide, (22-29) 25 mmol/L 12/25/24 BUN, (9-16) 14 mg/dL 12/25/24 Creatinine, (0.5-1.4) 1.16 mg/dL 12/25/24 Calcium, (8.4-10.2) 8.9 mg/dL 12/25/24 Urine Protein, (Neg-Trace) 30 (1+) mg/dL H 12/25/24 Renal US 08/13/24 Assessment & Plan Assessment & Plan (1) History of kidney stones: Code(s): Z87.442 - Personal history of urinary calculi Category: Medical Plan: Twenty-four urine collection to past did not reveal any hypercalciuria. He had hypo citrate urea. Uric acid excretion was elevated. Sodium excretion were elevated. Repeat 24 urine collection. You should stay on low-sodium diet Increase citrate intake. Based on this urine collection I will consider adding potassium citrate. (2) Bilateral renal cysts: Code(s): N28.1 - Cyst of kidney, acquired Category: Medical Plan: Benign renal cysts Being followed by Urology. Orders: Orders Calcium, 24 Hr Ur Today N20.1 - Calculus of ureter, Z87.442 - Personal history of urinary calculi Oxalate, 24 Hr Today N20.1 - Calculus of ureter, Z87.442 - Personal history of urinary calculi Uric Acid, 24Hr Urine Group Today N20.1 - Calculus of ureter, Z87.442 - Personal history of urinary calculi Citric Acid 24hr Urine Today N20.1 - Calculus of ureter, Z87.442 - Personal history of urinary calculi Sodium, 24Hr Urine Group Today N20.1 - Calculus of ureter, Z87.442 - Personal history of urinary calculi Creatinine, 24 Hr Group Today N20.1 - Calculus of ureter, Z87.442 - Personal history of urinary calculi Comprehensive Met. Panel Today I10 - Essential (primary) hypertension, N28.1 - Cyst of kidney, acquired UA and rflx microscopic Today I10 - Essential (primary) hypertension, N28.1 - Cyst of kidney, acquired Uric Acid Today I10 - Essential (primary) hypertension, N28.1 - Cyst of kidney, acquired Patient Instructions: - Collect urine for 24 hours as instructed and return it to the lab. - Drink plenty of water, especially with lemon, to help prevent kidney stones. - Continue taking your blood pressure medications as prescribed. - Monitor your diet for salt intake, especially when eating out. Coding Level of Care Code New Pt Level 4 (66795) Diagnoses History of kidney stones Z87.442 Bilateral renal cysts N28.1
[2025-03-07 15:03] VITALS: BP 114/62; PULSE 69; O2SAT 97; BMI 40.9
== END 2025-03-07 15:32 | disposition home or self-care (01) ==
LOC: HO.HKA 14:56
PROVIDERS: Referring Provider Urology; Visit Provider Internal Medicine Hypertension Specialist
DX: N28.1 Cyst of kidney, acquired (principal); Z87.442 Personal history of urinary calculi
CPT/HCPCS: 99214

== ENCOUNTER 2025-05-04 06:38 | Outpatient (REF) | payer OTHER, SELFPAY ==
[2025-05-04 06:52] LABS: MANUAL DIFF FLAG NO
[2025-05-04 07:17] LABS: Hematocrit 44.1 % (42.0-52.0); Hemoglobin 14.8 g/dl (14.0-18.0); Imm Gran Abs Auto 0.02 X10*3/uL (0.00-0.03); Imm Gran Pct Auto 0.3 % (0.0-0.4); Lymphocytes Absolute Auto 1.7 X10*3/uL (1.2-4.9); Mean Corpuscular HGB Conc 33.6 g/dl (31.0-36.0); Mean Corpuscular Hemoglobin 28.2 pg (27.0-33.0); Mean Corpuscular Volume 84.2 fL (80.0-98.0); NRBC Abs Auto 0.000 X10*3/uL (0.0-0.012); NRBC Pct Auto 0.0 /100WBC (0.0-0.2); Platelet Count 242 X10*3/uL (160-400); Red Blood Count 5.24 X10*6/uL (4.60-5.80); White Blood Count 6.0 X10*3/uL (4.8-10.8)
[2025-05-04 07:41] LABS: Appearance Urine Clear; Glucose Urine UA Negative (Negative); PH 5.5 (5.0-9.0); Specific Gravity - Urine 1.020 (1.005-1.025)
[2025-05-04 08:03] LABS: Alanine Aminotransferase 20 U/L (0-40); Albumin Level 4.5 g/dL (3.5-5.0); Alkaline Phosphatase 83 U/L (39-117); Anion Gap 14 (12-20); Aspartate Amino Transferase 21 U/L (5-37); Blood Urea Nitrogen 21 mg/dL (9-16); Calcium 9.6 mg/dL (8.4-10.2); Carbon Dioxide 26 mmol/L (22-29); Chloride 107 mmol/L (96-108); Cholesterol 181 mg/dL (<200); Estimated Glomerular Filt Rate 56; HDL Cholesterol 36 mg/dL (>40); Potassium 4.6 mmol/L (3.3-5.1); Sodium 142 mmol/L (135-145); Total Protein 7.6 g/dL (6.5-8.0); Triglycerides 153 mg/dL (<150)
[2025-05-04 08:36] LABS: Microalbum/Creatinine Ratio Ur 18.0 ug/mg cr (<30)
== END 2025-05-04 06:39 | disposition home or self-care (01) ==
LOC: HO.LAB 06:38
DX: I10 Essential (primary) hypertension (principal); N40.1 Benign prostatic hyperplasia with lower urinary tract symptoms; N17.9 Acute kidney failure, unspecified; E66.01 Morbid (severe) obesity due to excess calories; R97.20 Elevated prostate specific antigen [PSA]; R73.03 Prediabetes; R80.9 Proteinuria, unspecified
CPT/HCPCS: 36415; 80053; 80061; 81003; 82043; 82306; 82570; 83036; 84443; 85025

== ENCOUNTER 2025-05-09 07:35 | Outpatient (REF) | payer OTHER, SELFPAY ==
[2025-05-09 09:05] LABS: Appearance Urine Clear; Glucose Urine UA Negative (Negative); PH 5.5 (5.0-9.0); Specific Gravity - Urine 1.015 (1.005-1.025)
[2025-05-09 09:48] LABS: Creatinine, mg/dL 48.41
[2025-05-09 09:51] LABS: Alanine Aminotransferase 21 U/L (0-40); Albumin Level 4.6 g/dL (3.5-5.0); Alkaline Phosphatase 88 U/L (39-117); Anion Gap 13 (12-20); Aspartate Amino Transferase 24 U/L (5-37); Blood Urea Nitrogen 16 mg/dL (9-16); Calcium 9.7 mg/dL (8.4-10.2); Carbon Dioxide 25 mmol/L (22-29); Chloride 105 mmol/L (96-108); Estimated Glomerular Filt Rate 59; Potassium 4.2 mmol/L (3.3-5.1); Sodium 139 mmol/L (135-145); Total Protein 7.9 g/dL (6.5-8.0); Uric Acid 7.1 mg/dL (3.4-7.0)
[2025-05-09 10:16] LABS: Creatinine, mg/dL 46.62; Sodium, 24 Hr Urine 97.0 mmol/L
[2025-05-09 10:26] LABS: Creatinine, mg/dL 47.14; Uric Acid, mg/dL 19.3 mg/dL
[2025-05-09 11:43] LABS: Total Volume 24 Hour Urine 2375 mL
[2025-05-09 11:44] LABS: Total Volume 24 Hour Urine 2375 mL
[2025-05-09 15:00] LABS: Total Volume 24 Hour Urine 2375 mL
[2025-05-12 18:58] LABS: Calcium/Creatinine Ratio 61 mg/g creat (30-210); Creatinine 24Hr Urine 1.21 g/24 h (0.50-2.15)
[2025-05-14 22:14] LABS: 24hr Urine Total Volume 2375 mL; Oxalic Acid 24 Urine 30.0 mg/24 h (3.6-38.0)
[2025-05-17 07:22] LABS: 24hr Urine Total Volume 2375 mL; Citric Acid, 24hr Urine 214 mg/24 h (100-1300); Citric Acid/Creat Ratio 24U 178 mg/g creat (60-660); Creatinine, 24U 1.20 g/24 h (0.50-2.15)
== END 2025-05-09 07:36 | disposition home or self-care (01) ==
LOC: HO.LAB 07:35
PROVIDERS: Visit Provider Internal Medicine Hypertension Specialist
DX: Z00.00 Encounter for general adult medical examination without abnormal findings (principal); N20.1 Calculus of ureter; N28.1 Cyst of kidney, acquired; I10 Essential (primary) hypertension; E66.01 Morbid (severe) obesity due to excess calories; Z87.442 Personal history of urinary calculi
CPT/HCPCS: 36415; 80053; 81003; 82340; 82507; 82570; 82947; 83945; 84300; 84550; 84560

== ENCOUNTER 2025-05-11 07:24 | Outpatient (REF) | payer OTHER, SELFPAY ==
[2025-05-11 08:23] LABS: Prostate Specific Antigen 6.05 ng/mL (<0.05-4.0)
== END 2025-05-11 07:25 | disposition home or self-care (01) ==
LOC: HO.LAB 07:24
PROVIDERS: Visit Provider Urology
DX: Z12.5 Encounter for screening for malignant neoplasm of prostate (principal); R97.20 Elevated prostate specific antigen [PSA]
CPT/HCPCS: 36415; 84153

== ENCOUNTER 2025-05-12 07:21 | Outpatient (AMB) | payer OTHER, SELFPAY ==
--- NOTE | 2025-05-12 07:21 | A.OFFVIS_ITS ---
Intake Visit Reasons: 6wk/PSA (set) Intake Note: Patient presents today for 6 wk follow up Urology Med: Tamsulosin Antibiotic Allergy: None Blood Thinner: None Labs done: 05/11/25 PSA 6.05 Ocular Care Technologist Required: No Accompanied by: Self / Same As Patient Allergies No Known Allergies Allergy (Verified 05/17/25 10:58) Medication List - Last Reconciled 05/12/25 by Michelle Parish MD amlodipine 10 mg See Protocol PO DAILY cholecalciferol (vitamin D3) 50 mcg PO DAILY PRN metoprolol tartrate 100 mg See Protocol PO BID tamsulosin 0.4 mg PO BEDTIME 30 days HPI Comments Details: 05/12/2025-- History of Present Illness The patient is a 69 year old male presenting for follow-up on an elevated PSA. His PSA level was 4.43 on 08/07/24 and a repeat measurement on 05/11/25 was 6.05. The patient has a history of nephrolithiasis. He also has benign prostatic hyperplasia causing lower urinary tract symptoms, for which he takes tamsulosin. He denies being on any blood thinners, including aspirin. Results - PSA: 6.05 on 05/11/2025, increased from 4.43 on 08/07/2024 (Normal range: 0- 4). Plan 1. Elevated Prostate-Specific Antigen - prostate biopsy discussed 2. Benign Prostatic Hyperplasia With Lower Urinary Tract Symptoms - Continue tamsulosin for management of lower urinary tract symptoms. 02/24/25--Ermias is a 69-year-old gentleman who has a history of nephrolithiasis. Discussed 24 hour urine results collected:10/06/24-- Total volume 1.91 L, Calcium 238 mg; Oxalate 34 mg, Citrate 370 mg, Sodium 243. Instructed on importance of fluid intake. The patient has an elevated PSA--08/07/2024 PSA 4.43 ng/mL. 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 History of Present Illness The patient is a 69-year-old male presenting for follow-up on nephrolithiasis. He has a history of kidney stones and underwent a 24-hour urine collection to assess risk factors for stone formation. The urine analysis revealed hypercalciuria with a calcium level of 238 mg/day, which is higher than desired. Additionally, the urine citrate level was low at 370 mg/day, indicating hypocitraturia, and the urine sodium was elevated at 243 mmol/day, indicating hypernatriuria. The patient also has proteinuria, which was noted during the current evaluation. He was previously seen by nephrology for a kidney injury and will be referred back for further evaluation of these findings. The patient's PSA was previously noted to be elevated, and a repeat test is planned to monitor this finding. He reports no current issues with urination, although he previously experienced pain during urination. Results - Urine calcium: 238 mg/day (elevated) - Urine citrate: 370 mg/day (low) - Urine sodium: 243 mmol/day (elevated) - Proteinuria: present - PSA: previously elevated, repeat test planned Plan 1. Nephrolithiasis - Continue monitoring fluid intake to achieve 2 to 2.5 liters per day. - Referral to nephrology for further evaluation and management of hypercalciuria and proteinuria. - Dietary modifications to reduce sodium intake. - Consideration of lemon juice as a natural inhibitor of stone formation. 2. Elevated Prostate-Specific Antigen (Psa) - Repeat PSA test planned to monitor levels. - Continue current medication regimen including tamsulosin. [facility] Medical History Hypertension Surgical History No pertinent past surgical history Social History Household Members: Family and Children Housing: House Are you a primary career representative to a significant other at home: No Do you presently have visiting nurse or other home services: No Patient Tobacco Use Status: Never used Tobacco e-Cigarette/Vaping Use: Never Used service: No Cognitive needs: No Hearing needs: No Vision needs: No Review of Systems Const All systems reviewed & are unremarkable except as noted in HPI and below Reports no additional complaints Eyes Reports no additional complaints ENT Reports no additional complaints Card Reports no additional complaints Resp Reports no additional complaints GI Reports no additional complaints Reports as per HPI Musc Reports no additional complaints Skin/Breast Reports system reviewed and no additional complaints, except as documented Neuro Reports no additional complaints Psych Reports no additional complaints Endo Reports no additional complaints Mike/Lymph Reports no additional complaints Aller/Immun Reports no additional complaints Telehealth Telehealth Telehealth Platform: SecureAuth Location of provider rendering services: practice address Location of patient: address on file Patient Identification confirmed using: Name, : Yes Telehealth method: video Patient verbally consented to treatment: Yes Patient verbally consented to billing insurance company: Yes Patient informed of any privacy concerns related to visit: Yes Results Reviewed Results Reviewed: Date of Service: 08/13/24 EXAMINATION: US KIDNEY BILATERAL HISTORY: N20.1 - Calculus of ureter TECHNIQUE: Real-time grayscale ultrasound imaging of the kidneys was performed and images were reviewed. COMPARISON: Comparison is made with the prior examination dated 06/20/2024. FINDINGS: Right kidney: The right kidney measures 12.4 x 5.0 x 5.4 cm. Renal parenchymal echotexture and thickness are normal. There is an upper pole cyst measuring 1.2 x 1.3 x 1.5 cm. There is no hydronephrosis or renal calculi. Left Kidney: The left kidney measures 11.0 x 5.8 x 4.5 cm. Renal parenchymal echotexture and thickness are normal. There is a 1.5 x 1.1 x 1.3 cm cyst in the interpolar region and a 1.0 by 0.9 x 0.9 cm cyst at the lower pole. There is no hydronephrosis or renal calculi. IMPRESSION: Bilateral renal cysts as described. Otherwise unremarkable renal ultrasound. No calculi are identified. EDIN: 06/21/24 STATUS: COMP REQ : [id number] RECD: 06/22/[address]: Michelle Parish MD COMP: 06/26/24 ENTERED: 06/22/[address]: ORDERED: Kidney Stone QUERIES: Kidney Stone Source: LTURETERALSTONE Test Result Flag Reference Component 1 SEE NOTE Calcium Oxalate Dihydrate (Weddellite) 10% Calcium Oxalate Monohydrate (Whewellite) 90% Stone Weight 0.014 g This test was developed and its analytical performance characteristics have been determined by [employer]. It has not been cleared or approved by FDA. This assay has been validated pursuant to the CLIA regulations and is used for clinical purposes. THIS TEST WAS PERFORMED AT: [facility] [address] [place] [address] GERONIMO CHAMPAGNE MD,PHD,LAURITA Stone Source LEFT URETERAL STONE Assessment & Plan Assessment & Plan (1) Proteinuria: Code(s): R80.9 - Proteinuria, unspecified Category: Medical Qualifiers: Proteinuria type: unspecified Qualified Code(s): R80.9 - Proteinuria, unspecified (2) Hypercalciuria: Code(s): R82.994 - Hypercalciuria Category: Medical (3) History of kidney stones: Code(s): Z87.442 - Personal history of urinary calculi Category: Medical (4) Bilateral renal cysts: Code(s): N28.1 - Cyst of kidney, acquired Category: Medical (5) Elevated PSA: Code(s): R97.20 - Elevated prostate specific antigen [PSA] Category: Medical Plan Plan 1. Elevated Prostate-Specific Antigen - prostate biopsy discussed 2. Benign Prostatic Hyperplasia With Lower Urinary Tract Symptoms - Continue tamsulosin for management of lower urinary tract symptoms. Patient Instructions: The patient had an opportunity to ask questions regarding treatment plan. The patient expressed understanding and agreement with the above treatment plan. The patient is aware they should contact our office by phone for worsening of their current condition or the appearance of new symptoms. Compliance is encouraged with any medications and followup testing that is ordered. It is a privilege to be allowed the opportunity to participate in the urologic care of your patient. If you have any questions or concerns regarding treatment for the above conditions please do not hesitate to contact me. The office telephone contact is [phone]. This note is constructed in part using voice recognition software. While every effort has been made to ensure accuracy alarm installer errors may have been included. Yours sincerely, Michelle Parish MD Scribe Plan - Not visible on output: Patient was informed and verbally consented to the use of an ambient scribe for clinic note documentation during this visit. Coding Level of Care Code Tele Est Pt Level 4 (80943) Diagnoses Proteinuria, unspecified type R80.9 Proteinuria type: unspecified Hypercalciuria R82.994 History of kidney stones Z87.442 Bilateral renal cysts N28.1 Elevated PSA R97.20
== END 2025-05-12 09:07 | disposition home or self-care (01) ==
LOC: HO.HUSH 07:21
PROVIDERS: Visit Provider Urology
DX: R80.9 Proteinuria, unspecified (principal); R82.994 Hypercalciuria; Z87.442 Personal history of urinary calculi; N28.1 Cyst of kidney, acquired; R97.20 Elevated prostate specific antigen [PSA]
CPT/HCPCS: 99214

== ENCOUNTER 2025-05-16 09:32 | Outpatient (AMB) | payer OTHER, SELFPAY ==
[2025-05-16 09:39] VITALS: BP 116/68; PULSE 63; O2SAT 96; BMI 40.6
--- NOTE | 2025-05-16 09:39 | HO.NEPHOV_ITS ---
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 - History of nephrolithiasis with one stone episode a year ago. - 24-hour urine collection showed hypercalciuria and proteinuria. - Denies current kidney or back pain. - Hypertension managed with amlodipine and metoprolol. - Drinks four to five bottles of water daily with lemon. - Frequent restaurant meals, high in salt. - Renal cyst monitored via ultrasound and CT scan. 05/16/25 The patient is a 69 year old male presenting for a follow-up visit for management of his kidney condition and hypertension. He reports that his hypertension is well-controlled on his current medications, amlodipine and metoprolol, with home readings of 120 or 116. Regarding his kidney status, lab results indicate stable function with adequate urinary calcium and good oxalate levels. His sodium was previously high, which he attributes to his diet, including metz. He denies any kidney-related pain. The patient reports that another provider prescribed an antibiotic, possibly Levaquin, due to his PSA level. 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 He plans to discuss these concerns with Dr. King. [facility] Medical History Hypertension Surgical History No pertinent past surgical history Social History Household Members: Family and Children Housing: House Are you a primary primary care sales representative to a significant other at home: No Do you presently have visiting nurse or other home services: No Patient Tobacco Use Status: Never used Tobacco e-Cigarette/Vaping Use: Never Used service: No Cognitive needs: No Hearing needs: No Vision needs: No Physical Exam Vital Signs: Last Vital Signs Pulse 63 05/16/25 09:39 BP 116/68 05/16/25 09:39 Pulse Ox 96 05/16/25 09:39 Oxygen Delivery Method Room Air 05/16/25 09:39 BMI result Body Mass Index 40.6 Comfortable Neck supple no JVD. Lungs entry equal no rales. Heart S1-S2 heard no gallop or rub. Abdomen soft nontender. Neuro alert awake oriented. No asterixis. Extremities no edema. Results Reviewed Nephrology Results: Hgb, (14.0-18.0) 14.8 g/dl 05/04/25 WBC, (4.8-10.8) 6.0 X10*3/uL 05/04/25 Plt Count, (160-400) 242 X10*3/uL 05/04/25 Sodium, (135-145) 139 mmol/L 05/09/25 Potassium, (3.3-5.1) 4.2 mmol/L 05/09/25 Chloride, (96-108) 105 mmol/L 05/09/25 Carbon Dioxide, (22-29) 25 mmol/L 05/09/25 BUN, (9-16) 16 mg/dL 05/09/25 Creatinine, (0.5-1.4) 1.22 mg/dL 05/09/25 Calcium, (8.4-10.2) 9.7 mg/dL 05/09/25 Urine Protein, (Neg-Trace) Negative mg/dL 05/09/25 Urine Creatinine 199.10 mg/dL 05/04/25 Renal US 08/13/24 Assessment & Plan Assessment & Plan (1) History of kidney stones: Code(s): Z87.442 - Personal history of urinary calculi Category: Medical Plan: Twenty-four urine collection to past did not reveal any hypercalciuria. He had hypo citraturia. Uric acid excretion was elevated. Sodium excretion were elevated. Repeat 24 urine collection is in progress Encouraged to stay on low-sodium diet Increase citrate intake. Increase PO fluids (2) Bilateral renal cysts: Code(s): N28.1 - Cyst of kidney, acquired Category: Medical Plan: Benign renal cysts Being followed by Urology. Orders: Orders Basic Metabolic Panel 5 Months I10 - Essential (primary) hypertension, Z87.442 - Personal history of urinary calculi UA and rflx microscopic 5 Months I10 - Essential (primary) hypertension, Z87.442 - Personal history of urinary calculi Coding Level of Care Code Est Pt Level 4 (95983) Diagnoses History of kidney stones Z87.442 Bilateral renal cysts N28.1
== END 2025-05-16 09:53 | disposition home or self-care (01) ==
LOC: HO.HKA 09:32
PROVIDERS: Visit Provider Internal Medicine Hypertension Specialist
DX: Z87.442 Personal history of urinary calculi (principal); N28.1 Cyst of kidney, acquired
CPT/HCPCS: 99214

== ENCOUNTER 2025-05-17 10:30 | Outpatient (AMB) | payer OTHER, SELFPAY ==
[2025-05-17 10:43] VITALS: BP 128/76; PULSE 74; O2SAT 98; BMI 40.7
--- NOTE | 2025-05-17 10:43 | MHC.PC.OV ---
Vital Signs 05/17/25 10:43 Height 5 ft 3 in Weight 230 lb BMI 40.7 BP 128/76 Blood Pressure Location Lt brachial Position Sitting Pulse 74 Pulse Source Pulse Oximeter Pulse Oximetry (%) 98 Oxygen Delivery Method Room Air Intake Visit Reasons: 3 mo htn/prediabetes/obesity Allergies No Known Allergies Allergy (Verified 05/17/25 10:58) Medication List - Last Reconciled 05/17/25 by PAULA Mcdermott amlodipine 10 mg See Protocol PO DAILY metoprolol tartrate 100 mg See Protocol PO BID tamsulosin 0.4 mg PO BEDTIME 30 days Tobacco use date assessed: 01/25/25 Dental Screening Dental Screen Date: 01/25/25 HPI HPI Comments History of Present Illness Details History of Present Illness The patient is a 69 year old male presenting for a follow-up visit to review lab results and discuss concerns regarding an upcoming prostate biopsy, including the prescribed antibiotic Cipro. The patient has a history of significantly high blood pressure for his entire life, which is now well-managed with two medications, a 10 mg pill and a 100 mg pill. His current blood pressure reading is good. He is scheduled for a prostate biopsy due to an elevated prostate-specific antigen level. The biopsy procedure will involve going through the rectum. Ciprofloxacin was prescribed for prophylaxis but he has not started it due to concerns about side effects like memory loss and , which he read on an informational paper. Recent lab work shows improvement in kidney function, with the eGFR increasing from 56 to 59, and he reports drinking more water with lemon. His lab results indicate he is in the prediabetic range. His triglycerides have decreased from 192 to 153 mg/dL, approaching the normal range of less than 150 mg/dL, but his bad cholesterol has slightly increased. His vitamin D level has improved to 35, which is above the desired level of 30, despite not taking his supplement recently due to not having time to purchase it. There is no anemia noted on his last two labs. His diet includes frequent consumption of bread, sandwiches, buttered bread, rice, red meat, and pork. He reports making an effort to walk more, especially after eating. Health Maintenance - Scheduled for a prostate biopsy due to elevated prostate-specific antigen levels. - Discussed dietary modifications to manage prediabetes and hyperlipidemia, including limiting carbohydrates like rice and bread, as well as red meat, pork, and egg yolks. - Advised to resume vitamin D supplementation to maintain energy levels. - Encouraged to continue increased water intake to support kidney function. 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 - Alcohol Use: Denies alcohol use. - Nutrition: Reports eating a lot of bread, including sandwiches and buttered bread from a bakery almost every morning. - Also consumes rice, pork, and red meat. - Exercise: Reports walking more, especially around his truck after eating, instead of resting in his cab. Results - CBC: No anemia on the last two labs. - Comprehensive Metabolic Panel: - eGFR: Improved from 56 to 59. - Liver function: Good. - Glucose: In prediabetic range. - Lipid Panel: - Triglycerides: Decreased from 192 to 153 mg/dL. - Bad cholesterol: Slightly elevated. - Uric Acid: Normal. - Vitamin D: 35 ng/mL. - Urinalysis: Normal. [facility] Medical History Hypertension Surgical History No pertinent past surgical history Social History Household Members: Family and Children Housing: House Are you a primary overnight caregiver to a significant other at home: No Do you presently have visiting nurse or other home services: No Patient Tobacco Use Status: Never used Tobacco e-Cigarette/Vaping Use: Never Used service: No Cognitive needs: No Hearing needs: No Vision needs: No Questionnaire PHQ-9 Over the last 2 weeks, how often have you been bothered by any of the following problems? Depression Screening Interpretation: Positive Depression Screening Done: Yes Source: Developed by Drs. Santiago Baker, Rema Shah, Nigel Lvoe and colleagues, with an educational marija from [employer]. Thrive Questionnaire Date Thrive assessed: 06/30/24 I am a: Patient What is your living situation today?: I have a steady place to live Within the past 12 months, did the food you bought not last and you didn't have the money to get more?: Never true Within the past 12 months, did you worry whether your food would run out before you got money to buy more?: Never true Do you have trouble paying for medicines?: No Do you have trouble getting transportation to medical appointments?: No Do you have trouble paying your heating and electricity bill?: No Do you have trouble taking care of your child, family member or friend?: No Do you have trouble with day-to-day activities such as bathing, preparing meals, shopping, managing finances, etc.?: No Are you currently unemployed and looking for a job?: No Are you interested in more education?: No Please select the resources that you would like help with: None Currently or been in a relationship where the following occur: I choose not to answer THRIVE Score: 0 SUSAN-7 AMB Questionnaire SUSAN-7 Date SUSAN - 7 assessed: 01/25/25 Source: Developed by Drs. Santiago Baker, Rema Shah, Nigel Love and colleagues, with an educational marija from [employer]. Review of Systems Narrative Review of Systems - General: Denies fatigue when vitamin D level is sufficient. - Musculoskeletal: Denies joint pain. Const Denies headache(s) Eyes Denies loss of vision ENT Denies vertigo, Denies dizziness, Denies headache(s) and Denies sore throat Card Denies chest pain, Denies leg edema and Denies lightheadedness Resp Denies cough, Denies hemoptysis and Denies wheezing GI Denies abdominal pain, Denies melena, Denies constipation, Denies diarrhea and Denies vomiting Denies dysuria, Reports nocturia and Denies urinary urgency Musc Denies arthralgias, Denies joint swelling, Denies numbness and Denies tingling Neuro Denies Abnormal speech present, Denies behavioral changes, Denies vertigo, Denies dizziness, Denies headache(s), Denies loss of vision, Denies memory loss, Denies numbness and Denies tingling Psych Denies anxiety, Denies behavioral changes, Denies depression, Denies memory loss and Denies panic attacks Mike/Lymph Denies easy bleeding and Denies easy bruising Aller/Immun Denies wheezing Physical exam (Primary Care) Vital Signs: Last Vital Signs Pulse 74 05/17/25 10:43 BP 128/76 05/17/25 10:43 Pulse Ox 98 05/17/25 10:43 Oxygen Delivery Method Room Air 05/17/25 10:43 BMI result Body Mass Index 40.7 Tobacco/Smoking Status: Tobacco use Status Tobacco use date assessed 01/25/25 05/17/25 10:49 Patient Tobacco Use Status Never used Tobacco 05/17/25 10:49 e-Cigarette/Vaping Use Never Used 05/17/25 10:49 Depression Screening Interpretation: Positive Thrive Assessment: Date of Thrive Assessment Date Thrive assessed 06/30/24 05/17/25 10:49 Currently or been in a relationship where the following occur: I choose not to answer Narrative Physical Exam - Vitals: Blood pressure is good. - Respiratory: Lungs are clear to auscultation bilaterally. Const General: healthy appearing, no acute distress, alert and awake Nutritional Appearance: well nourished Orientation/consciousness: oriented to person, oriented to place and oriented to time HENMT Ears: hearing grossly normal bilaterally General nose exam: Normal external nose present Eyes Conjunctivae: conjunctivae normal Sclerae: sclerae normal Pupils: Equal, round and reactive pupils present Neck Neck: Yes no lymphadenopathy and Yes no JVD Thyroid: Thyroid normal Carotids: no bruits Resp Effort & Inspection: normal respiratory effort and not tachypneic Auscultation: no crackles, no rales, no rhonchi and no wheezes Cardio Rate: regular rate Rhythm: regular rhythm Heart sounds: no murmurs and normal S1 and S2 GI Palpation (GI): Soft to palpation, nontender, no hepatomegaly and no splenomegaly Auscultation: normal bowel sounds Skin General skin exam: no rashes or lesions noted and dry skin Neuro General: oriented to person, oriented to place and oriented to time Cranial nerves: Yes Equal, round and reactive pupils present Speech: No Abnormal speech present Gait exam (Neuro): Normal gait present Motor exam (neuro): no tremor noted Extrem Right upper extremity: full ROM Left upper extremity: full ROM Right lower extremity: full ROM; no edema Left lower extremity: full ROM; no edema Psych Mental Status: mental status grossly normal Speech and movement: Normal speech and movement present Affect: normal affect Attitude: cooperative Thought process: Normal thought process present Results Reviewed Results Reviewed: Laboratory Tests 05/04/25 05/04/25 05/09/25 06:45 06:51 07:49 WBC 6.0 RBC 5.24 Hgb 14.8 Hct 44.1 MCV 84.2 MCH 28.2 MCHC 33.6 RDW 13.0 Plt Count 242 Sodium 139 Potassium 4.2 Chloride 105 Carbon Dioxide 25 Anion Gap 13 BUN 16 Creatinine 1.22 Estimated GFR 59 Random Glucose 125 H Fasting Glucose 128 H Uric Acid 7.1 H Calcium 9.7 Total Bilirubin 0.7 AST 24 ALT 21 Alkaline Phosphatase 88 Total Protein 7.9 Albumin 4.6 Triglycerides 153 H Cholesterol 181 LDL Cholesterol, Calc 115 H HDL Cholesterol 36 L Prostate Specific Ag 25-OH Vitamin D Total 35.0 TSH 3.54 Urine Color Yellow Urine Appearance Clear Urine pH 5.5 Ur Specific [place] 1.020 Urine Protein Negative Urine Glucose (UA) Negative Urine Ketones Negative Urine Blood Negative Urine Nitrite Negative Ur Leukocyte Esterase Negative 05/11/25 07:10 WBC RBC Hgb Hct MCV MCH MCHC RDW Plt Count Sodium Potassium Chloride Carbon Dioxide Anion Gap BUN Creatinine Estimated GFR Random Glucose Fasting Glucose Uric Acid Calcium Total Bilirubin AST ALT Alkaline Phosphatase Total Protein Albumin Triglycerides Cholesterol LDL Cholesterol, Calc HDL Cholesterol Prostate Specific Ag 6.05 H 25-OH Vitamin D Total TSH Urine Color Urine Appearance Urine pH Ur Specific [place] Urine Protein Urine Glucose (UA) Urine Ketones Urine Blood Urine Nitrite Ur Leukocyte Esterase Coding Level of Care Code Est Pt Level 4 (42722) Diagnoses Hypertension, unspecified type I10 Hypertension type: unspecified Morbid obesity E66.01 Proteinuria, unspecified type R80.9 Proteinuria type: unspecified Elevated PSA R97.20 Vitamin D deficiency E55.9 Pure hypertriglyceridemia E78.1 Hyperlipidemia type: pure hypertriglyceridemia Type 2 diabetes mellitus with other specified complication, without long-term current use of insulin E11.69 Diabetes mellitus type: type 2 Diabetes mellitus manager long term care insulin use: without prison use Diabetes mellitus complication status: with other specified complication Time Spent (min) 36 Assessment & Plan Assessment & Plan (1) Hypertension: Code(s): I10 - Essential (primary) hypertension Category: Medical Qualifiers: Hypertension type: unspecified Qualified Code(s): I10 - Essential (primary) hypertension Plan: Blood pressure 128/76 within goal Reinforced low-salt diet Continue metoprolol tartrate 100 mg b.i.d., amlodipine 100 mg daily (2) Morbid obesity: Code(s): E66.01 - Morbid (severe) obesity due to excess calories Category: Medical Plan: Encouraged to exercise for at least 30 minutes a day/5 days a week Healthy eating discussed. Encouraged to eat fruits/vegetables, protein-fish/baked chicken, and to avoid salty/fried foods, sweets, caffeine and carbohydrates. Encouraged to increase water intake 6-8 glasses a day (3) Proteinuria: Code(s): R80.9 - Proteinuria, unspecified Category: Medical Qualifiers: Proteinuria type: unspecified Qualified Code(s): R80.9 - Proteinuria, unspecified Plan: Encouraged adequate hydration and blood pressure management (4) Elevated PSA: Code(s): R97.20 - Elevated prostate specific antigen [PSA] Category: Medical Plan: The patient is scheduled for a prostate biopsy with a specialist due to high prostate numbers. He was prescribed Ciprofloxacin as a prophylactic antibiotic to prevent infection from the procedure, which involves accessing the prostate through the rectum. The patient was counseled that Cipro is a safe and appropriate medication for this purpose, despite his concerns about side effects he read about. He was instructed to take the medication twice a day for a total of four days: starting two days before the procedure, continuing on the day of the procedure, and on the day after the procedure. He was advised to follow up with the specialist's office regarding insurance clearance and the exact timing for starting the medication. The patient was reassured that prostate cancer, if found, is highly treatable, especially in the early stages. (5) Vitamin D deficiency: Code(s): E55.9 - Vitamin D deficiency, unspecified Category: Medical Plan: Vitamin D is 35 improved from 25.7 Continue cholecalciferol 50 mcg daily (6) HLD (hyperlipidemia): Code(s): E78.5 - Hyperlipidemia, unspecified Category: Medical Qualifiers: Hyperlipidemia type: pure hypertriglyceridemia Qualified Code(s): E78.1 - Pure hyperglyceridemia Plan: Triglycerides is 153, decreased from 192; LDL 115 increased from 96; HLD 36 Discussed lifestyle modification Encouraged fish oil We will recheck lipid panel in 3 months (7) Diabetes mellitus: Code(s): E11.9 - Type 2 diabetes mellitus without complications Category: Medical Qualifiers: Diabetes mellitus type: type 2 Diabetes mellitus manager long term care insulin use: without manager long term care use Diabetes mellitus complication status: with other specified complication Qualified Code(s): E11.69 - Type 2 diabetes mellitus with other specified complication Plan: A1c 7.1% increase from 6.3%. Discussed with the patient that his blood sugar are now in the diabetic range. The patient wants to attempt to bring his blood sugar back down to the prediabetic range by changing his diet. Reinforced low sugar/carbohydrate diet and activity as tolerated. We will recheck fasting glucose and A1c in 3 months Orders: Orders Complete Blood Count Auto Diff 3 Months E55.9 - Vitamin D deficiency, unspecified, E66.01 - Morbid (severe) obesity due to excess calories, E78.1 - Pure hyperglyceridemia, I10 - Essential (primary) hypertension, R73.03 - Prediabetes Lipid Panel 3 Months E55.9 - Vitamin D deficiency, unspecified, E66.01 - Morbid (severe) obesity due to excess calories, E78.1 - Pure hyperglyceridemia, I10 - Essential (primary) hypertension, R73.03 - Prediabetes UA CC w/rflx Micro + Cult 3 Months E55.9 - Vitamin D deficiency, unspecified, E66.01 - Morbid (severe) obesity due to excess calories, E78.1 - Pure hyperglyceridemia, I10 - Essential (primary) hypertension, R73.03 - Prediabetes Vitamin D 25-OH Total 3 Months E55.9 - Vitamin D deficiency, unspecified, E66.01 - Morbid (severe) obesity due to excess calories, E78.1 - Pure hyperglyceridemia, I10 - Essential (primary) hypertension, R73.03 - Prediabetes Hemoglobin A1c 3 Months E55.9 - Vitamin D deficiency, unspecified, E66.01 - Morbid (severe) obesity due to excess calories, E78.1 - Pure hyperglyceridemia, I10 - Essential (primary) hypertension, R73.03 - Prediabetes Comprehensive Walker. Panel Fast 3 Months E55.9 - Vitamin D deficiency, unspecified, E66.01 - Morbid (severe) obesity due to excess calories, E78.1 - Pure hyperglyceridemia, I10 - Essential (primary) hypertension, R73.03 - Prediabetes TSH reflex Free T4 3 Months E55.9 - Vitamin D deficiency, unspecified, E66.01 - Morbid (severe) obesity due to excess calories, E78.1 - Pure hyperglyceridemia, I10 - Essential (primary) hypertension, R73.03 - Prediabetes Medications: Changed From cholecalciferol (vitamin D3) 50 mcg PO DAILY PRN To cholecalciferol (vitamin D3) 50 mcg PO DAILY 90 caps 3RF
== END 2025-05-17 11:24 | disposition home or self-care (01) ==
LOC: HO.HMCH 10:31
DX: E11.69 Type 2 diabetes mellitus with other specified complication (principal); I10 Essential (primary) hypertension; E66.01 Morbid (severe) obesity due to excess calories; Z68.41 Body mass index [BMI] 40.0-44.9, adult; R80.9 Proteinuria, unspecified; R97.20 Elevated prostate specific antigen [PSA]; E55.9 Vitamin D deficiency, unspecified; E78.1 Pure hyperglyceridemia

== ENCOUNTER 2025-05-27 07:26 | Outpatient (REF) | payer OTHER, SELFPAY ==
--- NOTE | 2025-05-27 10:25 | W.PM.OPN ---
Operative Note Operative Note Date of Service: 05/27/25 Narrative: PreOperative Diagnosis:? ? Elevated PSA Post Operative Diagnosis:??Elevated PSA Procedure:?Transrectal ultrasound measurement of prostate Surgeon:?Dr Michelle Parish Anesthesia:?NA Prostate biospy not performed as patient was in pain and after measurement of the prostate, procedure was ended. Plan: Schedule prostate biopsy under anesthesia. Indications for procedure: Elevated PSA Procedure: Preoperative antibiotics confirmed. After informed consent was verified the patient was placed on the procedure table in left lateral position. Patient identity confirmed. Safety pause time-out performed. Digital rectal exam performed to dilate rectal sphincter, iodine mixed with lubricant jelly 30 cc placed per rectum. Ultrasound probe was placed per rectum. The prostate was visualized. The prostate was measured width 5.11 cm, height 4.62 cm, length 4.95 cm with a volume of 61.2 mL. Due to pain, the procedure was terminated and prostate biopsies will be scheduled with anesthesia Complications: None
== END 2025-05-27 07:27 | disposition home or self-care (01) ==
LOC: HO.US 07:26
PROVIDERS: Visit Provider Urology
DX: R97.20 Elevated prostate specific antigen [PSA] (principal)
CPT/HCPCS: 76872

== ENCOUNTER → 2025-05-27 07:26 | Outpatient (BNV) | payer OTHER, SELFPAY | PROVIDERS: Visit Provider Urology | DX: R97.20 Elevated prostate specific antigen [PSA] (principal) | CPT/HCPCS: 76872 ==